=== PATIENT | male | born 1940 | race Caucasian/White ===

== ENCOUNTER → 2023-11-13 15:23 | Outpatient (REF) | payer MEDICARE, SELFPAY ==
[2023-11-13 16:14] LABS: % Basophils 0.2 % (0-2); % Immature Granulocytes 0.4 % (0-0.5); % Lymphocytes 17.1 % (20.5-51.1); % Monocytes 23.8 % (1.7-9.3); % Neutrophils 58.5 % (42.2-75.2); Absolute Lymphocytes 0.8 10^3/uL (1.2-3.4); Absolute Monocytes 1.1 10^3/uL (0.1-0.6); Absolute Neutrophils 2.7 10^3/uL (1.4-6.5); Hemoglobin 9.8 g/dL (13.0-18.0); Mean Corpuscular Hgb 35.5 pg (27.0-31.0); Mean Corpuscular Volume 101.4 fL (80.0-94.0); Mean Platelet Volume 9.8 fL (7.4-10.4); Nucleated Red Blood Cells % 0 % (-); Platelet Count 166 10^3/uL (130-400); Red Blood Cell Count 2.76 10^6/uL (4.70-6.10); White Blood Cell Count 4.6 10^3/uL (4.8-10.8)
[2023-11-13 17:38] LABS: ALT (SGPT) 13 U/L (0-50); AST (SGOT) 24 U/L (17-59); Albumin 4.3 g/dl (3.5-5.0); Alkaline Phosphatase 92 U/L (38-126); Blood Urea Nitrogen 24 mg/dl (9-20); Calcium 9.9 mg/dl (8.4-10.2); Carbon Dioxide 26 mmol/L (22-30); Chloride 101 mmol/L (98-107); Glucose 104 mg/dl (70-99); Potassium 4.2 mmol/L (3.5-5.1); Sodium 139 mmol/L (135-145); Total Bilirubin 0.6 mg/dl (0.2-1.3); Total Protein 6.9 g/dl (6.3-8.2); eGFR 54.17
== END ==
LOC: REG 15:23
PROVIDERS: ATTENDING PHYSICIAN Internal Medicine Hematology & Oncology; FAMILY PHYSICIAN Family Medicine
DX: C92.01 Acute myeloblastic leukemia, in remission (principal)
CPT/HCPCS: 36415; 80053; 85025

== ENCOUNTER → 2023-12-09 13:52 | Outpatient (REF) | payer MEDICARE, SELFPAY ==
[2023-12-09 14:16] LABS: % Basophils 1.7 % (0-2); % Eosinophils 0.6 % (0-6); % Immature Granulocytes 2.3 % (0-0.5); % Lymphocytes 34.5 % (20.5-51.1); % Monocytes 2.9 % (1.7-9.3); Absolute Lymphocytes 0.6 10^3/uL (1.2-3.4); Absolute Monocytes 0.1 10^3/uL (0.1-0.6); Hematocrit 24.6 % (39.0-52.0); Hemoglobin 8.4 g/dL (13.0-18.0); Mean Corp Hgb Conc. 34.1 g/dL (33.0-37.0); Mean Corpuscular Hgb 36.1 pg (27.0-31.0); Mean Corpuscular Volume 105.6 fL (80.0-94.0); Mean Platelet Volume 10.5 fL (7.4-10.4); Nucleated Red Blood Cells % 0 % (-); Platelet Count 86 10^3/uL (130-400); Red Blood Cell Count 2.33 10^6/uL (4.70-6.10); Red Cell Dist. Width 18.6 % (11.5-14.5); White Blood Cell Count 1.7 10^3/uL (4.8-10.8)
== END ==
LOC: REG 13:52
PROVIDERS: ATTENDING PHYSICIAN Registered Nurse; FAMILY PHYSICIAN Family Medicine
DX: C92.01 Acute myeloblastic leukemia, in remission (principal)
CPT/HCPCS: 36415; 85025

== ENCOUNTER → 2024-01-01 11:02 | Outpatient (REF) | payer MEDICARE, SELFPAY ==
[2024-01-01 10:27] LABS: % Basophils 0.4 % (0-2); % Immature Granulocytes 0.2 % (0-0.5); % Lymphocytes 9.3 % (20.5-51.1); % Monocytes 11.8 % (1.7-9.3); % Neutrophils 78.3 % (42.2-75.2); Absolute Lymphocytes 0.5 10^3/uL (1.2-3.4); Absolute Monocytes 0.7 10^3/uL (0.1-0.6); Absolute Neutrophils 4.4 10^3/uL (1.4-6.5); Hematocrit 31.2 % (39.0-52.0); Hemoglobin 10.4 g/dL (13.0-18.0); Mean Corp Hgb Conc. 33.3 g/dL (33.0-37.0); Mean Corpuscular Hgb 36.1 pg (27.0-31.0); Mean Corpuscular Volume 108.3 fL (80.0-94.0); Mean Platelet Volume 9.5 fL (7.4-10.4); Platelet Count 193 10^3/uL (130-400); Red Blood Cell Count 2.88 10^6/uL (4.70-6.10); Red Cell Dist. Width 15.5 % (11.5-14.5); White Blood Cell Count 5.6 10^3/uL (4.8-10.8)
== END ==
LOC: OIDL 11:02
PROVIDERS: ATTENDING PHYSICIAN Internal Medicine Hematology & Oncology
DX: C92.01 Acute myeloblastic leukemia, in remission (principal)
CPT/HCPCS: 85025

== ENCOUNTER → 2024-01-12 12:58 | Outpatient (REF) | payer MEDICARE, SELFPAY ==
[2024-01-12 13:56] LABS: % Eosinophils 0.5 % (0-6); % Monocytes 7.4 % (1.7-9.3); % Neutrophils 65.1 % (42.2-75.2); Absolute Lymphocytes 0.5 10^3/uL (1.2-3.4); Absolute Monocytes 0.2 10^3/uL (0.1-0.6); Absolute Neutrophils 1.3 10^3/uL (1.4-6.5); Hematocrit 24.8 % (39.0-52.0); Hemoglobin 8.5 g/dL (13.0-18.0); Mean Corp Hgb Conc. 34.3 g/dL (33.0-37.0); Mean Corpuscular Hgb 36.5 pg (27.0-31.0); Mean Corpuscular Volume 106.4 fL (80.0-94.0); Mean Platelet Volume 11.4 fL (7.4-10.4); Nucleated Red Blood Cells % 0 % (-); Platelet Count 55 10^3/uL (130-400); Red Blood Cell Count 2.33 10^6/uL (4.70-6.10); Red Cell Dist. Width 14.9 % (11.5-14.5)
== END ==
LOC: REG 12:58
PROVIDERS: ATTENDING PHYSICIAN Internal Medicine Hematology & Oncology; FAMILY PHYSICIAN Family Medicine
DX: C92.01 Acute myeloblastic leukemia, in remission (principal)
CPT/HCPCS: 36415; 85025

== ENCOUNTER → 2024-03-16 12:08 | Outpatient (REF) | payer MEDICARE, SELFPAY ==
[2024-03-16 13:58] LABS: % Basophils 0.2 % (0-2); % Immature Granulocytes 0.4 % (0-0.5); % Lymphocytes 19.8 % (20.5-51.1); % Monocytes 19.8 % (1.7-9.3); % Neutrophils 59.8 % (42.2-75.2); Hematocrit 28.9 % (39.0-52.0); Hemoglobin 9.9 g/dL (13.0-18.0); Mean Corp Hgb Conc. 34.3 g/dL (33.0-37.0); Mean Corpuscular Hgb 36.5 pg (27.0-31.0); Mean Corpuscular Volume 106.6 fL (80.0-94.0); Nucleated Red Blood Cells % 0 % (-); Platelet Count 217 10^3/uL (130-400); Red Blood Cell Count 2.71 10^6/uL (4.70-6.10); Red Cell Dist. Width 15.4 % (11.5-14.5)
[2024-03-16 14:45] LABS: ALT (SGPT) 18 U/L (0-50); AST (SGOT) 28 U/L (17-59); Albumin 4.7 g/dl (3.5-5.0); Alkaline Phosphatase 101 U/L (38-126); Blood Urea Nitrogen 23 mg/dl (9-20); Calcium 9.8 mg/dl (8.4-10.2); Carbon Dioxide 29 mmol/L (22-30); Chloride 104 mmol/L (98-107); Glucose 123 mg/dl (70-99); Potassium 4.4 mmol/L (3.5-5.1); Sodium 143 mmol/L (135-145); Total Bilirubin 0.7 mg/dl (0.2-1.3); Total Protein 7.3 g/dl (6.3-8.2); eGFR 59.26
== END ==
LOC: REG 12:08
PROVIDERS: ATTENDING PHYSICIAN Internal Medicine Hematology & Oncology; FAMILY PHYSICIAN Family Medicine
DX: C92.01 Acute myeloblastic leukemia, in remission (principal)
CPT/HCPCS: 36415; 80053; 85025

== ENCOUNTER → 2024-03-18 08:41 | Outpatient (REF) | payer MEDICARE, SELFPAY ==
[2024-03-18 08:55] VITALS: BP 156/65; BP_SYST 53
[2024-03-18] MEDS: ANCEF 10 IV (09:22)
[2024-03-18 10:30] VITALS: BP 147/52; BP_SYST 70
[2024-03-18 10:45] VITALS: BP 147/52
== END ==
LOC: RADI 08:41
PROVIDERS: ATTENDING PHYSICIAN Internal Medicine Hematology & Oncology; FAMILY PHYSICIAN Family Medicine
DX: C92.01 Acute myeloblastic leukemia, in remission (principal)
CPT/HCPCS: 36561; 76937; 77001; 99152; 99153; C1729; C1769

== ENCOUNTER → 2024-04-06 13:19 | Outpatient (REF) | payer MEDICARE, SELFPAY ==
[2024-04-06 14:37] LABS: % Basophils 0.6 % (0-2); % Eosinophils 0.6 % (0-6); % Immature Granulocytes 10.1 % (0-0.5); % Lymphocytes 28.3 % (20.5-51.1); % Monocytes 6.3 % (1.7-9.3); % Neutrophils 54.1 % (42.2-75.2); Absolute Immature Granulocytes 0.2 10^3/uL (0-0.05); Absolute Lymphocytes 0.5 10^3/uL (1.2-3.4); Absolute Monocytes 0.1 10^3/uL (0.1-0.6); Absolute Neutrophils 0.9 10^3/uL (1.4-6.5); Hematocrit 24.9 % (39.0-52.0); Hemoglobin 8.4 g/dL (13.0-18.0); Mean Corp Hgb Conc. 33.7 g/dL (33.0-37.0); Mean Corpuscular Hgb 35.6 pg (27.0-31.0); Mean Corpuscular Volume 105.5 fL (80.0-94.0); Mean Platelet Volume 12.7 fL (7.4-10.4); Nucleated Red Blood Cells % 0 % (-); Platelet Count 53 10^3/uL (130-400); Red Blood Cell Count 2.36 10^6/uL (4.70-6.10); Red Cell Dist. Width 14.7 % (11.5-14.5); White Blood Cell Count 1.6 10^3/uL (4.8-10.8)
[2024-04-06 15:49] LABS: ALT (SGPT) 14 U/L (0-50); AST (SGOT) 20 U/L (17-59); Albumin 4.3 g/dl (3.5-5.0); Alkaline Phosphatase 93 U/L (38-126); Blood Urea Nitrogen 25 mg/dl (9-20); Calcium 9.2 mg/dl (8.4-10.2); Carbon Dioxide 25 mmol/L (22-30); Chloride 105 mmol/L (98-107); Glucose 107 mg/dl (70-99); Sodium 138 mmol/L (135-145); Total Bilirubin 0.5 mg/dl (0.2-1.3); Total Protein 6.5 g/dl (6.3-8.2); eGFR 53.84
== END ==
LOC: REG 13:19
PROVIDERS: ATTENDING PHYSICIAN Internal Medicine Hematology & Oncology; FAMILY PHYSICIAN Family Medicine
DX: C92.01 Acute myeloblastic leukemia, in remission (principal)
CPT/HCPCS: 36415; 80053; 85025

== ENCOUNTER → 2024-04-20 14:06 | Outpatient (REF) | payer MEDICARE, SELFPAY ==
[2024-04-20 14:39] LABS: % Basophils 0.5 % (0-2); % Eosinophils 0.3 % (0-6); % Immature Granulocytes 0.5 % (0-0.5); % Lymphocytes 20.3 % (20.5-51.1); % Monocytes 8.9 % (1.7-9.3); % Neutrophils 69.5 % (42.2-75.2); Absolute Lymphocytes 0.8 10^3/uL (1.2-3.4); Absolute Monocytes 0.3 10^3/uL (0.1-0.6); Absolute Neutrophils 2.6 10^3/uL (1.4-6.5); Hematocrit 27.7 % (39.0-52.0); Hemoglobin 9.6 g/dL (13.0-18.0); Mean Corp Hgb Conc. 34.7 g/dL (33.0-37.0); Mean Corpuscular Hgb 36.5 pg (27.0-31.0); Mean Corpuscular Volume 105.3 fL (80.0-94.0); Mean Platelet Volume 9.7 fL (7.4-10.4); Nucleated Red Blood Cells % 0 % (-); Platelet Count 226 10^3/uL (130-400); Red Blood Cell Count 2.63 10^6/uL (4.70-6.10); Red Cell Dist. Width 14.6 % (11.5-14.5); White Blood Cell Count 3.8 10^3/uL (4.8-10.8)
== END ==
LOC: REG 14:06
PROVIDERS: ATTENDING PHYSICIAN Internal Medicine Hematology & Oncology; FAMILY PHYSICIAN Family Medicine
DX: C92.01 Acute myeloblastic leukemia, in remission (principal)
CPT/HCPCS: 36415; 85025

== ENCOUNTER → 2024-05-13 11:01 | Outpatient (REF) | payer MEDICARE, SELFPAY ==
[2024-05-13 13:26] LABS: Blood Urea Nitrogen 24 mg/dl (9-20); Calcium 9.7 mg/dl (8.4-10.2); Carbon Dioxide 24 mmol/L (22-30); Chloride 105 mmol/L (98-107); Glucose 109 mg/dl (70-99); Magnesium 1.9 mg/dl (1.6-2.3); Potassium 4.4 mmol/L (3.5-5.1); Sodium 139 mmol/L (135-145); eGFR 49.25
== END ==
LOC: REG 11:01
PROVIDERS: ATTENDING PHYSICIAN Internal Medicine Cardiovascular Disease; FAMILY PHYSICIAN Family Medicine
DX: I10 Essential (primary) hypertension (principal); I25.10 Atherosclerotic heart disease of native coronary artery without angina pectoris; E78.5 Hyperlipidemia, unspecified; I48.0 Paroxysmal atrial fibrillation
CPT/HCPCS: 36415; 80048; 83735

== ENCOUNTER → 2024-06-07 11:51 | Outpatient (REF) | payer MEDICARE, SELFPAY ==
[2024-06-07 13:21] LABS: Hematocrit 26.5 % (39.0-52.0); Hemoglobin 9.2 g/dL (13.0-18.0); Mean Corp Hgb Conc. 34.7 g/dL (33.0-37.0); Mean Corpuscular Hgb 34.5 pg (27.0-31.0); Mean Corpuscular Volume 99.3 fL (80.0-94.0); Mean Platelet Volume 10.2 fL (7.4-10.4); Platelet Count 221 10^3/uL (130-400); Red Blood Cell Count 2.67 10^6/uL (4.70-6.10); Red Cell Dist. Width 14.6 % (11.5-14.5); White Blood Cell Count 5.9 10^3/uL (4.8-10.8)
[2024-06-07 15:15] LABS: Segmented Neutrophils 66 % (42-75)
[2024-06-07 15:16] LABS: Lymphocytes 9 % (20-51); Monocytes 25 % (2-9); Normal RBC Morphology Yes; Platelets Checked Yes
[2024-06-07 15:17] LABS: Absolute Neutrophils -Man Diff 3.8 10^3/uL (1.4-6.5); Band Neutrophils 0 % (0-3); Total Cells Counted 100
== END ==
LOC: REG 11:51
PROVIDERS: ATTENDING PHYSICIAN Internal Medicine Hematology & Oncology; FAMILY PHYSICIAN Family Medicine
DX: C92.01 Acute myeloblastic leukemia, in remission (principal)
CPT/HCPCS: 36415; 85025

== ENCOUNTER → 2024-08-04 08:12 | Outpatient (REF) | payer MEDICARE, SELFPAY | LOC: RCS 08:12 | PROVIDERS: ATTENDING PHYSICIAN Internal Medicine Cardiovascular Disease; FAMILY PHYSICIAN Family Medicine | DX: R06.09 Other forms of dyspnea (principal); I25.10 Atherosclerotic heart disease of native coronary artery without angina pectoris | CPT/HCPCS: 93306; 93356 ==

== ENCOUNTER → 2024-09-02 15:59 | Outpatient (REF) | payer MEDICARE, SELFPAY ==
[2024-09-02 15:57] LABS: ALT (SGPT) 17 U/L (0-50); AST (SGOT) 24 U/L (17-59); Albumin 4.4 g/dl (3.5-5.0); Alkaline Phosphatase 126 U/L (38-126); Blood Urea Nitrogen 27 mg/dl (9-20); Calcium 9.1 mg/dl (8.4-10.2); Carbon Dioxide 26 mmol/L (22-30); Chloride 104 mmol/L (98-107); Glucose 123 mg/dl (70-99); Potassium 4.7 mmol/L (3.5-5.1); Sodium 142 mmol/L (135-145); Total Bilirubin 0.3 mg/dl (0.2-1.3); Total Protein 6.9 g/dl (6.3-8.2); eGFR 41.96
[2024-09-02 16:01] LABS: Hematocrit 26.4 % (39.0-52.0); Hemoglobin 8.7 g/dL (13.0-18.0); Mean Corpuscular Hgb 36.3 pg (27.0-31.0); Mean Platelet Volume 9.7 fL (7.4-10.4); Platelet Count 198 10^3/uL (130-400); White Blood Cell Count 6.1 10^3/uL (4.8-10.8)
[2024-09-02 16:34] LABS: Absolute Neutrophils -Man Diff 3.9 10^3/uL (1.4-6.5); Band Neutrophils 0 % (0-3); Lymphocytes 18 % (20-51); Monocytes 18 % (2-9); Normal RBC Morphology No; Segmented Neutrophils 64 % (42-75)
[2024-09-02 16:35] LABS: Anisocytosis 1+; Macrocytosis 1+; Platelets Checked Yes
[2024-09-02 16:36] LABS: Microcytosis Slight; Ovalocytes Slight
[2024-09-02 16:37] LABS: Total Cells Counted 100
== END ==
LOC: OIDL 15:59
PROVIDERS: ATTENDING PHYSICIAN Internal Medicine Hematology & Oncology
DX: C92.01 Acute myeloblastic leukemia, in remission (principal)
CPT/HCPCS: 80053; 85025

== ENCOUNTER → 2024-09-08 13:43 | Outpatient (REF) | payer MEDICARE, SELFPAY ==
[2024-09-08 15:14] LABS: Blood Urea Nitrogen 26 mg/dl (9-20); Calcium 8.7 mg/dl (8.4-10.2); Carbon Dioxide 19 mmol/L (22-30); Chloride 109 mmol/L (98-107); Glucose 87 mg/dl (70-99); Iron 92 ug/dl (49-181); Potassium 5.1 mmol/L (3.5-5.1); Sodium 140 mmol/L (135-145); eGFR 41.96
[2024-09-08 15:24] LABS: Percent Saturation 27 % (20-50); Total Iron Binding Capacity 334 ug/dl (261-462)
== END ==
LOC: OIDL 13:43
PROVIDERS: ATTENDING PHYSICIAN Nurse Practitioner Adult Health
DX: C92.01 Acute myeloblastic leukemia, in remission (principal)
CPT/HCPCS: 80048; 82728; 83540; 83550

== ENCOUNTER → 2024-09-09 14:10 | Outpatient (REF) | payer MEDICARE, SELFPAY ==
[2024-09-09 12:03] LABS: Blood Urea Nitrogen 26 mg/dl (9-20); Calcium 9.2 mg/dl (8.4-10.2); Carbon Dioxide 20 mmol/L (22-30); Chloride 108 mmol/L (98-107); Glucose 164 mg/dl (70-99); Potassium 5.1 mmol/L (3.5-5.1); Sodium 140 mmol/L (135-145); eGFR 39.02
== END ==
LOC: OIDL 14:10
PROVIDERS: ATTENDING PHYSICIAN Nurse Practitioner Adult Health
DX: C92.01 Acute myeloblastic leukemia, in remission (principal)
CPT/HCPCS: 80048

== ENCOUNTER → 2024-10-06 13:35 | Outpatient (REF) | payer MEDICARE, OTHER, SELFPAY ==
[2024-10-06 14:44] LABS: Hematocrit 25.5 % (39.0-52.0); Hemoglobin 8.8 g/dL (13.0-18.0); Mean Corp Hgb Conc. 34.5 g/dL (33.0-37.0); Mean Corpuscular Hgb 37.4 pg (27.0-31.0); Mean Corpuscular Volume 108.5 fL (80.0-94.0); Mean Platelet Volume 9.8 fL (7.4-10.4); Platelet Count 210 10^3/uL (130-400); Red Blood Cell Count 2.35 10^6/uL (4.70-6.10); Red Cell Dist. Width 15.3 % (11.5-14.5); White Blood Cell Count 5.1 10^3/uL (4.8-10.8)
[2024-10-06 15:32] LABS: % Basophils 0.2 % (0-2); % Lymphocytes 10.1 % (20.5-51.1); % Monocytes 6.3 % (1.7-9.3); % Neutrophils 82.4 % (42.2-75.2); Absolute Immature Granulocytes 0.1 10^3/uL (0-0.05); Absolute Lymphocytes 0.5 10^3/uL (1.2-3.4); Absolute Monocytes 0.3 10^3/uL (0.1-0.6); Absolute Neutrophils 4.2 10^3/uL (1.4-6.5); Nucleated Red Blood Cells % 0 % (-)
== END ==
LOC: REG 13:35
PROVIDERS: ATTENDING PHYSICIAN Internal Medicine Hematology & Oncology
DX: C92.01 Acute myeloblastic leukemia, in remission (principal)
CPT/HCPCS: 36415; 85025

== ENCOUNTER 2024-11-10 17:07 | Inpatient (IN) | payer MEDICARE, OTHER, SELFPAY ==
[2024-11-10 12:19] VITALS: BP 105/48
[2024-11-10 12:49] LABS: Hematocrit 25.7 % (39.0-52.0); Hemoglobin 8.7 g/dL (13.0-18.0); Mean Corp Hgb Conc. 33.9 g/dL (33.0-37.0); Mean Corpuscular Hgb 35.8 pg (27.0-31.0); Mean Corpuscular Volume 105.8 fL (80.0-94.0); Mean Platelet Volume 10.8 fL (7.4-10.4); Platelet Count 60 10^3/uL (130-400); Red Blood Cell Count 2.43 10^6/uL (4.70-6.10); Red Cell Dist. Width 14.6 % (11.5-14.5)
[2024-11-10 12:50] LABS: White Blood Cell Count 0.9 10^3/uL (4.8-10.8)
--- NOTE | 2024-11-10 13:06 | ED.GENMED ---
History of Present Illness
General
Chief Complaint: Cold/Flu/URI Symptoms
Source: patient and spouse
Exam Limitations: none
Time Seen by Provider: 11/10/24 12:56
History of Present Illness
History of Present Illness:
84yoM with a history of leukemia receiving chemotherapy, coronary artery disease s/p PCI, hypertension, and paroxysmal atrial fibrillation presenting with his for evaluation of a cough x 5 days. Patient reports a severe cough that is
productive of milky phlegm and he feels short of breath. He is also having fevers with a Tmax of 101 last night. Patient is having some chest discomfort primarily with coughing. Symptoms feel similar to when he has had pneumonia in the past. He
had some diarrhea last week which seem to have resolved. He denies any vomiting or urinary symptoms. Last chemotherapy treatment was about 2 weeks ago.
Past History
Past History
ED Past Medical History: CAD, HTN, Hypercholesterolemia and Other (History of pneumonia, frequent urination.)
ED Past Surgical History: Cardiac (Cardiac catheterization with stents) and Tonsilectomy
Social History
Tobacco: Former smoker
Alcohol: None
Personal:
Living: with family
Employment: Retired
Family History
Family History: Other (Grandmother with diabetes, father with pneumonia)
Phy Exam
Physical Exam
Physical Exam:
Appears fatigued, non-toxic
General Physical Exam
General Presentation: no apparent distress
General Skin: warm and dry
General Habitus: normal and elderly
ENT Exam
ENT Exam: normocephalic
Cardiovascular Exam
Cardiovascular Exam: regular rate/rhythm
Pulmonary Exam
Pulmonary Exam: no respiratory distress and other (Frequent dry cough. Rhonchi noted bilaterally. Speaking in full sentences. )
Gastrointestinal Exam
Gastrointestinal Exam: non tender, soft and non distended
Neurological Exam
Neurological Exam: alert
[place] Coma Scale
Eye Opening: Spontaneous
Verbal Response: Oriented
Motor Response: Obeys Commands
GCS Total Score: 15
Skin Exam
Skin Exam: normal color and warm/dry
Psychiatric Exam
Psychiatric Exam: normal mood/affect
Course
Orders/Labs/Results
Orders:
Orders
11/10/24 12:24
Electrocardiogram (*1) Urgent
Reason for Study: Shortness of Breath
EKG- Treatment ONCE
11/10/24 12:27
COVID-19 Antigen Urgent
Source: Nasal Swab
Complete Blood Count/With Diff Urgent
Comprehensive Metabolic Panel Urgent
Manual Differential Urgent
Influenza A+B Rapid Molecular Urgent
SANGITA Source: Nasal Swab
Specimen Description:
11/10/24 13:05
CR Chest - 2 Views Urgent
Comment:
Reason For Exam: cough, SOB
11/10/24 13:10
0.9% Sodium Chloride 500 ml [Nss] 500 ml IV BOLUS
11/10/24 13:40
Lactate Level [Lactic Acid] Urgent
Troponin I Urgent
Blood Culture Q30M
SANGITA Source: Blood/Venous
Specimen Description:
Blood Culture Q30M
SANGITA Source: Blood/Venous
Specimen Description:
11/10/24 15:09
Cefepime HCl [Maxipime] 2,000 mg IV NOW STA
11/10/24 15:40
Urinalysis Reflex To Culture Urgent
Date Specimen was Collected: 11/10/24
Time Specimen was Collected: 15:41
11/10/24 15:45
Sputum Culture [Respiratory Culture/Gram Stain] Routine
SANGITA Source: Sputum
Specimen Description:
Abnormal Lab Results
11/10/24
12:27
WBC 0.9 L* 10^3/uL
(4.8-10.8)
RBC 2.43 L 10^6/uL
(4.70-6.10)
Hgb 8.7 L g/dL
(13.0-18.0)
Hct 25.7 L %
(39.0-52.0)
MCV 105.8 H fL
(80.0-94.0)
MCH 35.8 H pg
(27.0-31.0)
RDW 14.6 H %
(11.5-14.5)
Plt Count 60 L 10^3/uL
(130-400)
MPV 10.8 H fL
(7.4-10.4)
Abs Neuts (Manual) 0.5 L* 10^3/uL
(1.4-6.5)
Sodium 134 L mmol/L
(135-145)
Creatinine 1.4 H mg/dL
(0.7-1.3)
Glucose 131 H mg/dl
(70-99)
Alkaline Phosphatase 128 H U/L
(38-126)
11/10/24 12:27
11/10/24 12:27
Vital Signs
Initial and Last Documented VS:
Initial Vital Signs
Temp Pulse Resp BP Pulse Ox
99.1 F 103 20 105/48 97
11/10/24 12:19 11/10/24 12:19 11/10/24 12:19 11/10/24 12:19 11/10/24 12:19
Last Documented Vital Signs
Temp Pulse Resp BP Pulse Ox
99.1 F 99 20 110/72 99
11/10/24 12:19 11/10/24 14:51 11/10/24 14:51 11/10/24 14:51 11/10/24 14:51
MDM/Problems Addressed
Differential Diagnosis Includes:
84yoM here with cough x 5 days. Also having fevers up to 101 at home. Feels short of breath and believes he has pneumonia. Temp 99.1 on arrival. HR 103, remainder of vitals normal. Rhonchi noted on lung exam with frequent cough. Differential
diagnosis includes but is not limited to: bronchitis, viral illness, pneumonia
Initial ED plan: Check septic workup including blood cultures, lactate, COVID/flu swab, troponin/EKG, and CXR. IV fluid bolus.
*EKG
Interpreted by ED Provider?: Yes
EKG Intrepretation Date: 11/10/24
Heart Rate: 93
Rate: normal
Rhythm: sinus
[place]: normal axis
Interval: normal interval
QRS Pattern: normal QRS
Ischemia: no ischemia
*Critical Care Note
Total Time (30-74mins, 75-104mins- exclusive of procedures): Not Applicable
Update Note
Update Note:
WBC 0.9 and absolute neutrophils 0.5. Platelets 60. Hemoglobin 8.7 which is near baseline. COVID/flu swab negative. Possible L sided infiltrate seen on CXR per my interpretation. Radiology read is pending. IV cefepime ordered and patient admitted
for further management.
ED Attending Note
-
Portions of this chart may have been created with voice recognition software.� Occasional wrong word or��sound alike� substitutions may have occurred due to the inherent limitations of voice recognition software.
Discharge Plan
Departure
Patient Disposition: Admit
Date of Disposition: 11/10/24
Time of Disposition: 15:13
Presentation/result/management discussed w/ accepting MD/DO: Hospitalist
Discharge Problem:
Neutropenic fever, Pneumonia
Prescriptions:
No Action
rosuvastatin 10 MG tablet
10 mg PO QPM
acyclovir 800 MG tablet
800 mg PO BID
voriconazole 200 MG tablet
200 mg PO BID
aspirin 81 MG tablet,delayed release (DR/EC)
81 mg PO DAILY
Venclexta 100 MG tablet
100 mg PO DAILY Qty: 0 0RF
Rx Instructions:
when recomended by oncology
amlodipine 5 mg Tablet
5 mg PO DAILY
amiodarone 100 mg tablet
100 mg PO DAILY
metoprolol tartrate 25 MG tablet
25 mg PO BID
Rx Instructions:
Take 50mg qam, 25mg qpm
Referrals:
Tien Blake MD [Family Provider] -
Interventions
Interventions:
*Risk Screen - Suicide Last Done: 11/10/24 12:19
*General Assessment Last Done: 11/10/24 12:19
*Neglect/Abuse Screening Last Done: 11/10/24 12:19
ED- Fall Risk Assessment Last Done: 11/10/24 12:55
*ED COVID-19 Vaccine History Last Done: 11/10/24 12:19
ED- Pulmonary Assessment Last Done: 11/10/24 12:55
Discharge Date and Time
Print Language: SCOTTISH
[2024-11-10 13:11] LABS: ALT (SGPT) 14 U/L (0-50); AST (SGOT) 21 U/L (17-59); Albumin 4.4 g/dl (3.5-5.0); Alkaline Phosphatase 128 U/L (38-126); Blood Urea Nitrogen 20 mg/dl (9-20); Calcium 9.2 mg/dl (8.4-10.2); Carbon Dioxide 24 mmol/L (22-30); Chloride 99 mmol/L (98-107); Glucose 131 mg/dl (70-99); Potassium 3.9 mmol/L (3.5-5.1); Sodium 134 mmol/L (135-145); Total Bilirubin 0.9 mg/dl (0.2-1.3); Total Protein 6.9 g/dl (6.3-8.2); eGFR 49.25
[2024-11-10 13:16] LABS: COVID-19 Antigen Negative (Negative)
[2024-11-10 13:24] LABS: Atypical Lymphocytes 1 %; Band Neutrophils 0 % (0-3); Lymphocytes 33 % (20-51); Monocytes 7 % (2-9); Segmented Neutrophils 59 % (42-75)
[2024-11-10 13:25] LABS: Anisocytosis 1+; Hypochromasia 1+; Normal RBC Morphology No; Platelets Checked Yes
[2024-11-10 13:26] LABS: Absolute Neutrophils -Man Diff 0.5 10^3/uL (1.4-6.5); Total Cells Counted 100
[2024-11-10] MEDS: NSS 500 IV (13:40)
[2024-11-10 14:20] LABS: Lactic Acid 0.8 mmol/L (0.7-2.0)
[2024-11-10 14:27] LABS: Troponin I < 0.012 ng/ml
[2024-11-10 14:51] VITALS: BP 110/72
[2024-11-10] MEDS: MAXIPIME 2000 MG IV (15:19)
--- NOTE | 2024-11-10 16:00 | HPS.HSE ---
Family Physician
-
Family Physician: Tien Blake
Chief Complaint
-
Cough
History of Present Illness
Patient is an 84 y/o male past medical history of AML, A-Fib, CAD, HTN and BPH who presents with cough. Patient reports cough started about 1 week ago. He reports cough is productive of milky/white thick mucus. He reports associated shortness of
breath, and chest soreness due to frequent cough. He reports fevers at home as high as 101 �F last night.
Medical History
Past Medical History
Past Medical History: Reports Other
Additional Past Medical History:
Acute Myeloid Leukemia
Coronary Artery Disease s/p Stents
Paroxysmal Atrial Fibrillation
Essential Hypertension
Hyperlipidemia
CKD Stage IIIA
Psoriasis
BPH
Past Surgical History: Reports Other
Additional Past Surgical History:
Right Femur Fracture Repair
Social History
Tobacco: Former Smoker (Quit over 40 years ago)
Family History
Family History: Not pertinent
Allergies / Home Medications
Allergies reflects when Allergies were last updated in [employer].
Home Medications with original date entered in [employer] [facility]
Allergy/Medication List:
Allergies
Allergy/AdvReac Type Severity Reaction Status Date / Time
abciximab [From Reopro] Allergy THROMBOCYTO Verified 11/10/24 12:23
PENIA
Home Medications
rosuvastatin 10 mg tablet 10 mg PO QPM High cholesterol 11/22/20
acyclovir 800 mg tablet 800 mg PO BID Infection 02/08/22
aspirin 81 mg tablet,delayed release 81 mg PO DAILY Blood clot prevention/tx 02/08/22
voriconazole 200 mg tablet 200 mg PO BID Infection 02/08/22
venetoclax 100 mg tablet (Venclexta) 100 mg PO DAILY Cancer ##0 02/15/22
amlodipine 5 mg tablet 5 mg PO DAILY 03/18/24
amiodarone 100 mg tablet 100 mg PO DAILY 11/10/24
metoprolol tartrate 25 mg tablet 25 mg PO BID 11/10/24
Review of Systems
-
A 12 point ROS was completed and negative except as noted: Yes
Constitutional: Reports Fever
Respiratory: Reports Cough and Trouble Breathing
Cardiac: Denies Chest Pain or Palpitations
Abdomen/GI: Reports Diarrhea (Notes several episodes last week, but resolved at present time); Denies Abdominal Pain, Nausea or Vomiting
Physical Exam
Vital Signs
Vital Signs
Temp Pulse Resp BP Pulse Ox
99.1 F 99 20 110/72 99
11/10/24 12:19 11/10/24 14:51 11/10/24 14:51 11/10/24 14:51 11/10/24 14:51
Physical Exam
General: Comfortable and Conversant
HEENT: Anicteric and Moist mucous membranes
Respiratory: Rhonchi, Non Labored Respirations and Other (Frequent Cough)
GI: Soft, Non Tender and Distended
Rectal: Deferred by Provider
Musculoskeletal: No Clubbing, No Cyanosis and No Edema
Skin: Warm and Dry
Neuro: Awake, Alert, Oriented and Nonfocal/grossly intact
Psych: Calm
Laboratory Results
-
11/10/24 12:27
11/10/24 12:27
Laboratory Results
Lactic Acid 0.8 mmol/L (0.7-2.0) 11/10/24 13:40
Total Bilirubin 0.9 mg/dl (0.2-1.3) 11/10/24 12:27
AST 21 U/L (17-59) 11/10/24 12:27
ALT 14 U/L (0-50) 11/10/24 12:27
Alkaline Phosphatase 128 U/L (38-126) H 11/10/24 12:27
Troponin I < 0.012 ng/ml 11/10/24 13:40
Data Reviewed
-
Diagnostic Radiology: Report Reviewed by me
Lab Data: Labs Reviewed by me
Impression/Plan
-
SIRS, secondary to Neutropenic Fever vs Pneumonia with negative CXR
-Continue empiric cefepime
Acute Bronchitis, with possible Pneumonia
-Check Sputum Culture
-Continue DuoNeb QID and PRN
-Continue Mucinex
-Continue Tessalon Perles PRN
Acute Myeloid Leukemia
-Last chemotherapy ~ 2 weeks ago
-Continue acyclovir and voriconazole for prophylaxis
-Hold Venclexta
Coronary Artery Disease s/p Stents
-Continue aspirin
Paroxysmal Atrial Fibrillation
-Continue amiodarone and metoprolol
-Patient is not on anticoagulation as outpatient likely due to thrombocytopenia
Essential Hypertension
-Continue amlodipine and metoprolol
Hyperlipidemia
-Continue rosuvastatin
CKD Stage IIIA
-Creatinine at baseline
DVT proph: SCDs
Code Status: Full Code
--- NOTE | 2024-11-10 16:51 | W.PN.UPDATE ---
Update Note
Progress Note Update
This is an addendum to the H&P written by Nicole Martinez in 11/10/2024.� Patient seen and examined independently with PA.
84-year-old male past medical history of AML Venclexta and chemotherapy most recently 2 weeks ago, CAD, paroxysmal atrial fibrillation, CKD, hypertension, BPH, presenting with productive cough for a week shortness of breath and fever last night.
Labs show neutropenia with ANC of 0.5.� Platelets of 60, hemoglobin of 8.7.�
Labs show creatinine stable 1.4.
COVID and influenza negative.
Rhonchorous on examination.
Patient clinically with SIRS/neutropenic sepsis likely secondary to pneumonia versus acute bronchitis although chest x-ray negative.
Check blood cultures.� Check sputum culture.� IV fluids.� Check urinalysis.� Cefepime.� Hold Venclexta.� Oncology consulted.
[2024-11-10 18:01] VITALS: BP 106/70
[2024-11-10 19:26] LABS: Urine Albumin 2+ (Neg - Trace); Urine Bilirubin Negative (Negative); Urine Character Clear (Clear); Urine Color Yellow; Urine Glucose 2+ (Negative); Urine Ketone Negative (Negative); Urine Leukocyte Negative (Negative); Urine Nitrite Negative (Negative); Urine Occult Blood 1+ (Negative); Urine Urobilinogen Negative (Neg - 1+)
[2024-11-10 19:32] LABS: Urine Mucus Few; Urine Squamous Cell 0-2 /LPF (Few)
[2024-11-10 19:35] LABS: Urine Bacteria Moderate (Negative); Urine Red Blood Cell 0-2 /HPF (0-2); Urine White Cell 0-2 /HPF (0-5)
[2024-11-10 20:58] VITALS: BMI 21.2
[2024-11-10 21:09] VITALS: BP 138/55
[2024-11-10] MEDS: DUONEB 3 ML INH (21:34)
[2024-11-10] MEDS: CRESTOR 10 MG PO (21:52)
[2024-11-10] MEDS: LOPRESSOR 25 MG PO (21:52)
[2024-11-10] MEDS: MUCINEX 600 MG PO (21:52)
[2024-11-10] MEDS: VFEND 200 MG PO (21:53)
[2024-11-10] MEDS: ZOVIRAX 800 MG PO (21:53)
[2024-11-10 23:30] VITALS: BP 103/53
[2024-11-10] MEDS: TYLENOL 650 MG PO (23:51)
[2024-11-11] MEDS: MAXIPIME 2000 MG IV ×2 (03:00→15:16)
[2024-11-11] MEDS: STERILE WATER FOR INJECTION 10 ML IV ×2 (03:01→15:15)
[2024-11-11 06:00] VITALS: BMI 20.7
[2024-11-11] MEDS: DUONEB 3 ML INH ×4 (07:24→19:50)
[2024-11-11] MEDS: ZOVIRAX 800 MG PO ×2 (08:28→20:00)
[2024-11-11] MEDS: NORVASC 5 MG PO (08:28)
[2024-11-11] MEDS: VFEND 200 MG PO ×2 (08:29→20:00)
[2024-11-11] MEDS: MUCINEX 600 MG PO ×2 (08:29→20:00)
[2024-11-11] MEDS: PACERONE 100 MG PO (08:29)
[2024-11-11] MEDS: LOPRESSOR 25 MG PO (08:29)
[2024-11-11] MEDS: ASPIR LOW (ENTERIC COATED) 81 MG PO (08:29)
[2024-11-11 08:35] LABS: Blood Urea Nitrogen 23 mg/dl (9-20); Calcium 8.8 mg/dl (8.4-10.2); Carbon Dioxide 22 mmol/L (22-30); Chloride 100 mmol/L (98-107); Estimated Creatinine Clearance 36 ml/min; Glucose 125 mg/dl (70-99); Potassium 3.6 mmol/L (3.5-5.1); Sodium 134 mmol/L (135-145); eGFR 53.84
[2024-11-11 08:53] LABS: Hematocrit 20.6 % (39.0-52.0); Hemoglobin 7.2 g/dL (13.0-18.0); Mean Corpuscular Hgb 36.4 pg (27.0-31.0); Mean Platelet Volume 10.1 fL (7.4-10.4); Platelet Count 50 10^3/uL (130-400); Red Blood Cell Count 1.98 10^6/uL (4.70-6.10); Red Cell Dist. Width 14.8 % (11.5-14.5); White Blood Cell Count 0.6 10^3/uL (4.8-10.8)
[2024-11-11 08:54] VITALS: BP 101/47
[2024-11-11 10:43] LABS: % Lymphocytes 45.5 % (20.5-51.1); % Monocytes 7.3 % (1.7-9.3); % Neutrophils 47.2 % (42.2-75.2); Absolute Lymphocytes 0.3 10^3/uL (1.2-3.4); Absolute Neutrophils 0.3 10^3/uL (1.4-6.5); Nucleated Red Blood Cells % 0 % (-)
[2024-11-11 10:58] VITALS: BP 98/45; PULSE 82; O2SAT 97
[2024-11-11 10:59] VITALS: BP 98/45; O2SAT 94
--- NOTE | 2024-11-11 11:06 | PTOTSP ---
pt currently demonstrates ability to complete simple ADLs, functional transfers, ambulation with supervision to no assistance. pt demonstrates no acute OT needs at this time, will sign off.
--- NOTE | 2024-11-11 14:15 | CM ---
Patient seen at bedside. Patient stated that he lives with his in a 2 story home. Patient has no DME at home. Patient has had VN in the distant past with [facility]. patient is not driving at this time. Patient PCP is Dr. Johnson and he uses the
[facility] [place]. Patient plan is for discharge home with no needs. CM will continue to follow for discharge planning needs.
Plan; home with no needs anticipated
--- NOTE | 2024-11-11 14:22 | CON.ONC ---
Documented by User: KEVIN Landeros 11/11/24 14:49
Impression
Impression
AML, last cycle hypomethylating agent completed October 29 and he received pegfilgrastim on November 02
Neutropenic fever
Suspected acute bronchitis
CAD with stents, PAF
Plan
Plan
Consider infectious disease consult for management of neutropenic fevers, follow cultures
Neutropenic precautions, last pegfilgrastim 11/02/2024 no role for additional GCSF at this time
Transfuse hemoglobin less than 7 or as needed for symptomatic anemia
Transfuse platelet count less than 20, less than 50 if bleeding
Continue viral and fungal prophylaxis
Check DIC panel
Hold Venclexta
Outpatient follow-up with Dr. Linder will be up arranged upon hospital recovery
Goals remain restorative, optimize performance status and nutrition while helped hospitalized
Patient History
History of Present Illness
79-year-old male known to Dr. Linder for management of AML, currently on decitabine and venetoclax every 6 weeks who presented with cough and fever. He reports that the onset of his cough was approximately 1 week ago and associated with thick milky
white phlegm and shortness of breath. He had a temperature of 101 Fahrenheit at home last night which prompted him to seek further evaluation in [place] emergency room. Admission labs notable for WBC 900, hemoglobin 8.7, hematocrit 25.7,
platelet count 60,000, BUN 20, creatinine 1.4, normal LFTs. COVID and flu are negative. Urinalysis notes pyuria, urine culture is negative. Chest x-ray showed no active cardiopulmonary disease. Blood cultures are pending. He has been admitted
and started on broad-spectrum antibiotics.
Clinically, he denies chest pain, palpitations, shortness of breath at rest, nausea, vomiting, diarrhea, constipation, abdominal pain. Denies overt bleeding.
Temperature 100.5 �F, no hypotension or hypoxia
Past-Medical/Surgical History
Past medical history
acute Myeloid Leukemia
Coronary Artery Disease s/p Stents
Paroxysmal Atrial Fibrillation
Essential Hypertension
Hyperlipidemia
CKD Stage IIIA
Psoriasis
BPH
Past Surgical History:
Right Femur Fracture Repair
coronary stents
skin cancer excisions
Social History
Tobacco: Former Smoker (Quit over 40 years ago), social ETOH. Retired. .
Patient Medication
�Medication �Instructions �Recorded �Confirmed �Last Taken �Type
rosuvastatin 10 mg tablet 10 mg PO QPM High cholesterol 11/22/20 11/10/24 11/08/24 History
acyclovir 800 mg tablet 800 mg PO BID Infection 02/08/22 11/10/24 11/08/24 History
aspirin 81 mg tablet,delayed 81 mg PO DAILY Blood clot 02/08/22 11/10/24 11/08/24 History
release prevention/tx
voriconazole 200 mg tablet 200 mg PO BID Infection 02/08/22 11/10/24 11/08/24 History
venetoclax 100 mg tablet 100 mg PO DAILY Cancer ##0 02/15/22 11/10/24 11/08/24 Rx
(Venclexta)
amlodipine 5 mg tablet 5 mg PO DAILY Blood Pressure 03/18/24 11/10/24 11/08/24 History
amiodarone 100 mg tablet 100 mg PO DAILY Arrhythmia 11/10/24 11/10/24 11/08/24 History
metoprolol tartrate 25 mg tablet 25 mg PO BID Blood Pressure 11/10/24 11/10/24 11/08/24 History
Active Medications
Generic Name Dose Route Start Last Admin
Trade Name Freq PRN Reason Stop Dose Admin
Acetaminophen 650 mg 11/10/24 20:54 11/10/24 23:51
Acetaminophen 325 Mg Tablet PO 12/08/24 20:53 650 mg
Q4HPRN PRN Administration
mild pain/ fever>100.5F
Acyclovir Sodium 800 mg 11/10/24 20:54 11/11/24 08:28
Acyclovir Sodium 800 Mg Tablet PO 11/20/24 20:53 800 mg
BID JULIO Administration
Albuterol/Ipratropium 3 ml 11/10/24 20:54
Ipratropium 0.5/Albuterol 3 Mg (3 Ml Ampul) INH
R Q4HPRN PRN
shortness of breath/wheeze
Protocol
Albuterol/Ipratropium 3 ml 11/10/24 20:54 11/11/24 11:08
Ipratropium 0.5/Albuterol 3 Mg (3 Ml Ampul) INH 3 ml
R QID JULIO Administration
Protocol
Amiodarone HCl 100 mg 11/11/24 08:00 11/11/24 08:29
Amiodarone 100 Mg Tablet PO 12/09/24 07:59 100 mg
DAILY JULOI Administration
Amlodipine Besylate 5 mg 11/11/24 08:00 11/11/24 08:28
Amlodipine 5 Mg Tablet PO 12/09/24 07:59 5 mg
DAILY JULIO Administration
Aspirin 81 mg 11/11/24 08:00 11/11/24 08:29
Aspirin 81 Mg (Enteric Coated) Tablet PO 12/09/24 07:59 81 mg
DAILY JULIO Administration
Benzonatate 200 mg 11/10/24 20:54
Benzonatate 100 Mg Capsule PO 12/08/24 20:53
TIDPRN PRN
cough
Cefepime HCl 2,000 mg 11/11/24 04:00 11/11/24 03:00
Cefepime Hcl 2,000 Mg/12.5 Ml Vial IV 2,000 mg
Q12H JULIO Administration
Guaifenesin 600 mg 11/10/24 20:54 11/11/24 08:29
Guaifenesin 600 Mg Extended Release Tablet PO 12/08/24 20:53 600 mg
Q12 JULIO Administration
Metoprolol Tartrate 25 mg 11/10/24 20:54 11/11/24 08:29
Metoprolol 25 Mg Regular Release Tablet PO 12/08/24 20:53 25 mg
BID JULIO Administration
Rosuvastatin Calcium 10 mg 11/10/24 20:54 11/10/24 21:52
Rosuvastatin (Crestor) 10 Mg Tablet PO 12/08/24 20:53 10 mg
QPM JULIO Administration
Sodium Chloride 0 flush 11/10/24 22:00
Sodium Chloride 0.9% (Flush) Syringe IV 12/08/24 21:59
PER PROTOCOL JULIO
Sterile Water 10 ml 11/11/24 04:00 11/11/24 03:01
Sterile Water For Injection 10 Ml Vial IV 12/09/24 03:59 10 ml
Q12H JULIO Administration
Voriconazole 200 mg 11/10/24 20:54 11/11/24 08:29
Voriconazole 200 Mg Tablet PO 11/20/24 20:53 200 mg
BID JULIO Administration
Review of Systems
-
Review of systems notable for HPI, otherwise negative
Physical Exam
-
HEENT: Moist Mucous Membranes; Negative Jaundice
Cardiology: Normal Sinus Rhythm
Pulmonary: Clear
GI: Soft
Extremities: Pulses Present
Neurology: Non Focal
Psych: Calm
Labs
Lab Results
WBC 0.6 10^3/uL (4.8-10.8) L* 11/11/24 07:29
RBC 1.98 10^6/uL (4.70-6.10) L 11/11/24 07:29
Hgb 7.2 g/dL (13.0-18.0) L 11/11/24 07:29
Hct 20.6 % (39.0-52.0) L* 11/11/24 07:29
MCV 104.0 fL (80.0-94.0) H 11/11/24 07:29
MCH 36.4 pg (27.0-31.0) H 11/11/24 07:29
MCHC 35.0 g/dL (33.0-37.0) 11/11/24:
RDW 14.8 % (11.5-14.5) H 11/11/24:
Plt Count 50 10^3/uL (130-400) L 11/11/24:
MPV 10.1 fL (7.4-10.4) 11/11/24:
Abs Immat Gran (auto) 0.0 10^3/uL (0-0.05) 11/11/24
Absolute Neuts (auto) 0.3 10^3/uL (1.4-6.5) L* 11/11/24
Absolute Lymphs (auto) 0.3 10^3/uL (1.2-3.4) L 11/11/24
Absolute Monos (auto) 0.0 10^3/uL (0.1-0.6) L 11/11/24
Absolute Eos (auto) 0.0 10^3/uL (0-0.7) 11/11/24:
Absolute Basos (auto) 0.0 10^3/uL (0-0.2) 11/11/24:
Immature Gran % 0.0 % (0-0.5) 11/11/24:
Neutrophils % 47.2 % (42.2-75.2) 11/11/24
Lymphocytes % 45.5 % (20.5-51.1) 11/11/24
Monocytes % 7.3 % (1.7-9.3) 11/11/24
Eosinophils % 0.0 % (0-6) 11/11/24
Basophils % 0.0 % (0-2) 11/11/24
Creatinine 1.3 mg/dL (0.7-1.3) 11/11/24
Vital Signs
Vital Signs
Temp Pulse Resp BP Pulse Ox
99.2 F 86 16 101/47 95
11/11/24 08:54 11/11/24 11:12 11/11/24 11:12 11/11/24 08:54 11/11/24 11:12

Documented by User: Maxwell Clark MD 11/11/24 14:54
Plan
Plan
Consider infectious disease consult for management of neutropenic fevers, follow cultures
Neutropenic precautions, last pegfilgrastim 11/02/2024 no role for additional GCSF at this time
Transfuse hemoglobin less than 7 or as needed for symptomatic anemia
Transfuse platelet count less than 20, less than 50 if bleeding
Continue viral and fungal prophylaxis
Check DIC panel
Hold Venclexta
Outpatient follow-up with Dr. Linder will be up arranged upon hospital recovery
Goals remain restorative, optimize performance status and nutrition while helped hospitalized
Hematology Addendum:
Patient seen and evaluated and agree w/ [employer] note and plan as outlined
-AML - tx w/ Dr. Linder - received GCSF 11/02/24
-pancytopenia - neutropenic fever
-antibiotics as per ID
-follow CBC and transfuse prn
Will continue to follow with you.
[2024-11-11 14:50] VITALS: BP 115/53
--- NOTE | 2024-11-11 14:59 | W.PN.HOSP.TC ---
Addendum entered and electronically signed by Eveline Núñez MD 11/11/24 16:59:
I saw and evaluated the patient independently. I reviewed the resident�s note and agree with findings and plan as documented by Dr. Velarde.
GENERAL: chronically ill appearing male, feels warm to touch in no apparent distress
HEENT: NC/AT--no O2 requirements
HEART: regular rate and rhythm, +S1, +S2
LUNGS : ronchi bilateral lung hahn
ABDOM: soft, nontender, nondistended, + bowel sounds
EXT: no cyanosis, clubbing, or edema
NEUROLOGIC: grossly intact
sepsis with Neutropenic fever--due to pneumonia--apprec heme--cont cefepime--would add vanco--consult ID--mo culture--Transfuse hemoglobin less than 7 or as needed for symptomatic anemia. Transfuse platelet count less than 20, less than 50 if
bleeding--Continue home acyclovir and voriconazole--Venclexta held
AML with Pancytopenia--(Anemia hemoglobin 7.2 today, platelets 50, ANC 0.5-->0.3)--apprec heme--s/p chemo 2 weeks ago--apprec heme/onc
Hyponatremia--134, stable
CAD--Hold aspirin with low platelets--Continue rosuvastatin
Paroxysmal [id number]--Continue metoprolol and amiodarone
Essential Hypertension--Continue amlodipine
CKD 3a--Creatinine at baseline, avoid nephrotoxic agents, monitor BMP
BPH--Bladder scan protocol if retention
DVT proph--SCDs
CODE STATUS--Full code
Original Note:
Today's Communication/Plan
-
Continue IV antibiotics, infectious disease consult, neutropenic precautions
Follow CBC
Assessment / Plan
Assessment / Plan
84-year-old male with history of AML on chemo, CAD status post PCI, hypertension, paroxysmal A-fib, CKD 3a, BPH who presents with neutropenic sepsis and pancytopenia
Neutropenic fever:
Sepsis
Secondary to pneumonia/acute bronchitis versus other source
-Leukocytosis 0.9 on arrival, ANC 0.5,
-Appreciate hem/oncology consult --> Transfuse hemoglobin less than 7 or as needed for symptomatic anemia. Transfuse platelet count less than 20, less than 50 if bleeding
-Continue home acyclovir and voriconazole
-Infectious disease consult
-Venclexta held
-Continue cefepime, will add vancomycin
Pancytopenia:
Anemia hemoglobin 8.7 on arrival, 7.2 today, platelets 60 --> 50, ANC 0.5-->0.3
-Appreciate heme-onc input
-Transfuse hemoglobin less than 7 or as needed for symptomatic anemia. Transfuse platelet count less than 20, less than 50 if bleeding
-To follow-up with Dr. Linder outpatient when stable
Hyponatremia:
134, stable
-monitor BMP
CAD:
-Hold aspirin with low platelets
-Continue rosuvastatin
Paroxysmal A-fib:
-Stable
-Continue metoprolol and amiodarone
Hypertension:
Continue amlodipine
CKD 3a:
-Creatinine at baseline, avoid nephrotoxic agents, monitor BMP
BPH:
-Bladder scan protocol if retention
DVT prophylaxis: SCDs
CODE STATUS: Full code
Anticipated Discharge: > 48 hours
Subjective/Interval History
-
Date of Service: November 11, 2024
Objective Data
-
Labs:
Laboratory Results
11/11/24
07:29
WBC 0.6 L*
Hgb 7.2 L
Hct 20.6 L*
Plt Count 50 L
Sodium 134 L
Potassium 3.6
Chloride 100
Carbon Dioxide 22
BUN 23 H
Creatinine 1.3
Glucose 125 H
Calcium 8.8
Vital Signs:
Vital Signs
Temp Pulse Resp BP Pulse Ox
99.2 F 86 16 101/47 95
11/11/24 08:54 11/11/24 11:12 11/11/24 11:12 11/11/24 08:54 11/11/24 11:12
I&O
11/10/24 11/11/24 11/12/24
06:59 06:59 06:59
Intake Total 240 / 240
Output Total 700 / 700
Balance -460 / -460
Review of Systems
-
History Source: Patient
Constitutional: Reports Fever
Respiratory: Reports Cough
Cardiac: Reports Chest Pain (right lower anterior chest)
Abdomen/GI: Reports Constipated; Denies Abdominal Pain, Nausea or Diarrhea
Physical Exam
-
General: No Apparent Distress
HEENT: Normocephalic, Atraumatic and Moist Mucous Membranes; Negative Pharyngeal Erythema (no exudates)
Respiratory: Rhonchi (scattered), Non Labored Respirations and Other (Cough)
Cardiac: Regular Rhythm and S1/S2; Negative Murmur, Rub or Calf Tenderness
GI: Soft, Nontender, Nondistended and Normal Bowel Sounds
Genito-urinary: No Costovertebral Tender
Musculoskeletal: No Clubbing, No Cyanosis and No Edema
Skin: Warm and Dry
Neuro: Awake and Alert
Psych: Calm
[2024-11-11] MEDS: TYLENOL 650 MG PO (15:16)
[2024-11-11 15:24] VITALS: BMI 20.7
--- NOTE | 2024-11-11 17:10 | CON.ID ---
Consultation
-
Date/Time Consultation Requested: November 11, 2024 1449
Date/Time Consultation Performed: November 11, 2024 1710
Requesting Provider: KEVIN Babb
Performing Provider: Dr. Nadia Becerra
Reason for Consultation: Neutropenic fever
Chief Complaint / Past History
Chief Complaint
Fever
History of Present Illness
84-year-old male with history of CAD, atrial fibrillation, CKD3, AML, on decitabine, venotoclax every 6 weeks last received October 29, pegfilgrastim on November 02, who presented to the hospital November 10 due to fever. His is at bedside who
helps with some of the history. Patient started coughing on Friday, November 06. Cough productive of phlegm. Denies rhinorrhea or sinus congestion. He then developed fever up to 101 on November 09. He therefore came to the ER. Temperature was
100.5. Absolute neutrophil count was 500. He was started on cefepime. Chest x-ray negative. Urine culture negative. Blood cultures negative to date. COVID-negative. Influenza negative. Per on Friday at [facility] he did drink the wine from
a cup shared by [facility] members. However the cough started the day before. He has sore throat today from all the coughing. Positive shortness of breath. no headaches. No nausea vomiting abdominal pain or diarrhea. No urinary symptoms. No rash.
Today he reports feeling little bit better. There is less phlegm production. He is up-to-date with his influenza and COVID-vaccine.
Past History
Additional Past Medical History:
AML, on decitabine, venotoclax every 6 weeks
Coronary Artery Disease s/p Stents
Paroxysmal Atrial Fibrillation
Essential Hypertension
Hyperlipidemia
CKD Stage IIIA
Psoriasis
BPH
Skin melanoma excision
Right Femur Fracture Repair
Allergy History:
abciximab [From Reopro] Allergy (Verified 11/10/24 12:23)
THROMBOCYTOPENIA
Medications Reviewed: Yes
Current Antibiotics:
Cefepime 2 g IV every 12 hours
Prophylactic voriconazole 200 mg twice daily
Prophylactic acyclovir 800 mg twice daily
Social History
Tobacco: Former Smoker
Alcohol: Occasional
Drug: None
Personal:
Review of Systems
Review of Systems
General: Fever and Chills; Negative Change in Appetite
HEENT: Negative Stiff Neck or Sinus Problems
Cardiovascular: Negative Chest Pain
Respiratory: Dyspnea and Cough
Gasteroenterology: Negative Nausea, Vomiting or Diarrhea
Genital / Urological: Negative Dysuria, Hematuria or Flank Pain
Endocrine: Weakness
Skin / Hair / Nails: Negative Rash
Neurological: Negative Dizziness
All systems: All other systems were reviewed and were negative
Vital Signs
Temp Pulse Resp BP Pulse Ox
100.3 F 84 18 115/53 95
11/11/24 14:50 11/11/24 15:31 11/11/24 15:31 11/11/24 14:50 11/11/24 15:31
Selected Entries
11/10/24
23:30
Temp 100.5 F H
Physical Exam
Physical Exam
Constitutional: No Acute Distress and Comfortable
Eyes: No Conjunctival Hemorrhage and Sclera Anicteric
Pharynx: Benign
Oral: No Thrush and No Ulcers
Cardiovascular: Regular Rate and S1/S2
Pulmonary: Clear
Gastrointestinal: Soft, Non Tender, Non Distended and Normal Bowel Sounds
Genito-Urinary: Negative CVA Tenderness
Extremities: Negative Edema
Musculoskeletal: Negative Joint Swelling, Joint Effusion or Spinal Tenderness
Neurological: AO x 3
Lines: Port (RCW, not accessed, no induration/erythema)
Lab / Diagnostic Study Results
11/11/24 07:29
11/11/24 07:29
Abs Immat Gran (auto) 0.0 10^3/uL (0-0.05) 11/11/24 07:29
Absolute Neuts (auto) 0.3 10^3/uL (1.4-6.5) L* 11/11/24 07:29
Absolute Lymphs (auto) 0.3 10^3/uL (1.2-3.4) L 11/11/24 07:29
Absolute Monos (auto) 0.0 10^3/uL (0.1-0.6) L 11/11/24 07:29
Absolute Basos (auto) 0.0 10^3/uL (0-0.2) 11/11/24 07:29
Total Counted 100 11/10/24 12:27
Immature Gran % 0.0 % (0-0.5) 11/11/24 07:29
Neutrophils % 47.2 % (42.2-75.2) 11/11/24 07:
Lymphocytes % 45.5 % (20.5-51.1) 11/11/24 07:
Monocytes % 7.3 % (1.7-9.3) 11/11/24 07:29
Eosinophils % 0.0 % (0-6) 11/11/24 07:
Basophils % 0.0 % (0-2) 11/11/24 07:29
Abs Neuts (Manual) 0.5 10^3/uL (1.4-6.5) L* 11/10/24 12:27
Segmented Neutrophils 59 % (42-75) 11/10/24 12:27
Band Neutrophils 0 % (0-3) 11/10/24 12:27
Lymphocytes (Manual) 33 % (20-51) 11/10/24 12:27
Lactic Acid 0.8 mmol/L (0.7-2.0) 11/10/24 13:40
Ur Squamous Epith Cells 0-2 /LPF (Few) 11/10/24 19:15
Microbiology Results
Micro:
11/10/24 13:40 Blood Culture - Preliminary
Blood/Venous No Growth in 24 hours- Final report to follow
11/10/24 13:40 Blood Culture - Preliminary
Blood/Venous No Growth in 24 hours- Final report to follow
11/10/24 19:15 Urine Culture - Final
Urine NO GROWTH
11/10/24 12:27 Influenza Types A & B (BRANDON) - Final
Nasal Swab Negative for Influenza A & B, NAAT
Negative results must be combined with clinical observations
and patient history.
Nucleic Acid Amplification test (NAAT)performed on the
[employer] platform.
No evidence of active cardiopulmonary disease.
Assessment / Plan
#AML, on decitabine, venotoclax every 6 weeks last received October 29, pegfilgrastim on November 02
# Neutropenic fever
# Cough productive of phlegm
- COVID/Flu neg
- CXR neg
-Ucx neg
-Bcx's x 2 neg to date
-Continue with cefepime (d2)
- Continue prophylactic acyclovir and voriconazole.
- Follow temps.
- Await for bone marrow recovery.
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
AML, on decitabine, venotoclax every 6 weeks
Coronary Artery Disease s/p Stents
Paroxysmal Atrial Fibrillation
Essential Hypertension
Hyperlipidemia
CKD Stage IIIA
Psoriasis
BPH
Skin melanoma excision
Right Femur Fracture Repair
[2024-11-11] MEDS: CRESTOR 10 MG PO (17:35)
[2024-11-11] MEDS: LOPRESSOR PO (20:04)
[2024-11-11 20:09] VITALS: BP 105/47
[2024-11-11 23:00] VITALS: BP 98/49
[2024-11-12] VITALS (8 sets, daily range): BP systolic 98–143; BP diastolic 48–68; BMI 20.8
[2024-11-12] MEDS: MAXIPIME IV (03:53)
[2024-11-12] MEDS: STERILE WATER FOR INJECTION IV (03:53)
[2024-11-12] MEDS: STERILE WATER FOR INJECTION 10 ML IV ×2 (05:19→15:46)
[2024-11-12] MEDS: MAXIPIME 2000 MG IV ×2 (05:19→15:45)
[2024-11-12] MEDS: DUONEB 3 ML INH ×4 (07:34→19:21)
[2024-11-12] MEDS: LOPRESSOR 25 MG PO (08:09)
[2024-11-12] MEDS: NORVASC 5 MG PO (08:09)
[2024-11-12] MEDS: MUCINEX 600 MG PO ×2 (08:09→20:22)
[2024-11-12] MEDS: ASPIR LOW (ENTERIC COATED) 81 MG PO (08:09)
[2024-11-12] MEDS: PACERONE 100 MG PO (08:10)
[2024-11-12] MEDS: VFEND 200 MG PO ×2 (08:10→20:22)
[2024-11-12] MEDS: ZOVIRAX 800 MG PO ×2 (08:10→20:22)
[2024-11-12] MEDS: ANESTHETIC LOZENGE 1 LOZENGE PO ×2 (08:18→20:21)
[2024-11-12] MEDS: TESSALON PERLES 200 MG PO ×3 (08:18→20:21)
[2024-11-12 08:36] LABS: Hematocrit 20.3 % (39.0-52.0); Hemoglobin 6.9 g/dL (13.0-18.0); Mean Corpuscular Hgb 35.4 pg (27.0-31.0); Mean Corpuscular Volume 104.1 fL (80.0-94.0); Mean Platelet Volume 11.3 fL (7.4-10.4); Platelet Count 47 10^3/uL (130-400); Red Blood Cell Count 1.95 10^6/uL (4.70-6.10); Red Cell Dist. Width 14.6 % (11.5-14.5); White Blood Cell Count 0.6 10^3/uL (4.8-10.8)
--- NOTE | 2024-11-12 08:46 | PN.CDI ---
CDI
- -
CDI:
Physician Documentation Request
Admit Date: 11/10/24 17:07
Dear Doctor Niya/ Resident,
Please review the following and provide your response in the progress notes.
Clinical Indicators:
Pt admitted with Sepsis 2/2 Pneumonia /AML on chemo last chemo Oct 29
Documented per H&P, ' Acute Myeloid Leukemia Last chemotherapy ~ 2 weeks ago Continue acyclovir and voriconazole for prophylaxis-Hold Venclexta...'
Progress note 11/11, ' AML with Pancytopenia--(Anemia hemoglobin 7.2 today, platelets 50, ANC 0.5-->0.3)--apprec heme--s/p chemo 2 weeks ago.'
Please provide the suspected etiology of the documented Pancytopenia :
Pancytopenia due to AML/Chemotherapy
Pancytopenia due to AML/ Drug induced pancytopenia due to Venclexta
Other ( please specify)
Use of terms such as suspected, likely, concern for, or probable (associated with a specific diagnosis that is being evaluated, monitored, or treated as if it exists) are acceptable and can be coded in the inpatient setting, when documented at the
time of discharge.
Thank you,
Germaine Gilmore RN
CDI Specialist
[facility]
Please use your independent medical judgment in providing your response.
--- NOTE | 2024-11-12 08:54 | PN.CDI ---
CDI
- -
CDI:
Physician Documentation Request
Admit Date: 11/10/24 17:07
Dear Doctor Niya /Resident,
Please review the following and provide your response in the progress notes.
Clinical Indicators:
Pt admitted with Sepsis 2/2 Pneumonia /AML on chemo last chemo Oct 29
Documented per Nutrition consult 11/11, ' CBW 136 lbs 4 oz BMI 20.7 normal (11/11). As per nutrition screening at admission pt reported wt loss but unsure of how much and decreased intakes due to poor appetite. External medical summary lists wt as
147 lbs on 07/26/24-7.5% wt loss within 4 months is not significant.As per ASPEN/AND pt meets criteria for mild protein calorie malnutrition in the context of acute illness (PNA) with <50% of estimated energy requirements for >or= 5 days and NFPE
findings of mild temporal and thigh muscle wasting.RD to monitor intakes and wt during hospitalization. Follow up planned per level of care.'
Based on the above information and your assessment, which of the following most accurately represents the patient's nutritional status?
Mild protein calorie malnutrition
Other (please specify)
[place] Criteria ([employer] Hospitalist 2017)
2 or more criteria must be present for either
non severe or severe malnutrition
Note that the criteria differs related to the
presence of an acute or chronic illness
Acute Illness Chronic Illness
Energy Intake Non Severe: <75% for >7 days Non Severe: <75% for >1 month
Severe: <50% for >5 days Severe: <75% for >1 month
Weight Loss Non Severe: 1-2% over 1 week Non Severe: 5% over 1 month
5% over 1 month 7.5% over 3 months
7.5% over 3 months 10% over 6 months
1 year N/A 20% over 1 year
Severe: >2% over 1 week Severe: >5% over 1 month
>5% over 1 month >7.5% over 3 months
>7.5% over 3 months >10% over 6 months
1 year N/A >20% over 1 year
Body Fat Non Severe: Mild Decrease Non Severe: Mild Loss
Severe: Moderate Decrease Severe: Severe Loss
Muscle Mass Non Severe: Mild Decrease Non Severe: Mild Loss
Severe: Moderate Decrease Severe: Severe Loss
Fluid Accumulation Non Severe: Mild Accumulation Non Severe: Mild Accumulation
Severe: Moderate to severe Severe: Moderate to severe
accumulation accumulation
Reduced Roll Bucker Strength Non Severe: N/A Non Severe: N/A
Severe: Measurably reduced Severe: Measurably reduced
Use of terms such as suspected, likely, concern for, or probable (associated with a specific diagnosis that is being evaluated, monitored, or treated as if it exists) are acceptable and can be coded in the inpatient setting, when documented at the
time of discharge.
Thank you,
Germaine Gilmore RN
CDI Specialist
[facility]
Please use your independent medical judgment in providing your response.
[2024-11-12 08:58] LABS: Blood Urea Nitrogen 20 mg/dl (9-20); Calcium 8.9 mg/dl (8.4-10.2); Carbon Dioxide 21 mmol/L (22-30); Chloride 100 mmol/L (98-107); Estimated Creatinine Clearance 40 ml/min; Glucose 134 mg/dl (70-99); Potassium 3.7 mmol/L (3.5-5.1); Sodium 134 mmol/L (135-145); eGFR 59.26
[2024-11-12 10:33] LABS: % Immature Granulocytes 7.8 % (0-0.5); % Lymphocytes 67.2 % (20.5-51.1); % Monocytes 6.3 % (1.7-9.3); % Neutrophils 18.7 % (42.2-75.2); Absolute Immature Granulocytes 0.1 10^3/uL (0-0.05); Absolute Lymphocytes 0.4 10^3/uL (1.2-3.4); Absolute Neutrophils 0.1 10^3/uL (1.4-6.5); Nucleated Red Blood Cells % 0 % (-)
--- NOTE | 2024-11-12 11:39 | W.PN.ID1 ---
Date of Service
Date of Service: November 12, 2024
Today's Communication
-Continue with cefepime (d3)
- Continue prophylactic acyclovir and voriconazole.
- Follow temps.
- Await for bone marrow recovery.
Assessment / Plan
#AML, on decitabine, venotoclax every 6 weeks last received October 29, pegfilgrastim on November 02
# Neutropenic fever
# Cough productive of phlegm
- COVID/Flu neg
- CXR neg
-Ucx neg
-Bcx's x 2 neg to date
-Continue with cefepime (d3)
- Continue prophylactic acyclovir and voriconazole.
- Follow temps.
- Await for bone marrow recovery.
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
AML, on decitabine, venotoclax every 6 weeks
Coronary Artery Disease s/p Stents
Paroxysmal Atrial Fibrillation
Essential Hypertension
Hyperlipidemia
CKD Stage IIIA
Psoriasis
BPH
Skin melanoma excision
Right Femur Fracture Repair
Chief Complaint
-: Other (neutropenic fever)
Subjective / Review of Systems
afebrile
bp stable
Vital Signs / Physical Exam
Vital Signs
Vital Signs
Temp Pulse Resp BP Pulse Ox
98.3 F 80 16 123/52 97
11/12/24 07:30 11/12/24 11:23 11/12/24 11:23 11/12/24 07:30 11/12/24 08:10
Physical Exam
Constitutional: No Acute Distress and Chronically Ill
Cardiovascular: Regular Rate
Pulmonary: Symmetric and Non Labored
Gastrointestinal: Non Distended
Skin: Dry; Negative Rash or Jaundice
Neurological: Awake
Psychological: Calm
Objective Data
Lab Data
Lab Results
11/12/24 08:10
11/12/24 08:10
Estimated Creat Clear 40 ml/min 11/12/24 08:10
Lactic Acid 0.8 mmol/L (0.7-2.0) 11/10/24 13:40
Total Bilirubin 0.9 mg/dl (0.2-1.3) 11/10/24 12:27
AST 21 U/L (17-59) 11/10/24 12:27
ALT 14 U/L (0-50) 11/10/24 12:27
Alkaline Phosphatase 128 U/L (38-126) H 11/10/24 12:27
Most recent labs reviewed.
Micro Results:
11/10/24 13:40 Blood Culture - Preliminary
Blood/Venous No Growth in 24 hours- Final report to follow
11/10/24 13:40 Blood Culture - Preliminary
Blood/Venous No Growth in 24 hours- Final report to follow
11/10/24 19:15 Urine Culture - Final
Urine NO GROWTH
11/10/24 12:27 Influenza Types A & B (BRANDON) - Final
Nasal Swab Negative for Influenza A & B, NAAT
Negative results must be combined with clinical observations
and patient history.
Nucleic Acid Amplification test (NAAT)performed on the
[employer] platform.
No evidence of active cardiopulmonary disease.
--- NOTE | 2024-11-12 12:08 | W.PN.ONC2 ---
Today's Communication / Plan
-
.
Impression
Impression
AML, last cycle hypomethylating agent completed October 29 and he received pegfilgrastim on November 02
acute thrombocytopenia and acute on chronic anemia
Neutropenic fever
Suspected acute bronchitis
CAD with stents, PAF
Plan
Plan
appreciate infectious disease management of neutropenic fevers, follow cultures
Neutropenic precautions, last pegfilgrastim 11/02/2024. ANC 100 so Will start GCSF 480mcg daily until ANC >1500
Transfuse hemoglobin less than 7 or as needed for symptomatic anemia. 1U prbc today, no specialty products needed
Transfuse platelet count less than 20, less than 50 if bleeding
Continue viral and fungal prophylaxis
Check DIC panel, check LDH, uric acid, retic, B12, folate, copper
check heme stool, monitor for bleeding
Hold Venclexta
Outpatient follow-up with Dr. Linder will be up arranged upon hospital discharge. We discussed consideration for OP bone marrow biopsy with worsening cytopenias upon discharge, he is reluctant
Goals remain restorative, optimize performance status and nutrition while hospitalized
Will continue to follow with you.
Subjective/Objective
Subjective
cough, SOB, weakness. No conversational dyspnea in chair
denies overt bleeding
afebrile, no hypotension, no hypoxia
Vital Signs:
Vital Signs
Temp Pulse Resp BP Pulse Ox
98.3 F 80 16 123/52 97
11/12/24 07:30 11/12/24 11:23 11/12/24 11:23 11/12/24 07:30 11/12/24 08:10
Lab Results:
Laboratory Data
WBC 0.6 10^3/uL (4.8-10.8) L* 11/12/24 08:10
Hgb 6.9 g/dL (13.0-18.0) L* 11/12/24 08:10
Plt Count 47 10^3/uL (130-400) L 11/12/24 08:10
eGFR 59.26 11/12/24 08:10
Physical Exam
HEENT: Moist Mucous Membranes and Other (chronic skin lesion right cheek by ear); No Jaundice
Cardiology: Normal Sinus Rhythm
Pulmonary: Clear
GI: Soft
Extremities: Pulses Present; No Edema
Neuro: Non Focal
Orders
Orders
Orders From Last 24 Hours
11/11/24 14:49
Consult Infectious Disease [INFECTIOUS DISEASE CONSULT] Routine
11/12/24 09:38
Blood Bank Products [* Blood Bank Products] Routine
11/12/24 22:00
Tbo-Filgrastim [Granix] 480 mcg SC HS
[2024-11-12 12:45] LABS: INR 1.06; PT 14.2 Sec (11.4-14.6)
[2024-11-12 12:46] LABS: APTT 45.4 Sec (23.4-35.0); Fibrinogen 640 MG/DL (199-459)
[2024-11-12 12:48] LABS: D-Dimer 1.31 ug/mlFEU (0.00-0.50)
[2024-11-12 13:53] LABS: LDH 161 U/L (120-246); Uric Acid 2.4 mg/dl (3.5-8.5)
[2024-11-12 14:00] LABS: Iron 29 ug/dl (49-181)
[2024-11-12 14:09] LABS: Percent Saturation 11 % (20-50); Total Iron Binding Capacity 248 ug/dl (261-462)
--- NOTE | 2024-11-12 14:24 | W.PN.HOSP.TC ---
Addendum entered and electronically signed by Rosie Velarde MD, Resident 11/12/24 17:56:
Mild protein calorie malnutrition:
-appreciate dietitian recs/input
Addendum entered and electronically signed by Eveline Núñez MD 11/12/24 17:45:
I saw and evaluated the patient independently. I reviewed the resident�s note and agree with findings and plan as documented by Dr. Velarde.
GENERAL: chronically ill appearing male, feels warm to touch in no apparent distress
HEENT: NC/AT--no O2 requirements
HEART: regular rate and rhythm, +S1, +S2
LUNGS : ronchi bilateral lung hahn
ABDOM: soft, nontender, nondistended, + bowel sounds
EXT: no cyanosis, clubbing, or edema
NEUROLOGIC: grossly intact
sepsis with Neutropenic fever--due to pneumonia--apprec heme--cont cefepime---apprec ID--mo culture--Transfuse hemoglobin less than 7 or as needed for symptomatic anemia. Transfuse platelet count less than 20, less than 50 if bleeding--Continue
home acyclovir and voriconazole--Venclexta held
AML with Pancytopenia from AML/chemo, cannot rule out effect from Venclexta--(Anemia hemoglobin 7.2 today, platelets 50, ANC 0.5-->0.3)--apprec heme--s/p chemo 2 weeks ago--apprec heme/onc--Start GCSF 480mcg daily until ANC>1500--transfuse 1 unit
pRBC
Hyponatremia--134, stable
CAD--Hold aspirin with low platelets--Continue rosuvastatin
Paroxysmal A-wpt-Sywapp--Continue metoprolol and amiodarone
Essential Hypertension--Continue amlodipine
CKD 3a--Creatinine at baseline, avoid nephrotoxic agents, monitor BMP
BPH--Bladder scan protocol if retention
DVT proph--SCDs
CODE STATUS--Full code
Original Note:
Today's Communication/Plan
-
GCSF, I unit PRBC, continue abx, follow CBC
Assessment / Plan
Assessment / Plan
84-year-old male with history of AML on chemo, CAD status post PCI, hypertension, paroxysmal A-fib, CKD 3a, BPH who presents with neutropenic sepsis and pancytopenia
Neutropenic fever:
Sepsis
Secondary to pneumonia/acute bronchitis versus other source
-Leukocytosis 0.9, ANC 500 on arrival. ANC 100
-Appreciate hem/oncology recs: Start GCSF 480mcg daily until ANC>1500
-Continue ppx acyclovir and voriconazole
-Appreciate Infectious disease recs
-Blood and urine cultures negative
-Venclexta held
-LDH normal, unlikely hemolytic process. Retic count pending. Check DIC labs
-Continue cefepime (day3)
-Antitussives, incentive akila
Pancytopenia:
Anemia hemoglobin 8.7 on arrival, 7.2 today, platelets 60 --> 47, ANC 0.5-->0.1
-Appreciate heme-onc input
-Hgb 6.9, will transfuse I unit PRBC, follow H and H
-To follow-up with Dr. Linder outpatient when stable
Hyponatremia:
134, stable
-monitor BMP
CAD:
-Hold aspirin with low platelets
-Continue rosuvastatin
Paroxysmal A-fib:
-Stable
-Continue metoprolol and amiodarone
Hypertension:
Continue amlodipine
CKD 3a:
-Creatinine at baseline, avoid nephrotoxic agents, monitor BMP
BPH:
-Bladder scan protocol if retention
DVT prophylaxis: SCDs
CODE STATUS: Full code
Anticipated Discharge: > 48 hours
Subjective/Interval History
-
Date of Service: November 12, 2024
Pt states his cough is better
Objective Data
-
Labs:
Laboratory Results
11/12/24 11/12/24
08:10 12:18
WBC 0.6 L*
Hgb 6.9 L*
Hct 20.3 L*
Plt Count 47 L
PT 14.2
INR 1.06
APTT 45.4 H
Sodium 134 L
Potassium 3.7
Chloride 100
Carbon Dioxide 21 L
BUN 20
Creatinine 1.2
Glucose 134 H
Calcium 8.9
Vital Signs:
Vital Signs
Temp Pulse Resp BP Pulse Ox
97.8 F 93 14 120/65 97
11/12/24 13:29 11/12/24 13:29 11/12/24 13:29 11/12/24 13:29 11/12/24 13:29
I&O
11/11/24 11/12/24 11/13/24
06:59 06:59 06:59
Intake Total 240 / 240 960 / 960 0 / 0
Output Total 700 / 700 410 / 410
Balance -460 / -460 550 / 550 0 / 0
Review of Systems
-
History Source: Patient
Constitutional: Denies Fever
Respiratory: Reports Cough; Denies Trouble Breathing
Cardiac: Denies Chest Pain
Abdomen/GI: Denies Abdominal Pain, Nausea, Vomiting or Bloody Stools
Genitourinary: Denies Dysuria or Bleeding
Hematologic / Lymphatic: Denies Bleeding
Physical Exam
-
General: No Apparent Distress
HEENT: Normocephalic
Respiratory: Decreased Breath Sounds (Right lower lobe) and Other (cough. ); Negative Wheezes, Rales, Rhonchi, Crackles or Non Labored Respirations
Cardiac: Regular Rhythm and S1/S2; Negative Murmur, Rub or Calf Tenderness
GI: Soft, Nontender, Nondistended and Normal Bowel Sounds
Genito-urinary: No Costovertebral Tender
Musculoskeletal: No Clubbing, No Cyanosis and No Edema
Skin: Warm and Dry
Neuro: Awake, Alert and Oriented
Psych: Calm
[2024-11-12 15:37] LABS: Reticulocyte Count 1.2 % (0.4-2.8)
[2024-11-12] MEDS: CRESTOR 10 MG PO (15:46)
[2024-11-12] MEDS: LOPRESSOR PO (20:21)
[2024-11-12] MEDS: GRANIX 480 MCG SC (22:53)
[2024-11-13] MEDS: STERILE WATER FOR INJECTION 10 ML IV ×2 (04:29→15:49)
[2024-11-13] MEDS: MAXIPIME 2000 MG IV ×2 (04:29→15:48)
[2024-11-13] MEDS: TESSALON PERLES 200 MG PO (04:29)
[2024-11-13 06:00] VITALS: BMI 20.7
--- NOTE | 2024-11-13 07:03 | W.PN.ONC2 ---
Today's Communication / Plan
-
No agrees to outpt bone marrow.
Impression
Impression
AML, last cycle hypomethylating agent completed October 29 and he received pegfilgrastim on November 02
acute thrombocytopenia and acute on chronic anemia
Neutropenic fever
Suspected acute bronchitis
CAD with stents, PAF
Plan
Plan
appreciate infectious disease management of neutropenic fevers, follow cultures
Neutropenic precautions, last pegfilgrastim 11/02/2024. ANC 100 so started GCSF 480mcg 11/12 daily until ANC >1500
Transfuse hemoglobin less than 7 or as needed for symptomatic anemia. 1U prbc 11/12, no specialty products needed
Transfuse platelet count less than 20, less than 50 if bleeding
Continue viral and fungal prophylaxis
Hold Venclexta
Agrees to outpt marrow.
Subjective/Objective
Chief Complaint
ACS Heme Onc
Subjective
No c/o. Feels better s/p PRBC transfusion
Vital Signs:
Vital Signs
Temp Pulse Resp BP Pulse Ox
98.2 F 98 16 143/68 97
11/12/24 23:15 11/12/24 23:15 11/12/24 23:15 11/12/24 23:15 11/12/24 23:15
Lab Results:
Laboratory Data
WBC 0.6 10^3/uL (4.8-10.8) L* 11/12/24 08:10
Hgb 6.9 g/dL (13.0-18.0) L* 11/12/24 08:10
Plt Count 47 10^3/uL (130-400) L 11/12/24 08:10
PT 14.2 Sec (11.4-14.6) 11/12/24 12:18
INR 1.06 11/12/24 12:18
APTT 45.4 Sec (23.4-35.0) H 11/12/24 12:18
eGFR 59.26 11/12/24 08:10
Physical Exam
Cardiology: S1 and S2
Pulmonary: Clear
GI: Soft
[2024-11-13] MEDS: DUONEB 3 ML INH ×4 (07:25→19:53)
[2024-11-13 07:30] VITALS: BP 131/61
[2024-11-13] MEDS: ASPIR LOW (ENTERIC COATED) PO (08:24)
[2024-11-13] MEDS: NORVASC 5 MG PO (08:25)
[2024-11-13] MEDS: MUCINEX 600 MG PO ×2 (08:26→20:49)
[2024-11-13] MEDS: ZOVIRAX 800 MG PO ×2 (08:26→20:49)
[2024-11-13] MEDS: PACERONE 100 MG PO (08:26)
[2024-11-13] MEDS: VFEND 200 MG PO ×2 (08:26→20:49)
[2024-11-13] MEDS: LOPRESSOR 25 MG PO ×2 (08:26→20:49)
[2024-11-13 08:36] LABS: Hematocrit 23.7 % (39.0-52.0); Hemoglobin 8.2 g/dL (13.0-18.0); Mean Corp Hgb Conc. 34.6 g/dL (33.0-37.0); Mean Corpuscular Volume 98.3 fL (80.0-94.0); Mean Platelet Volume 10.4 fL (7.4-10.4); Platelet Count 58 10^3/uL (130-400); Red Blood Cell Count 2.41 10^6/uL (4.70-6.10); Red Cell Dist. Width 17.4 % (11.5-14.5); White Blood Cell Count 0.6 10^3/uL (4.8-10.8)
[2024-11-13 09:22] LABS: Blood Urea Nitrogen 22 mg/dl (9-20); Calcium 9.1 mg/dl (8.4-10.2); Carbon Dioxide 21 mmol/L (22-30); Chloride 102 mmol/L (98-107); Estimated Creatinine Clearance 43 ml/min; Glucose 137 mg/dl (70-99); Potassium 3.8 mmol/L (3.5-5.1); Sodium 135 mmol/L (135-145); eGFR > 60.00
[2024-11-13 10:08] LABS: % Eosinophils 1.6 % (0-6); % Immature Granulocytes 1.6 % (0-0.5); % Lymphocytes 54.7 % (20.5-51.1); % Monocytes 4.7 % (1.7-9.3); % Neutrophils 37.4 % (42.2-75.2); Absolute Lymphocytes 0.4 10^3/uL (1.2-3.4); Absolute Neutrophils 0.2 10^3/uL (1.4-6.5); Nucleated Red Blood Cells % 0 % (-)
[2024-11-13 10:12] LABS: Vitamin B12 921 pg/ml (239-931)
--- NOTE | 2024-11-13 13:59 | W.PN.HOSP.TC ---
Today's Communication/Plan
-
cont GCSF
follow counts
cont ABX for now
apprec all consultants
Assessment / Plan
Assessment / Plan
pt is an 84 year old male
sepsis with Neutropenic fever--due to pneumonia--apprec heme--cont cefepime, consider transition to oral but pt neutropenic---apprec ID--cultures negative--Transfuse hemoglobin less than 7 or as needed for symptomatic anemia. Transfuse platelet
count less than 20, less than 50 if bleeding--Continue home acyclovir and voriconazole--Venclexta held
AML with Pancytopenia from AML/chemo, cannot rule out effect from Venclexta--(Anemia hemoglobin 7.2 today, platelets 50, ANC 0.5-->0.3)--apprec heme--s/p chemo 2 weeks ago--apprec heme/onc--GCSF 480mcg daily until ANC>1500--s/p 1 unit pRBC
Hyponatremia--134, stable
CAD--Hold aspirin with low platelets--Continue rosuvastatin
Paroxysmal H-[id number]--Continue metoprolol and amiodarone
Essential Hypertension--Continue amlodipine
CKD 3a--Creatinine at baseline, avoid nephrotoxic agents, monitor BMP
BPH--Bladder scan protocol if retention
mild protein calorie malnutrition--apprec dietary input
DVT proph--SCDs
CODE STATUS--Full code
Anticipated Discharge: > 48 hours
Subjective/Interval History
-
Date of Service: November 13, 2024
pt without c/o
Objective Data
-
Labs:
Laboratory Results
11/13/24
08:06
WBC 0.6 L*
Hgb 8.2 L
Hct 23.7 L
Plt Count 58 L D
Sodium 135
Potassium 3.8
Chloride 102
Carbon Dioxide 21 L
BUN 22 H
Creatinine 1.1
Glucose 137 H
Calcium 9.1
Vital Signs:
max temp for 24 hours
11/12/24
15:51
Temp 99.0 F
Vital Signs
Temp Pulse Resp BP Pulse Ox
97.9 F 80 16 131/61 98
11/13/24 07:30 11/13/24 11:26 11/13/24 11:26 11/13/24 08:25 11/13/24 07:30
I&O
11/12/24 11/13/24 11/14/24
06:59 06:59 06:59
Intake Total 960 / 960 2049
Output Total 410 / 410
Balance 550 / 550 2049
Review of Systems
-
All other systems: Reviewed and negative
Physical Exam
-
General: Appears Chronically Ill
HEENT: Normocephalic and Atraumatic
Respiratory: Negative Rhonchi (raspy breath sounds throughout)
Cardiac: Regular Rhythm and S1/S2
GI: Soft, Nontender, Nondistended and Normal Bowel Sounds
Musculoskeletal: No Clubbing, No Cyanosis and No Edema
Neuro: Awake and Alert
--- NOTE | 2024-11-13 14:41 | W.PN.ID1 ---
Date of Service
Date of Service: November 13, 2024
Today's Communication
Continue cefepime.
Assessment / Plan
#AML, on decitabine, venotoclax every 6 weeks last received October 29, pegfilgrastim on November 02
# Neutropenic fever
# Cough; productive of phlegm
- COVID/Flu neg
- CXR neg
- Ucx neg
- Bcx's x 2 neg to date
- ANC ~200
--> Continue with cefepime (d#4)
- Continue prophylactic acyclovir and voriconazole.
- Follow temps.
- Await for bone marrow recovery.
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
AML, on decitabine, venotoclax every 6 weeks
Coronary Artery Disease s/p Stents
Paroxysmal Atrial Fibrillation
Essential Hypertension
Hyperlipidemia
CKD Stage IIIA
Psoriasis
BPH
Skin melanoma excision
Right Femur Fracture Repair
Chief Complaint
-: Other (neutropenic fever)
Subjective / Review of Systems
Review of Systems: No Fever, No Chills, Cough and Sputum Production (Scant)
Vital Signs / Physical Exam
Vital Signs
Vital Signs
Temp Pulse Resp BP Pulse Ox
97.9 F 80 16 131/61 98
11/13/24 07:30 11/13/24 11:26 11/13/24 11:26 11/13/24 08:25 11/13/24 07:30
Physical Exam
Constitutional: No Acute Distress, Comfortable, Chronically Ill and Non-toxic
Eyes: Sclera Anicteric
Cardiovascular: Regular Rate and S1/S2; Negative S3/S4
Pulmonary: Symmetric and Non Labored; Negative Wheezes or Rales
Gastrointestinal: Soft, Non Tender and Non Distended
Skin: Dry; Negative Rash or Jaundice
Neurological: Awake
Psychological: Calm
Objective Data
Lab Data
Lab Results
11/13/24 08:06
11/13/24 08:06
PT 14.2 Sec (11.4-14.6) 11/12/24 12:18
INR 1.06 11/12/24 12:18
APTT 45.4 Sec (23.4-35.0) H 11/12/24 12:18
Estimated Creat Clear 43 ml/min 11/13/24 08:06
Lactic Acid 0.8 mmol/L (0.7-2.0) 11/10/24 13:40
Total Bilirubin 0.9 mg/dl (0.2-1.3) 11/10/24 12:27
AST 21 U/L (17-59) 11/10/24 12:27
ALT 14 U/L (0-50) 11/10/24 12:27
Alkaline Phosphatase 128 U/L (38-126) H 11/10/24 12:27
Most recent labs reviewed.
Micro Results:
11/10/24 13:40 Blood Culture - Preliminary
Blood/Venous No Growth in 72 hours- Final report to follow
11/10/24 13:40 Blood Culture - Preliminary
Blood/Venous No Growth in 72 hours- Final report to follow
11/13/24 06:20 Respiratory Culture - Final
Sputum Gram Stain - Final
11/10/24 19:15 Urine Culture - Final
Urine NO GROWTH
11/10/24 12:27 Influenza Types A & B (BRANDON) - Final
Nasal Swab Negative for Influenza A & B, NAAT
Negative results must be combined with clinical observations
and patient history.
Nucleic Acid Amplification test (NAAT)performed on the
[employer] platform.
No evidence of active cardiopulmonary disease.
[2024-11-13 15:33] VITALS: BP 109/50
[2024-11-13] MEDS: MIRALAX 17 GRAMS PO (15:48)
[2024-11-13] MEDS: CRESTOR 10 MG PO (17:56)
[2024-11-13 20:48] VITALS: BP 131/51
[2024-11-13] MEDS: GRANIX 480 MCG SC (21:45)
[2024-11-13 23:00] VITALS: BP 109/53
[2024-11-14] MEDS: MAXIPIME 2000 MG IV ×2 (03:35→15:18)
[2024-11-14] MEDS: STERILE WATER FOR INJECTION 10 ML IV ×2 (03:35→15:15)
[2024-11-14 06:00] VITALS: BMI 20.9
--- NOTE | 2024-11-14 06:35 | W.PN.ONC2 ---
Today's Communication / Plan
-
Consider transition to oral antibiotic as I do not anticipate significant marrow recovery despite G-CSF although today's WBC count is pending after G-CSF started on 11/12.
Impression
Impression
AML, last cycle hypomethylating agent completed October 29 and he received pegfilgrastim on November 02
acute thrombocytopenia and acute on chronic anemia
Neutropenic fever
Suspected acute bronchitis
CAD with stents, PAF
Plan
Plan
Cultures remain negative. Patient remains on IV antibiotics.
ANC remains critically low between 100�300 (today's is pending). This is despite initiation of GCSF 480mcg started 11/12.
I do not believe patient's ANC will actually rise significantly so we probably need to transition to a empiric course of oral antibiotics.
Will discuss with infectious disease.
Continue viral and fungal prophylaxis
Hold Venclexta
Agrees to outpt marrow.
Subjective/Objective
Chief Complaint
ACS hematology oncology progress follow-up
Subjective
No new complaints. Patient remains on IV antibiotics and remains afebrile.
Vital Signs:
Vital Signs
Temp Pulse Resp BP Pulse Ox
98.2 F 78 18 109/53 95
11/13/24 23:00 11/13/24 23:00 11/13/24 23:00 11/13/24 23:00 11/13/24 23:00
Lab Results:
Laboratory Data
WBC 0.6 10^3/uL (4.8-10.8) L* 11/13/24 08:06
Hgb 8.2 g/dL (13.0-18.0) L 11/13/24 08:06
Plt Count 58 10^3/uL (130-400) L D 11/13/24 08:06
PT 14.2 Sec (11.4-14.6) 11/12/24 12:18
INR 1.06 11/12/24 12:18
APTT 45.4 Sec (23.4-35.0) H 11/12/24 12:18
eGFR > 60.00 11/13/24 08:06
Physical Exam
Nontoxic, AAOx3
HEENT: No Jaundice
Cardiology: S1 and S2
Pulmonary: Clear
Neuro: Non Focal
[2024-11-14] MEDS: DUONEB 3 ML INH ×4 (07:28→19:44)
[2024-11-14 07:44] VITALS: BP 108/50
[2024-11-14] MEDS: ZOVIRAX 800 MG PO ×2 (08:04→20:29)
[2024-11-14] MEDS: VFEND 200 MG PO ×2 (08:04→20:29)
[2024-11-14] MEDS: MUCINEX 600 MG PO ×2 (08:04→20:29)
[2024-11-14] MEDS: MIRALAX 17 GRAMS PO (08:04)
[2024-11-14] MEDS: PACERONE 100 MG PO (08:05)
[2024-11-14] MEDS: LOPRESSOR PO ×2 (08:05→20:29)
[2024-11-14] MEDS: NORVASC PO (08:05)
--- NOTE | 2024-11-14 08:20 | W.PN.HOSP.TC ---
Today's Communication/Plan
-
see bold
Assessment / Plan
Assessment / Plan
Gen: NAD, AAOx3, appears chronically ill malnourished
Eyes: EOMI, PERRLA, no scleral icterus.
Neck: supple.
CV: RRR, +S1/S2, no m/r/g.
Resp: CTAB, no rales, wheezes, or rhonchi.
Abd: +BS, soft, NT, ND
Skin: No rashes.
Neuro: CN 2-12 intact, non-focal.
Psych: Normal mood and affect.
11/10/24 13:40 Blood/Venous Blood Culture - Preliminary
No Growth in 72 hours- Final report to follow
11/10/24 13:40 Blood/Venous Blood Culture - Preliminary
No Growth in 72 hours- Final report to follow
11/13/24 06:20 Sputum Respiratory Culture - Final
11/13/24 06:20 Sputum Gram Stain - Final
11/10/24 19:15 Urine Urine Culture - Final
NO GROWTH
11/10/24 12:27 Nasal Swab Influenza Types A & B (BRANDON) - Final
Negative for Influenza A & B, NAAT
Negative results must be combined with clinical observations
and patient history.
Nucleic Acid Amplification test (NAAT)performed on the
[employer] platform.
CXR 11/10/24: Stable radiographic appearance. No evidence of active cardiopulmonary disease.
Sepsis with Neutropenic fever:
-no evidence of PNA at this time, CXR clear (PNA has been ruled out)
-ID/ONC following
-cont Cefepime
-BCxs/UCx/resp Cx NG
-cont home Acyclovir/Voriconazole
AML:
-with pancytopenia due to AML itself and chemo (also could be AE from Venclexta)
-s/p 1U pRBCs
-currently on Granix but as per discussion with oncology this likely will not have any significant effect on the patient's leukopenia
Other problems:
Hyponatremia, mild
CAD: ASA on hold with Continue rosuvastatin
PAF: cont Amio/BB
Essential HTN: cont BB/Norvasc
CKD3a
BPH
Mild protein calorie malnutrition
FULL/SCDs + encourage ambulation
Anticipated Discharge: Within 24 hours
Subjective/Interval History
-
Date of Service: November 14, 2024
No new complaints. Denies chest pain, shortness breath, abdominal pain.
Objective Data
-
Labs:
Laboratory Results
11/14/24
07:46
WBC Pending
Hgb Pending
Hct Pending
Plt Count Pending
Sodium Pending
Potassium Pending
Chloride Pending
Carbon Dioxide Pending
BUN Pending
Creatinine Pending
Glucose Pending
Calcium Pending
Vital Signs:
Vital Signs
Temp Pulse Resp BP Pulse Ox
98.2 F 69 16 108/50 96
11/13/24 23:00 11/14/24 08:05 11/14/24 07:29 11/14/24 08:05 11/14/24 07:29
I&O
11/13/24 11/14/24 11/15/24
06:59 06:59 06:59
Intake Total 2049 960 / 960
Balance 2049 960 / 960
[2024-11-14 08:38] LABS: Hematocrit 22.6 % (39.0-52.0); Hemoglobin 7.8 g/dL (13.0-18.0); Mean Corp Hgb Conc. 34.5 g/dL (33.0-37.0); Mean Corpuscular Hgb 34.5 pg (27.0-31.0); Mean Platelet Volume 11.2 fL (7.4-10.4); Platelet Count 67 10^3/uL (130-400); Red Blood Cell Count 2.26 10^6/uL (4.70-6.10); Red Cell Dist. Width 17.2 % (11.5-14.5); White Blood Cell Count 0.7 10^3/uL (4.8-10.8)
[2024-11-14 08:51] LABS: Blood Urea Nitrogen 28 mg/dl (9-20); Calcium 8.8 mg/dl (8.4-10.2); Carbon Dioxide 22 mmol/L (22-30); Chloride 104 mmol/L (98-107); Estimated Creatinine Clearance 43 ml/min; Glucose 118 mg/dl (70-99); Magnesium 2.2 mg/dl (1.6-2.3); Sodium 134 mmol/L (135-145); eGFR > 60.00
[2024-11-14 10:28] LABS: % Basophils 1.5 % (0-2); % Eosinophils 1.5 % (0-6); % Immature Granulocytes 1.5 % (0-0.5); % Lymphocytes 34.8 % (20.5-51.1); % Neutrophils 57.7 % (42.2-75.2); Absolute Lymphocytes 0.2 10^3/uL (1.2-3.4); Absolute Neutrophils 0.4 10^3/uL (1.4-6.5); Nucleated Red Blood Cells % 0 % (-)
--- NOTE | 2024-11-14 11:56 | CM ---
CM reviewed chart, patient seen in chair, discussed PT recommendation of outpatient PT. Patient declining at this time, reports no needs from CM upon discharge. Patient likely for discharge tomorrow, patient confirms he has transportation home. CM
will continue to follow for all discharge planning needs.
Plan; home no needs, likely tomorrow, declining outpatient PT
--- NOTE | 2024-11-14 14:33 | W.PN.ID1 ---
Date of Service
Date of Service: November 14, 2024
Today's Communication
Continue cefepime for today.
Assessment / Plan
#AML, on decitabine, venotoclax every 6 weeks last received October 29, pegfilgrastim on November 02
# Neutropenic fever
# Cough; productive of phlegm
- COVID/Flu neg
- CXR neg
- Ucx neg
- Bcx's x 2 neg to date
- ANC ~200
--> Continue with cefepime (d#5)
- possible transition to oral abx (or abx stoppage) next 24 hours.
- Continue prophylactic acyclovir and voriconazole.
- Follow temps.
- Await for bone marrow recovery.
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
AML, on decitabine, venotoclax every 6 weeks
Coronary Artery Disease s/p Stents
Paroxysmal Atrial Fibrillation
Essential Hypertension
Hyperlipidemia
CKD Stage IIIA
Psoriasis
BPH
Skin melanoma excision
Right Femur Fracture Repair
Chief Complaint
-: Other (neutropenic fever)
Subjective / Review of Systems
Review of Systems: No Fever, No Chills, Cough and No Sputum Production
Vital Signs / Physical Exam
Vital Signs
Vital Signs
Temp Pulse Resp BP Pulse Ox
98 F 80 16 108/50 98
11/14/24 07:44 11/14/24 11:04 11/14/24 11:04 11/14/24 08:05 11/14/24 07:44
Physical Exam
Constitutional: No Acute Distress, Comfortable, Chronically Ill and Non-toxic
Eyes: Sclera Anicteric
Cardiovascular: Regular Rate and S1/S2; Negative S3/S4
Pulmonary: Symmetric and Non Labored; Negative Wheezes or Rales
Gastrointestinal: Soft, Non Tender and Non Distended
Extremities: Negative Edema or Clubbing
Skin: Dry; Negative Rash or Jaundice
Neurological: Awake
Psychological: Calm
Objective Data
Lab Data
Lab Results
11/14/24 07:46
11/14/24 07:46
PT 14.2 Sec (11.4-14.6) 11/12/24 12:18
INR 1.06 11/12/24 12:18
APTT 45.4 Sec (23.4-35.0) H 11/12/24 12:18
Estimated Creat Clear 43 ml/min 11/14/24 07:46
Lactic Acid 0.8 mmol/L (0.7-2.0) 11/10/24 13:40
Total Bilirubin 0.9 mg/dl (0.2-1.3) 11/10/24 12:27
AST 21 U/L (17-59) 11/10/24 12:27
ALT 14 U/L (0-50) 11/10/24 12:27
Alkaline Phosphatase 128 U/L (38-126) H 11/10/24 12:27
Most recent labs reviewed.
Micro Results:
11/10/24 13:40 Blood Culture - Preliminary
Blood/Venous No Growth in 4 days- Final report to follow
11/10/24 13:40 Blood Culture - Preliminary
Blood/Venous No Growth in 4 days- Final report to follow
11/13/24 06:20 Respiratory Culture - Final
Sputum Gram Stain - Final
11/10/24 19:15 Urine Culture - Final
Urine NO GROWTH
11/10/24 12:27 Influenza Types A & B (BRANDON) - Final
Nasal Swab Negative for Influenza A & B, NAAT
Negative results must be combined with clinical observations
and patient history.
Nucleic Acid Amplification test (NAAT)performed on the
[employer] platform.
No evidence of active cardiopulmonary disease.
[2024-11-14 15:19] VITALS: BP 122/55
[2024-11-14] MEDS: CRESTOR 10 MG PO (17:02)
[2024-11-14 17:37] VITALS: BP 98/45; O2SAT 94
[2024-11-14 19:57] VITALS: BP 93/59
[2024-11-14] MEDS: GRANIX 480 MCG SC (21:23)
[2024-11-14 23:17] VITALS: BP 121/57
[2024-11-15] MEDS: STERILE WATER FOR INJECTION 10 ML IV (03:05)
[2024-11-15] MEDS: MAXIPIME 2000 MG IV (03:05)
[2024-11-15 05:19] LABS: Hematocrit 21.9 % (39.0-52.0); Hemoglobin 7.6 g/dL (13.0-18.0); Mean Corp Hgb Conc. 34.7 g/dL (33.0-37.0); Mean Corpuscular Hgb 34.9 pg (27.0-31.0); Mean Corpuscular Volume 100.5 fL (80.0-94.0); Mean Platelet Volume 10.6 fL (7.4-10.4); Platelet Count 69 10^3/uL (130-400); Red Blood Cell Count 2.18 10^6/uL (4.70-6.10); Red Cell Dist. Width 16.5 % (11.5-14.5); White Blood Cell Count 0.8 10^3/uL (4.8-10.8)
[2024-11-15 06:00] VITALS: BMI 20.9
[2024-11-15 07:20] VITALS: BP 107/56
[2024-11-15] MEDS: DUONEB 3 ML INH (07:47)
[2024-11-15 08:04] LABS: % Basophils 1.2 % (0-2); % Eosinophils 2.5 % (0-6); % Immature Granulocytes 4.9 % (0-0.5); % Lymphocytes 25.9 % (20.5-51.1); % Monocytes 2.5 % (1.7-9.3); Absolute Lymphocytes 0.2 10^3/uL (1.2-3.4); Absolute Neutrophils 0.5 10^3/uL (1.4-6.5); Nucleated Red Blood Cells % 0 % (-)
[2024-11-15] MEDS: MUCINEX 600 MG PO (08:08)
[2024-11-15] MEDS: PACERONE 100 MG PO (08:08)
[2024-11-15] MEDS: VFEND 200 MG PO (08:08)
[2024-11-15] MEDS: MIRALAX 17 GRAMS PO (08:08)
[2024-11-15] MEDS: LOPRESSOR PO (08:09)
[2024-11-15] MEDS: NORVASC PO (08:09)
[2024-11-15] MEDS: ZOVIRAX 800 MG PO (08:09)
[2024-11-15] MEDS: SENOKOT-S 1 TABLET PO (10:29)
--- NOTE | 2024-11-15 10:58 | W.PN.UPDATE ---
Addendum entered and electronically signed by Chalo Hawkins MD 11/15/24 14:27:
Total time spent on d/c = 31 min. This included today's physical exam, progress note, review of laboratory and diagnostic data, preparation of discharge documents and prescriptions, and discussions about the pt's hospital course and discharge plan
with the patient and other district medical examiner involved in the patient's care.
Original Note:
Update Note
Progress Note Update
I saw and evaluated the patient. I reviewed the resident�s note and agree with findings and plan as documented in the resident�s note.
No new complaints. Denies chest pain or shortness of breath.
Gen: NAD, AAOx3, appears chronically ill malnourished
Eyes: EOMI, PERRLA, no scleral icterus.
Neck: supple.
CV: RRR, +S1/S2, no m/r/g.
Resp: CTAB, no rales, wheezes, or rhonchi.
Abd: +BS, soft, NT, ND
Skin: No rashes.
Neuro: CN 2-12 intact, non-focal.
Psych: Normal mood and affect.
11/10/24 13:40 Blood/Venous Blood Culture - Preliminary
No Growth in 4 days- Final report to follow
11/10/24 13:40 Blood/Venous Blood Culture - Preliminary
No Growth in 4 days- Final report to follow
11/13/24 06:20 Sputum Respiratory Culture - Final
11/13/24 06:20 Sputum Gram Stain - Final
11/10/24 19:15 Urine Urine Culture - Final
NO GROWTH
11/10/24 12:27 Nasal Swab Influenza Types A & B (BRANDON) - Final
Negative for Influenza A & B, NAAT
Negative results must be combined with clinical observations
and patient history.
Nucleic Acid Amplification test (NAAT)performed on the
[employer] platform.
CXR 11/10/24: Stable radiographic appearance. No evidence of active cardiopulmonary disease.
Sepsis with Neutropenic fever:
-no evidence of PNA at this time, CXR clear (PNA has been ruled out)
-ID/ONC following
-BCxs/UCx/resp Cx NG
-cont home Acyclovir/Voriconazole
-ANC 500
-has been on Cefepime, transition to Augmentin 875mg PO BID through 11/20/24 as per ID.
AML:
-with pancytopenia due to AML itself and chemo (also could be AE from Venclexta)
-s/p 1U pRBCs
-currently on Granix but as per discussion with oncology this likely will not have any significant effect on the patient's leukopenia
Other problems:
Hyponatremia, mild
CAD: ASA on hold with Continue rosuvastatin
PAF: cont Amio/BB
Essential HTN: cont BB/Norvasc
CKD3a
BPH
Mild protein calorie malnutrition
FULL/SCDs + encourage ambulation
Medically cleared for discharge. Case management aware.
[2024-11-15] MEDS: DUONEB INH ×2 (11:19→15:08)
[2024-11-15 11:27] LABS: Copper, Serum 189.1 ug/dL (70.0-140.0)
--- NOTE | 2024-11-15 11:33 | W.PN.ID1 ---
Date of Service
Date of Service: November 15, 2024
Today's Communication
Transition to Augmentin 875mg po bid through 11/20/24.
Assessment / Plan
#AML, on decitabine, venotoclax every 6 weeks last received October 29, pegfilgrastim on November 02
# Neutropenic fever; fever resolved
# Cough; productive of phlegm
- COVID/Flu neg
- CXR neg
- Ucx neg
- Bcx's x 2 neg to date
- ANC ~500
- Discontinue with cefepime (d#6)
- Transition to Augmentin 875mg po bid through 11/20/24.
- Continue prophylactic acyclovir and voriconazole.
- Await for bone marrow recovery.
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
AML, on decitabine, venotoclax every 6 weeks
Coronary Artery Disease s/p Stents
Paroxysmal Atrial Fibrillation
Essential Hypertension
Hyperlipidemia
CKD Stage IIIA
Psoriasis
BPH
Skin melanoma excision
Right Femur Fracture Repair
Chief Complaint
-: Other (neutropenic fever)
Subjective / Review of Systems
Feels well. Cough resolving.
Vital Signs / Physical Exam
Vital Signs
Vital Signs
Temp Pulse Resp BP Pulse Ox
98.1 F 77 14 107/56 97
11/15/24 07:20 11/15/24 08:08 11/15/24 07:49 11/15/24 08:09 11/15/24 07:49
Physical Exam
Constitutional: No Acute Distress and Comfortable
Pulmonary: Clear
Gastrointestinal: Soft, Non Tender and Non Distended
Genito-Urinary: Negative CVA Tenderness
Extremities: Negative Edema
Neurological: AO x 3
Objective Data
Lab Data
Lab Results
11/15/24 04:38
11/14/24 07:46
PT 14.2 Sec (11.4-14.6) 11/12/24 12:18
INR 1.06 11/12/24 12:18
APTT 45.4 Sec (23.4-35.0) H 11/12/24 12:18
Estimated Creat Clear 43 ml/min 11/14/24 07:46
Lactic Acid 0.8 mmol/L (0.7-2.0) 11/10/24 13:40
Total Bilirubin 0.9 mg/dl (0.2-1.3) 11/10/24 12:27
AST 21 U/L (17-59) 11/10/24 12:27
ALT 14 U/L (0-50) 11/10/24 12:27
Alkaline Phosphatase 128 U/L (38-126) H 11/10/24 12:27
Most recent labs reviewed.
Micro Results:
11/10/24 13:40 Blood Culture - Preliminary
Blood/Venous No Growth in 4 days- Final report to follow
11/10/24 13:40 Blood Culture - Preliminary
Blood/Venous No Growth in 4 days- Final report to follow
11/13/24 06:20 Respiratory Culture - Final
Sputum Gram Stain - Final
11/10/24 19:15 Urine Culture - Final
Urine NO GROWTH
11/10/24 12:27 Influenza Types A & B (BRANDON) - Final
Nasal Swab Negative for Influenza A & B, NAAT
Negative results must be combined with clinical observations
and patient history.
Nucleic Acid Amplification test (NAAT)performed on the
[employer] platform.
No evidence of active cardiopulmonary disease.
--- NOTE | 2024-11-15 11:54 | W.PN.HOSP.TC ---
Today's Communication/Plan
-
Convert to PO Abx, Discharge planning
Assessment / Plan
Assessment / Plan
84-year-old male with history of AML on chemo, CAD status post PCI, hypertension, paroxysmal A-fib, CKD 3a, BPH who presents with neutropenic sepsis and pancytopenia
Neutropenic fever:
Sepsis
No evidence of PNA
-Continue ppx acyclovir and voriconazole
-Appreciate Infectious disease recs: Transition from cefepime to Augmentin 875mg po bid through 11/20/24.
-Blood and urine cultures negative
-Antitussives, incentive akila
Pancytopenia:
Secondary to AML/chemo and possibly Venclexta contributory
Anemia hemoglobin 8.7 --> 6.9, s/p 1u PRBC given. Hgb stable at 7.6 today. platelets stable in 60s 47, ANC 500
-Venclexta held
-Appreciate hem/oncology recs: Unlikely significant marrow recovery anticipated at this time, s/p GCSF
-To follow-up with Dr. Linder outpatient when stable
Hyponatremia:
134, stable
-monitor BMP
CAD:
-Hold aspirin with low platelets
-Continue rosuvastatin
Paroxysmal A-fib:
-Stable
-Continue metoprolol and amiodarone
Hypertension:
Continue amlodipine, BB
CKD 3a:
-Creatinine at baseline, avoid nephrotoxic agents, monitor BMP
BPH:
-Bladder scan protocol if retention
DVT prophylaxis: SCDs, encourage ambulation
CODE STATUS: Full code
Anticipated Discharge: Today
Subjective/Interval History
-
Date of Service: November 15, 2024
No acute changes overnight
Objective Data
-
Labs:
Laboratory Results
11/15/24
04:38
WBC 0.8 L*
Hgb 7.6 L
Hct 21.9 L
Plt Count 69 L
Vital Signs:
Vital Signs
Temp Pulse Resp BP Pulse Ox
98.1 F 77 14 107/56 97
11/15/24 07:20 11/15/24 08:08 11/15/24 07:49 11/15/24 08:09 11/15/24 07:49
I&O
11/14/24 11/15/24 11/16/24
06:59 06:59 06:59
Intake Total 960 / 960 1200 / 1200
Balance 960 / 960 1200 / 1200
Review of Systems
-
History Source: Patient
Constitutional: Denies Fever
Respiratory: Reports Cough; Denies Trouble Breathing
Cardiac: Denies Chest Pain
Abdomen/GI: Reports Constipated; Denies Abdominal Pain, Nausea, Vomiting or Diarrhea
Genitourinary: Denies Difficulty Voiding
Physical Exam
-
General: No Apparent Distress, Comfortable and Appears Chronically Ill
HEENT: Normocephalic, Atraumatic and Moist Mucous Membranes
Respiratory: Clear to Auscultation and Non Labored Respirations; Negative Wheezes, Rales, Rhonchi or Crackles
Cardiac: Regular Rhythm and S1/S2; Negative Murmur, Rub or Calf Tenderness
GI: Soft, Nontender and Nondistended
Genito-urinary: No Costovertebral Tender
Skin: Warm and Dry
Neuro: Awake and Alert
Psych: Calm
--- NOTE | 2024-11-15 12:31 | W.PN.ONC2 ---
Today's Communication / Plan
-
Ok for discharge from hematology standpoint.
CBC weekly will be arranged through our office.
hold Venetoclax on discharge and will assess when to resume with his oncologist.
Impression
Impression
AML, last cycle hypomethylating agent completed October 29 and he received pegfilgrastim on November 02
acute thrombocytopenia and acute on chronic anemia
Neutropenic fever
Suspected acute bronchitis
CAD with stents, PAF
Plan
Plan
Cultures remain negative. Patient remains on IV antibiotics with plan to transition to PO today.
ANC remains critically low despite initiation of GCSF 480mcg started 11/12 however modest improvement up to 500. Hgb with mild downtrend since last transfusion, 7.6 g/dl today. plts stable.
will arrange for weekly CBCs from office.
Continue viral and fungal prophylaxis
Hold Venclexta
Agrees to outpt marrow.
Subjective/Objective
Chief Complaint
PNA, pancytopenia with hx of AML
Subjective
pt has no new complaints today, cough improving. remains afebrile. Denies CP, KLEIN, chills.
Vital Signs:
Vital Signs
Temp Pulse Resp BP Pulse Ox
98.1 F 77 14 107/56 97
11/15/24 07:20 11/15/24 08:08 11/15/24 07:49 11/15/24 08:09 11/15/24 07:49
Lab Results:
Laboratory Data
WBC 0.8 10^3/uL (4.8-10.8) L* 11/15/24 04:38
Hgb 7.6 g/dL (13.0-18.0) L 11/15/24 04:38
Plt Count 69 10^3/uL (130-400) L 11/15/24 04:38
PT 14.2 Sec (11.4-14.6) 11/12/24 12:18
INR 1.06 11/12/24 12:18
APTT 45.4 Sec (23.4-35.0) H 11/12/24 12:18
eGFR > 60.00 11/14/24 07:46
Physical Exam
HEENT: No Jaundice
Cardiology: Normal Sinus Rhythm
Pulmonary: No Wheezes, Rales or Rhonchi
Extremities: No Edema
Neuro: Non Focal
Review of Systems
Review of Systems
Constitutional: Reports Fatigue; Denies Fever
Respiratory: Reports Cough; Denies Dyspnea
Cardiovascular: Denies Chest Pain
Neurological: Denies Headache
Hem/Lymphatic: Denies Easy Bruising
--- NOTE | 2024-11-15 13:54 | CM ---
CM reviewed chart, patient seen bedside with , discussed plan for discharge today. Patients will provide transportation home. IMM verbally reviewed, agreeable to discharge, provided with copy, placed in chart. CM will continue to follow for
all discharge planning needs.
Plan; home with , no needs.
[2024-11-15 14:54] VITALS: BP 142/73
--- NOTE | 2024-11-15 15:06 | PTCARENOTE ---
Patient working with PT on RA, O2 desat to 85% patient placed on 2L NC while sitting up in chair, O2 sat increased to 90% will continue to monitor.
--- NOTE | 2024-11-15 18:54 | W.DCSUMMARY ---
Discharge Summary
Discharge Data
Date of Admission: 11/10/24
Date of Discharge: 11/15/24
-
Pending Results: No
Hospital Course
Discharging Physician : Rosie Velarde MD; Chalo Hawkins MD.
Disposition : Home
Primary care physician : Tien Blake MD.
Principal Discharge diagnosis : Sepsis secondary to acute bronchitis, Neutropenic fever, pancytopenia (acute thrombocytopenia, neutropenia, acute on chronic anemia), acute bronchitis, mild protein calorie malnutrition, hyponatremia
Chronic Discharge diagnosis : AML (on chemo), coronary artery disease, hypertension, A-fib, chronic kidney disease 3 A,
Hospital Course :
HPI:
84 y/o male past medical history of AML, A-Fib, CAD, HTN and BPH who presents with cough. Patient reports cough started about 1 week ago. He reports cough is productive of milky/white thick mucus. He reports associated shortness of breath, and
chest soreness due to frequent cough. He reports fevers at home as high as 101 �F last night. Last cycle hypomethylating agent completed October 29 and he received pegfilgrastim on November 02
Upon arrival to the ED, vitals were stable, chemistry significant for sodium of 134, creatinine 1.4, CBC with WBC 0.9, ANC 0.5. Cough and rhonchi was noted on lung exam. Heme-onc and infectious disease specialists were consulted. He was started on
cefepime. He was noted to be febrile to 100.5 once on the day of admission, with no recurrence throughout stay. He was influenza and covid negative. CXR showed no evidence of PNA. Blood, urine and sputum cultures were all negative. Upper respiratory
infection/bronchitis steadily improved with antitussives, and incentive spirometry as appropriate.
Pt was started on GCSF 480mcg daily with plan to discontinue when ANC>1500. Unfortunately, ANC remained critically low despite initiation of GCSF, and it was deemed unlikely to achieve significant marrow recovery in the acute setting and he is to
follow up with heme-onc, and with weekly CBCs.
Patient received 1 unit of PRBCs for anemia with hgb downtrend to 6.9. This improved to 8.2 with slow downtrend to 7.6 by discharge.
Patient was then transitioned from IV cefepime to p.o. Augmentin. He is to continue Augmentin 875mg to complete 10 day course through 11/20.
Home chronic medications were continued as appropriate.
He can continue ijwj-[id number] Mirilax daily to help with constipation.
Venetoclax is held on discharge resumption of this medication will be decided by his oncologist.
Strong recommendation to follow up with Dr. Linder (hematology/oncology) shortly.
Follow up shortly with PCP.
Important imaging findings :
Chest x-ray 11/10:
Stable radiographic appearance. No evidence of active cardiopulmonary disease.
Discharge Plan
-
Patient Disposition: Home (Routine Discharge)
Discharge Diagnosis/Procedures: Neutropenic fever, Pancytopenia
Condition: Fair
Diet: Low Sodium
Activity: No restrictions
Driving Restrictions: As prior to admission
Bathing Restrictions: None
Referrals:
Tien Blake MD [Family Provider] - in less than 1 week
Jaiden Linder MD [Active] - in less than 1 week
Additional Discharge Medication Instructions: Continue taking Augmentin 875mg po bid through 11/20/24
You can take [id number] Mirilax daily to help you have regular bowel movements
Prescriptions:
New
amoxicillin-pot clavulanate 875-125 mg Tablet
1 tab PO Q12 Qty: 11 0RF
Continued
rosuvastatin 10 MG tablet
10 mg PO QPM
acyclovir 800 MG tablet
800 mg PO BID
voriconazole 200 MG tablet
200 mg PO BID
Venclexta 100 MG tablet
100 mg PO DAILY Qty: 0 0RF
Rx Instructions:
when recomended by oncology
amlodipine 5 mg Tablet
5 mg PO DAILY
amiodarone 100 mg tablet
100 mg PO DAILY
metoprolol tartrate 25 MG tablet
25 mg PO BID
Rx Instructions:
Take 50mg qam, 25mg qpm
Held
aspirin 81 MG tablet,delayed release (DR/EC)
81 mg PO DAILY
Hold Instructions: Please discuss with laboratory immunologist/oncologist before continuing this medication
Discharge Orders:
Discharge Patient (As Directed); Ordered 11/15/24
Ordered By: Rosie Velarde
Discharge Date and Time
Discharge Date/Time: 11/15/24 15:13
Print Language: IRISH
== END 2024-11-15 15:13 | disposition home or self-care (01) | DRG 871 ==
LOC: 4 WEST ACU 17:07
PROVIDERS: Internal Medicine; Nurse Practitioner Acute Care; Physician Assistant; Physician Assistant Medical; Student in an Organized Health Care Education/Training Program; ADMITTING PHYSICIAN Hospitalist; ATTENDING PHYSICIAN Internal Medicine; CONSULT PHYSICIAN Internal Medicine Hematology & Oncology; EMERGENCY PHYSICIAN Student in an Organized Health Care Education/Training Program; FAMILY PHYSICIAN Family Medicine; OTHER PHYSICIAN Internal Medicine Infectious Disease
PROC: 30243N1 Transfusion of Nonautologous Red Blood Cells into Central Vein, Percutaneous Approach (ICD-10-PCS; 2024-11-12)
DX: A41.9 Sepsis, unspecified organism (principal); D61.810 Antineoplastic chemotherapy induced pancytopenia; E44.1 Mild protein-calorie malnutrition; E87.1 Hypo-osmolality and hyponatremia; C92.00 Acute myeloblastic leukemia, not having achieved remission; J20.9 Acute bronchitis, unspecified; R50.81 Fever presenting with conditions classified elsewhere; Z68.20 Body mass index [BMI] 20.0-20.9, adult; I25.10 Atherosclerotic heart disease of native coronary artery without angina pectoris; Z95.5 Presence of coronary angioplasty implant and graft; N18.31 Chronic kidney disease, stage 3a; I12.9 Hypertensive chronic kidney disease with stage 1 through stage 4 chronic kidney disease, or unspecified chronic kidney disease; I48.0 Paroxysmal atrial fibrillation; N40.0 Benign prostatic hyperplasia without lower urinary tract symptoms; K59.00 Constipation, unspecified; Z87.01 Personal history of pneumonia (recurrent); L40.9 Psoriasis, unspecified; Z87.891 Personal history of nicotine dependence; Z79.82 Long term (current) use of aspirin; Z92.21 Personal history of antineoplastic chemotherapy; Z11.52 Encounter for screening for COVID-19; E78.00 Pure hypercholesterolemia, unspecified; Z79.899 Other long term (current) drug therapy; Z85.820 Personal history of malignant melanoma of skin; Z83.3 Family history of diabetes mellitus
CPT/HCPCS: 71046; 80048; 80053; 81003; 81015; 82525; 82607; 82728; 82746; 83540; 83550; 83605; 83615; 83735; 84484; 84550; 85025; 85045; 85379; 85384; 85610; 85730; 86850; 86900; 86901; 86920; 87040; 87086; 87205; 87502; 87811; 93005; 94640; 96361; 96374; 97116; 97161; 97166; 99285; J1447; P9016

== ENCOUNTER → 2024-11-26 08:56 | Outpatient (REF) | payer MEDICARE, OTHER, SELFPAY ==
[2024-11-26 09:29] LABS: % Basophils 0.4 % (0-2); % Immature Granulocytes 1.4 % (0-0.5); % Lymphocytes 10.4 % (20.5-51.1); % Monocytes 18.4 % (1.7-9.3); % Neutrophils 69.4 % (42.2-75.2); Absolute Immature Granulocytes 0.1 10^3/uL (0-0.05); Absolute Lymphocytes 0.6 10^3/uL (1.2-3.4); Absolute Neutrophils 3.9 10^3/uL (1.4-6.5); Hematocrit 28.5 % (39.0-52.0); Hemoglobin 9.1 g/dL (13.0-18.0); Mean Corp Hgb Conc. 31.9 g/dL (33.0-37.0); Mean Corpuscular Hgb 34.1 pg (27.0-31.0); Mean Corpuscular Volume 106.7 fL (80.0-94.0); Mean Platelet Volume 9.6 fL (7.4-10.4); Nucleated Red Blood Cells % 0 % (-); Platelet Count 180 10^3/uL (130-400); Red Blood Cell Count 2.67 10^6/uL (4.70-6.10); Red Cell Dist. Width 17.2 % (11.5-14.5); White Blood Cell Count 5.6 10^3/uL (4.8-10.8)
[2024-11-26 09:31] VITALS: BP 128/61; BP_SYST 53
--- NOTE | 2024-11-26 10:21 | PTCARENOTE ---
IR- patient here for bone marrow biopsy. patient reports gave him one of her pills to take to calm him down. patient unsure of name of pill. left message for . Mag Hawley PA-C made aware.
[2024-11-26] MEDS: NSS (PRESERVATIVE FREE) 0.25 ML IV (10:23)
[2024-11-26] MEDS: ATIVAN 0.5 MG IV (10:23)
[2024-11-26 11:17] VITALS: BP 123/49
[2024-11-26 11:20] VITALS: BP 111/47
[2024-11-26 11:25] VITALS: BP 121/48
[2024-11-26 11:31] VITALS: BP 108/55
[2024-11-26 11:35] VITALS: BP 117/48
== END ==
LOC: RADI 08:56
PROVIDERS: ATTENDING PHYSICIAN Internal Medicine Hematology & Oncology; FAMILY PHYSICIAN Family Medicine; OTHER PHYSICIAN Physician Assistant
DX: C92.01 Acute myeloblastic leukemia, in remission (principal)
CPT/HCPCS: 88305; 88311; 88312; 36415; 38222; 77012; 85025; 88313

== ENCOUNTER → 2024-12-16 10:05 | Outpatient (REF) | payer MEDICARE, OTHER, SELFPAY ==
[2024-12-16 11:01] LABS: % Basophils 0.3 % (0-2); % Eosinophils 0.2 % (0-6); % Immature Granulocytes 0.6 % (0-0.5); % Lymphocytes 5.8 % (20.5-51.1); % Neutrophils 81.1 % (42.2-75.2); Absolute Immature Granulocytes 0.1 10^3/uL (0-0.05); Absolute Lymphocytes 0.5 10^3/uL (1.2-3.4); Absolute Monocytes 1.1 10^3/uL (0.1-0.6); Absolute Neutrophils 7.1 10^3/uL (1.4-6.5); Hematocrit 29.5 % (39.0-52.0); Hemoglobin 9.7 g/dL (13.0-18.0); Mean Corp Hgb Conc. 32.9 g/dL (33.0-37.0); Mean Corpuscular Hgb 34.5 pg (27.0-31.0); Mean Platelet Volume 9.7 fL (7.4-10.4); Nucleated Red Blood Cells % 0 % (-); Platelet Count 208 10^3/uL (130-400); Red Blood Cell Count 2.81 10^6/uL (4.70-6.10); White Blood Cell Count 8.8 10^3/uL (4.8-10.8)
[2024-12-19 01:02] LABS: Albumin 3.95 g/dL (3.75-5.01); Alpha 1 Globulin 0.33 g/dL (0.19-0.46); Alpha 2 Globulin 1.01 g/dL (0.48-1.05); Free Kappa Light Chains,Quant 32.99 mg/L (3.30-19.40); Free Lambda Light Chains,Quant 16.12 mg/L (5.71-26.30); IgA 281 mg/dL (68-408); IgG 635 mg/dL (768-1632); IgM 14 mg/dL (35-263); Immunofixation Electrophoresis IFE Done; Kappa/Lambda Fr Light Ratio 2.05 (0.26-1.65); Total Protein-Electrophoresis 6.8 g/dL (6.3-8.2)
== END ==
LOC: REG 10:05
PROVIDERS: ATTENDING PHYSICIAN Internal Medicine Hematology & Oncology; FAMILY PHYSICIAN Family Medicine
DX: C92.01 Acute myeloblastic leukemia, in remission (principal)
CPT/HCPCS: 36415; 82784; 83521; 84155; 84165; 85025; 86334

== ENCOUNTER → 2025-01-03 09:00 | Outpatient (REF) | payer MEDICARE, OTHER, SELFPAY ==
[2025-01-03 14:01] LABS: % Basophils 0.2 % (0-2); % Eosinophils 0.5 % (0-6); % Immature Granulocytes 0.3 % (0-0.5); % Lymphocytes 7.5 % (20.5-51.1); % Monocytes 7.2 % (1.7-9.3); % Neutrophils 84.3 % (42.2-75.2); Absolute Eosinophils 0.1 10^3/uL (0-0.7); Absolute Lymphocytes 0.8 10^3/uL (1.2-3.4); Absolute Monocytes 0.8 10^3/uL (0.1-0.6); Absolute Neutrophils 8.8 10^3/uL (1.4-6.5); Hematocrit 29.7 % (39.0-52.0); Mean Corp Hgb Conc. 33.7 g/dL (33.0-37.0); Mean Corpuscular Hgb 34.2 pg (27.0-31.0); Mean Corpuscular Volume 101.7 fL (80.0-94.0); Mean Platelet Volume 9.2 fL (7.4-10.4); Platelet Count 205 10^3/uL (130-400); Red Blood Cell Count 2.92 10^6/uL (4.70-6.10); Red Cell Dist. Width 15.5 % (11.5-14.5); White Blood Cell Count 10.4 10^3/uL (4.8-10.8)
[2025-01-03 15:53] LABS: ALT (SGPT) 16 U/L (0-50); AST (SGOT) 20 U/L (17-59); Albumin 4.7 g/dl (3.5-5.0); Alkaline Phosphatase 111 U/L (38-126); Blood Urea Nitrogen 24 mg/dl (9-20); Calcium 10.1 mg/dl (8.4-10.2); Carbon Dioxide 26 mmol/L (22-30); Chloride 105 mmol/L (98-107); Glucose 167 mg/dl (70-99); Potassium 4.4 mmol/L (3.5-5.1); Sodium 141 mmol/L (135-145); Total Bilirubin 0.5 mg/dl (0.2-1.3); Total Protein 6.9 g/dl (6.3-8.2); eGFR 49.25
== END ==
LOC: OIDL 09:00
PROVIDERS: ATTENDING PHYSICIAN Internal Medicine Hematology & Oncology
DX: C92.01 Acute myeloblastic leukemia, in remission (principal)
CPT/HCPCS: 80053; 85025

== ENCOUNTER → 2025-02-28 13:28 | Outpatient (REF) | payer MEDICARE, OTHER, SELFPAY ==
[2025-02-28 14:21] LABS: % Basophils 0.3 % (0-2); % Eosinophils 0.5 % (0-6); % Immature Granulocytes 0.3 % (0-0.5); % Lymphocytes 8.5 % (20.5-51.1); % Monocytes 12.2 % (1.7-9.3); % Neutrophils 78.2 % (42.2-75.2); Absolute Lymphocytes 0.7 10^3/uL (1.2-3.4); Absolute Neutrophils 6.2 10^3/uL (1.4-6.5); Hematocrit 33.1 % (39.0-52.0); Hemoglobin 11.1 g/dL (13.0-18.0); Mean Corp Hgb Conc. 33.5 g/dL (33.0-37.0); Mean Corpuscular Hgb 33.6 pg (27.0-31.0); Mean Corpuscular Volume 100.3 fL (80.0-94.0); Nucleated Red Blood Cells % 0 % (-); Platelet Count 216 10^3/uL (130-400); Red Cell Dist. Width 12.9 % (11.5-14.5); White Blood Cell Count 7.9 10^3/uL (4.8-10.8)
== END ==
LOC: REG 13:28
PROVIDERS: ATTENDING PHYSICIAN Internal Medicine Hematology & Oncology; FAMILY PHYSICIAN Family Medicine
DX: C92.01 Acute myeloblastic leukemia, in remission (principal)
CPT/HCPCS: 36415; 85025

== ENCOUNTER 2025-05-09 18:18 | Inpatient (IN) | payer MEDICARE, OTHER, SELFPAY ==
[2025-05-09] VITALS (8 sets, daily range): BP systolic 92–150; BP diastolic 49–74; BMI 16.1; BMI 22.1
[2025-05-09 11:59] LABS: Hematocrit 30.3 % (39.0-52.0); Hemoglobin 10.0 g/dL (13.0-18.0); Mean Corp Hgb Conc. 33.0 g/dL (33.0-37.0); Mean Corpuscular Volume 94.1 fL (80.0-94.0); Platelet Count 95 10^3/uL (130-400); Red Cell Dist. Width 14.2 % (11.5-14.5)
[2025-05-09 12:17] LABS: ALT (SGPT) 40 U/L (0-50); AST (SGOT) 43 U/L (17-59); Albumin 3.7 g/dl (3.5-5.0); Alkaline Phosphatase 133 U/L (38-126); Blood Urea Nitrogen 25 mg/dl (9-20); Calcium 8.9 mg/dl (8.4-10.2); Carbon Dioxide 26 mmol/L (22-30); Chloride 99 mmol/L (98-107); Glucose 160 mg/dl (70-99); Potassium 4.3 mmol/L (3.5-5.1); Sodium 133 mmol/L (135-145); Total Protein 6.3 g/dl (6.3-8.2); eGFR 48.95
[2025-05-09 13:54] LABS: Absolute Neutrophils -Man Diff 7.9 10^3/uL (1.4-6.5)
[2025-05-09 13:55] LABS: Normal RBC Morphology Yes; Platelets Checked Yes; Total Cells Counted 100
--- NOTE | 2025-05-09 15:16 | ED.GENMED ---
History of Present Illness
<Luz Marina Dooley DO, Resident - Last Filed: 05/10/25 06:08>
General
Chief Complaint: Cold/Flu/URI Symptoms
Time Seen by Provider: 05/09/25 14:42
History of Present Illness
History of Present Illness:
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 Patient has been feeling unwell for about a week, with increasing lethargy nausea
vomiting, diarrhea, shortness of breath and cough. Patient also has decreased appetite. Patient is also concerned about his facial lesions, for which are followed by dermatology. Patient has had many Mohs surgeries on his face, most recently 1
month ago. Patient and patient's are concerned about the lack of healing of the lesions, and concern for possible infection of the excisions. Patient is also concerned that he may be in A-fib as he has been told he is in A-fib before when he
is sick. Patient does not currently take any medication for A-fib. Patient has not taken any of his medications over the last few days because he has been feeling so poor and has had poor p.o. intake.
Past History
<Luz Marina Dooley DO, Resident - Last Filed: 05/10/25 06:08>
Past History
ED Past Medical History: CAD, HTN, Hypercholesterolemia and Other (History of pneumonia, frequent urination.)
ED Past Surgical History: Cardiac (Cardiac catheterization with stents) and Tonsilectomy
Social History
Tobacco: Former smoker
Alcohol: None
Personal:
Living: with family
Employment: Retired
Family History
Family History: Other (Grandmother with diabetes, father with pneumonia)
Review of Systems
<Luz Marina Dooley DO, Resident - Last Filed: 05/10/25 06:08>
Review of Systems
Allergies reviewed?: Yes
Other source history: family
All Other Systems: ROS reviewed and negative except as documented in HPI and ROS
Constitutional: Reports fatigue and chills
EENT: Reports sore throat
Respiratory: Reports cough and trouble breathing
Cardiac: Reports palpitations
ABD/GI: Reports nausea, vomiting and diarrhea
: Reports no symptoms
Skin: Reports other (Numerous squamous cell lesions and excisional wounds over face and scalp)
Neurological: Reports headache
Endocrine: Reports no symptoms
Hematologic/Lymphatic: Reports no symptoms
Psychiatric: Reports no symptoms
Phy Exam
<Luz Marina Dooley DO, Resident - Last Filed: 05/10/25 06:08>
General Physical Exam
General Presentation: well appearing and no apparent distress
General age: appears stated age
General Skin: warm
General Habitus: cachetic
General Mental: alert
Cardiovascular Exam
Cardiovascular Exam: regular rate/rhythm
Heart Sounds: normal
Pulmonary Exam
Pulmonary Exam: no respiratory distress
Gastrointestinal Exam
Gastrointestinal Exam: normal bowel sounds, non tender, soft and non distended
Skin Exam
Skin Exam: other (Numerous squamous cell lesions and excisional wounds over face and scalp)
Course
<Luz Marina Dooley DO, Resident - Last Filed: 05/10/25 06:08>
Orders/Labs/Results
Orders:
Orders
05/09/25 Lunch
IDDSI 5 - Minced & Moist
At Your Request: Full Participation
05/09/25 11:39
Complete Blood Count/With Diff Urgent
Comprehensive Metabolic Panel Urgent
Manual Differential Urgent
05/09/25 15:13
Electrocardiogram (*1) Urgent
Reason for Study: Shortness of Breath
EKG- Treatment ONCE
0.9% Sodium Chloride 500 ml [Nss] 500 ml IV BOLUS
CR Chest - 2 Views Urgent
Comment:
Reason For Exam: SOB, cough
05/09/25 17:04
Vancomycin [Vancocin] 1,500 mg 0.9% Sodium Chloride 500 ml [Nss] 500 ml IV NOW
05/09/25 17:09
ONCOLOGY CONSULT Routine
Consulting Provider: Jaiden Linder
Was physician already notified: Yes
Reason for consult: Hx of AML now 31% blasts with leukocytosis and thrombocytopenia
05/09/25 17:30
INFECTIOUS DISEASE CONSULT Routine
Consulting Provider: Matt Joseph
Was physician already notified: Yes
Reason for consult: concern for bacterial infection
05/09/25 17:32
CT Neck With Iv Contrast Urgent
Reason For Exam: R sided neck lump with sore throat
Rapid Strep Group A Urgent
SANGITA Source: Throat/Pharynx
Specimen Description:
Date Specimen was Collected: 05/10/25
Time Specimen was Collected: 12:34
0.9% Sodium Chloride 1000 ml [Nss] 1,000 ml IV BOLUS
05/09/25 17:48
CARDIOLOGY CONSULT Routine
Consulting Provider: Ray Nam
Was physician already notified: Yes
Reason for consult: recurrent Afib
COVID-19 Antigen Urgent
Source: Nasal Swab
UA Reflex to Culture [Urinalysis Reflex To Culture] Urgent
Date Specimen was Collected: 05/09/25
Time Specimen was Collected: 17:41
Urine Microscopic Reflex Cult Urgent
Blood Culture Q30M
SANGITA Source: Blood/Venous
Specimen Description:
Blood Culture Q30M
SANGITA Source: Blood/Venous
Specimen Description:
Influenza A+B Rapid Molecular Urgent
SANGITA Source: Nasal Swab
Specimen Description:
Urine Culture Urgent
SANGITA Source: U
Specimen Description:
Date Specimen was Collected: 05/09/25
Time Specimen was Collected: 17:41
05/09/25 17:49
Legionella Urinary Antigen Urgent
SANGITA Source: Urine
Specimen Description:
Strep pneumoniae Antigen Urgent
SANGITA Source: Urine
Specimen Description:
05/09/25 17:54
Admit/Transfer Patient As Directed
Co-Sign Provider:
Level of Care: Inpatient admission
Assign to:: Telemetry
Physician / Group: Cristi
Diagnosis: A/P: #Covid-19 no hypoxa and no signs of pneumonia on XR with 7 days into d
Reason for Telemetry: Arrhythmia
Date to Stop Telemetry: 05/12/25
Time to Stop Telemetry: 11:00
Reason for Hospitalization: Malaise, concern for infection
Expected length of stay greater than two midnights?: Yes
ELOS- Estimated Length of Stay in days: 4
I certify the patient meets the requirements for IP care: Yes
PRN Pain Medication Management As Directed
May give lesser potent ordered pain med per pt: Yes
preference::
Protocol:: Medication orders for pain may be administered in a
manner that supports deferring to patient preference
when the pt is:
- Requesting an ordered lesser potent pain medication.
Least to most potent pain medications are defined
as: acetaminophen < NSAID < tramadol < opioids
(morphine, oxycodone, hydromorphone).
- Requesting a lesser dose of the same medication IF
ORDERED.
- Requesting a less intrusive route of administration
if both routes are prescribed by the provider (PO <
IV).
05/09/25 17:55
Code Status As Directed
Resuscitation Status: Full Code
05/09/25 18:00
Heparin 07975 Units/250 ml 25,000 units in 250 ml IV PER PROTOCOL
Weight to be used for heparin protocol in kilograms (kg):: 61.608
Protocol:: Cardiac Tx/Acute Coronary
PTT Goal Range to be used:: PTT 73 to 111 seconds
Order type:: Initial
INITIAL Infusion Dose (UNITS/KG/hr) & then follow protocol:: 12 units/kg/hr
Infusion Dose in UNITS/hr & then follow protocol (UNITS/hr):: 750
INFUSION RATE in mL/hr & then follow protocol (mL/hr):: 7.5
PTT less than or equal to 64 seconds:: Increase rate by 200 units/hr (+ 2 mL/hr)
PTT 64.1 to 72.9 seconds:: Increase rate by 100 units/hr (+ 1 mL/hr)
PTT 73 to 111 seconds:: Target Range. No change in rate.
PTT 111.1 to 130.9 seconds:: Decrease rate by 100 units/hr (- 1 mL/hr)
PTT 131 to 199.9 seconds:: HOLD for 1 hr. Then decrease rate by 200 units/hr (- 2 mL/hr)
PTT greater than or equal to 200 seconds:: HOLD for 2 hrs & Notify Provider. Then decrease by 200 units/hr (-
2 mL/hr)
Lab follow-up:: Each change, PTT q6h until 2 consecutive are therapeutic. Then PTT
daily.
05/09/25 19:57
PTT Urgent
Comment: Obtain baseline before beginning heparin infusion if not already collected
05/09/25 20:10
Acetaminophen [Tylenol] 650 mg PO Q4HPRN PRN
05/09/25 21:37
Bisacodyl [Dulcolax] 10 mg RECTAL [id number] PRN
Docusate W/Senna [Senokot-S] 1 tablet PO BIDPRN PRN
Polyethylene Glycol Powder [Miralax] 17 grams PO DAILYPRN PRN
VANCOMYCIN Pharmacy to Dose [VANCOCIN Pharmacy to Dose] 1 each Pharmacy To Prepare [Call Pharmacy To Prepare] 0 ml IV PER PROTOCOL
05/09/25 21:37
Activity As Directed
Activity Level: Out of Bed-Early Mobility
Vital Signs As Directed
Frequency: Per unit guidelines
Ot Eval And Treat Routine
Pt Eval And Treat Routine
Activity Level: Out of Bed-Early Mobility
Speech Therapy Eval & Treat Routine
05/09/25 22:00
Cefepime HCl [Maxipime] 2,000 mg IV Q8H
Famotidine [Pepcid] 20 mg PO BID
Rosuvastatin Calcium [Crestor] 10 mg PO QPM
05/10/25 05:19
Complete Blood Count/With Diff IN AM
Comprehensive Metabolic Panel IN AM
Magnesium IN AM
TSH IN AM
05/10/25 08:00
Amiodarone [Pacerone] 100 mg PO DAILY
Amlodipine [Norvasc] 5 mg PO DAILY
05/12/25 11:00
DC Protocol for Telemetry ONCE
Abnormal Lab Results
05/09/25 05/09/25
11:39 17:48
WBC 24.7 H 10^3/uL
(4.8-10.8)
RBC 3.22 L 10^6/uL
(4.70-6.10)
Hgb 10.0 L g/dL
(13.0-18.0)
Hct 30.3 L %
(39.0-52.0)
MCV 94.1 H fL
(80.0-94.0)
MCH 31.1 H pg
(27.0-31.0)
Plt Count 95 L 10^3/uL
(130-400)
Abs Neuts (Manual) 7.9 H 10^3/uL
(1.4-6.5)
Segmented Neutrophils 30 L %
(42-75)
Monocytes (Manual) 12 H %
(2-9)
Blast Cells 31 H* %
(-)
Sodium 133 L mmol/L
(135-145)
BUN 25 H mg/dl
(9-20)
Creatinine 1.4 H mg/dL
(0.7-1.3)
Glucose 160 H mg/dl
(70-99)
Alkaline Phosphatase 133 H U/L
(38-126)
Ur Occult Blood Reflex 1+ A
(Negative)
Leukocyte Esterase Rfl 1+ A
(Negative)
Urine RBC 3-6 A /HPF
(0-2)
Urine WBC (Reflex) 11-15 A /HPF
(0-5)
Urine Bacteria (Reflex) Moderate A
(Negative)
Urine Glucose 1+ A
(Negative)
Urine Albumin (Reflex) 2+ A
(Neg - Trace)
05/09/25 11:39
05/09/25 11:39
Vital Signs
Initial and Last Documented VS:
Initial Vital Signs
Temp Pulse Resp BP Pulse Ox
98.3 F 100 18 92/52 95
05/09/25 11:29 05/09/25 11:29 05/09/25 11:29 05/09/25 11:29 05/09/25 11:29
Last Documented Vital Signs
Temp Pulse Resp BP Pulse Ox
98.9 F 88 16 130/54 96
05/10/25 11:30 05/10/25 11:30 05/10/25 11:30 05/10/25 11:30 05/10/25 11:30
<Jose Eduardo Segovia MD - Last Filed: 05/10/25 12:40>
Orders/Labs/Results
Orders:
Orders
05/09/25 Lunch
IDDSI 5 - Minced & Moist
At Your Request: Full Participation
05/09/25 11:39
Complete Blood Count/With Diff Urgent
Comprehensive Metabolic Panel Urgent
Manual Differential Urgent
05/09/25 15:13
Electrocardiogram (*1) Urgent
Reason for Study: Shortness of Breath
EKG- Treatment ONCE
0.9% Sodium Chloride 500 ml [Nss] 500 ml IV BOLUS
CR Chest - 2 Views Urgent
Comment:
Reason For Exam: SOB, cough
05/09/25 17:04
Vancomycin [Vancocin] 1,500 mg 0.9% Sodium Chloride 500 ml [Nss] 500 ml IV NOW
05/09/25 17:09
ONCOLOGY CONSULT Routine
Consulting Provider: Jaiden Linder
Was physician already notified: Yes
Reason for consult: Hx of AML now 31% blasts with leukocytosis and thrombocytopenia
05/09/25 17:30
INFECTIOUS DISEASE CONSULT Routine
Consulting Provider: Matt Joseph
Was physician already notified: Yes
Reason for consult: concern for bacterial infection
05/09/25 17:32
CT Neck With Iv Contrast Urgent
Reason For Exam: R sided neck lump with sore throat
Rapid Strep Group A Urgent
SANGITA Source: Throat/Pharynx
Specimen Description:
Date Specimen was Collected: 05/10/25
Time Specimen was Collected: 12:34
0.9% Sodium Chloride 1000 ml [Nss] 1,000 ml IV BOLUS
05/09/25 17:48
CARDIOLOGY CONSULT Routine
Consulting Provider: Ray Nam
Was physician already notified: Yes
Reason for consult: recurrent Afib
COVID-19 Antigen Urgent
Source: Nasal Swab
UA Reflex to Culture [Urinalysis Reflex To Culture] Urgent
Date Specimen was Collected: 05/09/25
Time Specimen was Collected: 17:41
Urine Microscopic Reflex Cult Urgent
Blood Culture Q30M
SANGITA Source: Blood/Venous
Specimen Description:
Blood Culture Q30M
SANGITA Source: Blood/Venous
Specimen Description:
Influenza A+B Rapid Molecular Urgent
SANGITA Source: Nasal Swab
Specimen Description:
Urine Culture Urgent
SANGITA Source: U
Specimen Description:
Date Specimen was Collected: 05/09/25
Time Specimen was Collected: 17:41
05/09/25 17:49
Legionella Urinary Antigen Urgent
SANGITA Source: Urine
Specimen Description:
Strep pneumoniae Antigen Urgent
SANGITA Source: Urine
Specimen Description:
05/09/25 17:54
Admit/Transfer Patient As Directed
Co-Sign Provider:
Level of Care: Inpatient admission
Assign to:: Telemetry
Physician / Group: Cristi
Diagnosis: A/P: #Covid-19 no hypoxa and no signs of pneumonia on XR with 7 days into d
Reason for Telemetry: Arrhythmia
Date to Stop Telemetry: 05/12/25
Time to Stop Telemetry: 11:00
Reason for Hospitalization: Malaise, concern for infection
Expected length of stay greater than two midnights?: Yes
ELOS- Estimated Length of Stay in days: 4
I certify the patient meets the requirements for IP care: Yes
PRN Pain Medication Management As Directed
May give lesser potent ordered pain med per pt: Yes
preference::
Protocol:: Medication orders for pain may be administered in a
manner that supports deferring to patient preference
when the pt is:
- Requesting an ordered lesser potent pain medication.
Least to most potent pain medications are defined
as: acetaminophen < NSAID < tramadol < opioids
(morphine, oxycodone, hydromorphone).
- Requesting a lesser dose of the same medication IF
ORDERED.
- Requesting a less intrusive route of administration
if both routes are prescribed by the provider (PO <
IV).
05/09/25 17:55
Code Status As Directed
Resuscitation Status: Full Code
05/09/25 18:00
Heparin 30624 Units/250 ml 25,000 units in 250 ml IV PER PROTOCOL
Weight to be used for heparin protocol in kilograms (kg):: 61.608
Protocol:: Cardiac Tx/Acute Coronary
PTT Goal Range to be used:: PTT 73 to 111 seconds
Order type:: Initial
INITIAL Infusion Dose (UNITS/KG/hr) & then follow protocol:: 12 units/kg/hr
Infusion Dose in UNITS/hr & then follow protocol (UNITS/hr):: 750
INFUSION RATE in mL/hr & then follow protocol (mL/hr):: 7.5
PTT less than or equal to 64 seconds:: Increase rate by 200 units/hr (+ 2 mL/hr)
PTT 64.1 to 72.9 seconds:: Increase rate by 100 units/hr (+ 1 mL/hr)
PTT 73 to 111 seconds:: Target Range. No change in rate.
PTT 111.1 to 130.9 seconds:: Decrease rate by 100 units/hr (- 1 mL/hr)
PTT 131 to 199.9 seconds:: HOLD for 1 hr. Then decrease rate by 200 units/hr (- 2 mL/hr)
PTT greater than or equal to 200 seconds:: HOLD for 2 hrs & Notify Provider. Then decrease by 200 units/hr (-
2 mL/hr)
Lab follow-up:: Each change, PTT q6h until 2 consecutive are therapeutic. Then PTT
daily.
05/09/25 19:57
PTT Urgent
Comment: Obtain baseline before beginning heparin infusion if not already collected
05/09/25 20:10
Acetaminophen [Tylenol] 650 mg PO Q4HPRN PRN
05/09/25 21:37
Bisacodyl [Dulcolax] 10 mg RECTAL [id number] PRN
Docusate W/Senna [Senokot-S] 1 tablet PO BIDPRN PRN
Polyethylene Glycol Powder [Miralax] 17 grams PO DAILYPRN PRN
VANCOMYCIN Pharmacy to Dose [VANCOCIN Pharmacy to Dose] 1 each Pharmacy To Prepare [Call Pharmacy To Prepare] 0 ml IV PER PROTOCOL
05/09/25 21:37
Activity As Directed
Activity Level: Out of Bed-Early Mobility
Vital Signs As Directed
Frequency: Per unit guidelines
Ot Eval And Treat Routine
Pt Eval And Treat Routine
Activity Level: Out of Bed-Early Mobility
Speech Therapy Eval & Treat Routine
05/09/25 22:00
Cefepime HCl [Maxipime] 2,000 mg IV Q8H
Famotidine [Pepcid] 20 mg PO BID
Rosuvastatin Calcium [Crestor] 10 mg PO QPM
05/10/25 05:19
Complete Blood Count/With Diff IN AM
Comprehensive Metabolic Panel IN AM
Magnesium IN AM
TSH IN AM
05/10/25 08:00
Amiodarone [Pacerone] 100 mg PO DAILY
Amlodipine [Norvasc] 5 mg PO DAILY
05/12/25 11:00
DC Protocol for Telemetry ONCE
Abnormal Lab Results
05/09/25 05/09/25
11:39 17:48
WBC 24.7 H 10^3/uL
(4.8-10.8)
RBC 3.22 L 10^6/uL
(4.70-6.10)
Hgb 10.0 L g/dL
(13.0-18.0)
Hct 30.3 L %
(39.0-52.0)
MCV 94.1 H fL
(80.0-94.0)
MCH 31.1 H pg
(27.0-31.0)
Plt Count 95 L 10^3/uL
(130-400)
Abs Neuts (Manual) 7.9 H 10^3/uL
(1.4-6.5)
Segmented Neutrophils 30 L %
(42-75)
Monocytes (Manual) 12 H %
(2-9)
Blast Cells 31 H* %
(-)
Sodium 133 L mmol/L
(135-145)
BUN 25 H mg/dl
(9-20)
Creatinine 1.4 H mg/dL
(0.7-1.3)
Glucose 160 H mg/dl
(70-99)
Alkaline Phosphatase 133 H U/L
(38-126)
Ur Occult Blood Reflex 1+ A
(Negative)
Leukocyte Esterase Rfl 1+ A
(Negative)
Urine RBC 3-6 A /HPF
(0-2)
Urine WBC (Reflex) 11-15 A /HPF
(0-5)
Urine Bacteria (Reflex) Moderate A
(Negative)
Urine Glucose 1+ A
(Negative)
Urine Albumin (Reflex) 2+ A
(Neg - Trace)
05/09/25 11:39
05/09/25 11:39
Vital Signs
Initial and Last Documented VS:
Initial Vital Signs
Temp Pulse Resp BP Pulse Ox
98.3 F 100 18 92/52 95
05/09/25 11:29 05/09/25 11:29 05/09/25 11:29 05/09/25 11:29 05/09/25 11:29
Last Documented Vital Signs
Temp Pulse Resp BP Pulse Ox
98.9 F 88 16 130/54 96
05/10/25 11:30 05/10/25 11:30 05/10/25 11:30 05/10/25 11:30 05/10/25 11:30
<Luz Marina Dooley DO, Resident - Last Filed: 05/10/25 06:08>
MDM/Problems Addressed
Differential Diagnosis Includes:
sepsis secondary to covid infection
MDM/Problems Addressed:
Will order chest x-ray, EKG, and 50 cc normal saline IV fluids. Will give vancomycin weight-based loading dose for skin lesions.
EKG shows atrial fibrillation. Chest x-ray shows no acute cardiopulmonary process.
<Luz Marina Dooley DO, Resident - Last Filed: 05/10/25 06:08>
*Pulse Oximetry
SaO2: 95
Oxygen Mode of Delivery: Room air
Patient hypoxic: no
*Critical Care Note
Total Time (30-74mins, 75-104mins- exclusive of procedures): Not Applicable
ED Attending Note
<Luz Marina Dooley DO, Resident - Last Filed: 05/10/25 06:08>
-
Portions of this chart may have been created with voice recognition software.� Occasional wrong word or��sound alike� substitutions may have occurred due to the inherent limitations of voice recognition software.
<Jose Eduardo Segovia MD - Last Filed: 05/10/25 12:40>
ED Attending Note
Patient seen and examined by attending physician: Yes
ED Attending Note:
Patient diagnosed with COVID-19 via home test 4 days ago, presents to ED secondary to worsening generalized weakness along with decreased appetite. Denies chest pain. Denies shortness of breath. Denies back pain. Denies vomiting or diarrhea. In
addition, patient reports ongoing skin lesions on his face, which is being evaluated by Dr. Templeton, that appears to be worse despite finishing antibiotics. Patient's medical history is significant for AML, currently not being treated secondary to
previous side effects from chemotherapy.
Physical Exam
General: mild distress, acutely ill. afebrile
Head: nc/at. eomi
Neck: supple. normal range of motion. tender right anterior lymph node with swelling
Heart: s1/s2 regular rate and rhythm, no murmur. equal radial pulses.
Lungs: no acute respiratory distress. clear bilaterally
Abdomen: normal bowel sounds. not tender.
Neuro: alert and oriented x 3. no focal neurological deficits
Skin: multiple lesions noted over face, with packing in one of the lesions on upper part of right cheek
Psychiatric: well kept. interactive and cooperative
Extremities: no edema. no calf tenderness.
History and exam concerning for sepsis, likely secondary to COVID-19 with evidence of dehydration. Patient will be admitted for further evaluation and treatment, with concern for potentially worsening symptoms, i.e. bacteremia, as patient is in
immunocompromised state
Discharge Plan
Departure
Patient Disposition: Admit
Date of Disposition: 05/09/25
Time of Disposition: 16:07
Presentation/result/management discussed w/ accepting MD/DO: Hospitalist
Covid-19: Confirmed COVID-19
Discharge Problem:
Acute dehydration, Sepsis, COVID-19
Interventions
Interventions:
*Risk Screen - Suicide Last Done: 05/09/25 11:29
*General Assessment Last Done: 05/09/25 11:29
*Neglect/Abuse Screening Last Done: 05/09/25 11:29
*ED- Fall Risk Assessment Last Done: 05/09/25 21:29
*ED COVID-19 Vaccine History Last Done: 05/09/25 22:02
*Nursing Disposition Last Done: 05/09/25 21:29
ED- Pulmonary Assessment Last Done: 05/09/25 19:30
Discharge Date and Time
Discharge Date/Time: 05/09/25 21:31
--- NOTE | 2025-05-09 17:51 | HPS.HSE ---
Family Physician
-
Family Physician: Tien Blake
Chief Complaint
-
malaise
History of Present Illness
85yo M with PMHx of squamous cell CA of the skin, followed by s/p multiple MOHS, Hx of Afib, HTN, AML, R sided chemo port, HLD came with 1 week of progressive throat pain and weakness. He was tested positive for COVID-19 5 days ago.
Weakness progressed to the point that he cannot eat, had episode of emesis when tried to swallow pills and barely can move. In ED seen not hypoxic but with cough, found painful lump on the R of his neck.
Medical History
Past Medical History
Past Medical History: Reports Other
Additional Past Medical History:
see above
Past Surgical History: Reports Other
Additional Past Surgical History:
see above
Social History
Tobacco: Former Smoker
Alcohol: Occasional
Drug: None
Family History
Family History: Not pertinent
Allergies / Home Medications
Allergies reflects when Allergies were last updated in [facility].
Home Medications with original date entered in [facility]
Allergy/Medication List:
Allergies
Allergy/AdvReac Type Severity Reaction Status Date / Time
abciximab (From Reopro) Allergy THROMBOCYTO Verified 05/09/25 11:29
PENIA
Home Medications
rosuvastatin 10 mg tablet 10 mg PO QPM High cholesterol 11/22/20
amlodipine 5 mg tablet 5 mg PO DAILY Blood Pressure 03/18/24
amiodarone 100 mg tablet 100 mg PO DAILY Arrhythmia 11/10/24
metoprolol tartrate 25 mg tablet 25 mg PO BID Blood Pressure 11/10/24
acetaminophen 325 mg tablet (Tylenol) 650 mg PO Q6HPRN PRN mild pain 05/09/25
doxycycline hyclate 100 mg capsule 100 mg PO BID long term acute care registered nurse 05/09/25
Review of Systems
-
History Source: Patient
A 12 point ROS was completed and negative except as noted: Yes
Constitutional: Reports Fatigue
EENT: Reports See HPI
Respiratory: Reports See HPI
Physical Exam
Vital Signs
Vital Signs
Temp Pulse Resp BP Pulse Ox
98.3 F 95 15 150/74 96
05/09/25 11:29 05/09/25 15:46 05/09/25 15:46 05/09/25 15:44 05/09/25 15:58
Physical Exam
General: No Apparent Distress, Comfortable and Conversant
HEENT: Anicteric, Moist mucous membranes and Nodules (R neck)
Respiratory: Clear; No Wheezes or Crackles
Cardiac: Regular Rhythm; No Tachycardia or Murmur
GI: Soft, Non Tender and Non Distended
Genito-urinary: No costovertebral tender
Musculoskeletal: No Clubbing, No Cyanosis and No Edema
Skin: Warm and Lesions (on face)
Neuro: Awake, Alert, Oriented and AO x 3
Psych: Calm
Laboratory Results
-
05/09/25 11:39
05/09/25 11:39
Laboratory Results
Total Bilirubin 0.5 mg/dl (0.2-1.3) 05/09/25 11:39
AST 43 U/L (17-59) 05/09/25 11:39
ALT 40 U/L (0-50) 05/09/25 11:39
Alkaline Phosphatase 133 U/L (38-126) H 05/09/25 11:39
Data Reviewed
-
Diagnostic Radiology: Report Reviewed by me
Lab Data: Labs Reviewed by me
Impression/Plan
-
A/P:
#Covid-19
no hypoxia and no signs of pneumonia on XR
with 7 days into disease - unclear benefit from Remdesivir
Not a candidate for Decadron with no hypoxia
Symptomatic mgmt
Check COVID-19 and Influenza PCR
#Sore throat with R neck lump
#cough
R chemo port without surrounding redness or pain
CT neck w/wo contrast with hydration with concern for throat infection vs neck abscess in this immunocompromised person
check for strep throat
Bcx
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
SPONSORSHIP COORDINATOR
Check legionella and Strep pneumonia urinary Ag
#AML
#Thrombocytopenia
#Leukocytosis
#Anemia
Infectious w/u - add UA
with 31% blasts
Oncology consult
follow CBC
#CKD stage 3a
Hydrate and watch Cr
#recurrent alk.phos elevation
without RUQ pain
follow LFT
#Recurrent paroxysmal Afib
Cont suppression with Amio
previously not on AC 2/2 thrombocytopenia
With plt 95K - reasonable to start heparin and get Cardio consult
Cotn rate and rhythm control
check TSH
#Malaise with ambulatory dysfunction
2/2 acute disease
PT/OT
#Squamous cell CA of the skin
with large lump on R face
no significant signs of infection
Cont to follow with Derm upon D/C
#HLD
#Essential HTN
cont home meds
DVT ppx heparin drip
Full code as discussed in details with patient
I have spent at least 76min reviewing chart, test results, communication with consultants and providing direct patient care
[2025-05-09] MEDS: NSS 500 IV (17:58)
[2025-05-09] MEDS: VANCOCIN 530 MG IV (17:58)
[2025-05-09 18:04] LABS: Urine Character Clear (Clear)
[2025-05-09 18:20] LABS: COVID-19 Antigen Negative (Negative)
[2025-05-09 18:21] LABS: Urine Squamous Cell 0-2 /LPF (Few)
[2025-05-09] MEDS: TYLENOL 650 MG PO (20:23)
[2025-05-09 20:24] LABS: APTT 42.8 Sec (23.4-35.0)
[2025-05-09] MEDS: HEPARIN 25000 UNITS/250 ML IV (23:08)
[2025-05-09] MEDS: NSS 1000 IV (23:14)
[2025-05-09] MEDS: MAXIPIME 2000 MG IV (23:23)
[2025-05-09] MEDS: STERILE WATER FOR INJECTION 10 ML IV (23:24)
[2025-05-09] MEDS: CHLORASEPTIC/SORE THROAT SPRAY 1 SPRAY PO (23:25)
[2025-05-09] MEDS: PEPCID 20 MG PO (23:25)
[2025-05-09] MEDS: CRESTOR 10 MG PO (23:25)
[2025-05-10] VITALS (10 sets, daily range): BP systolic 111–154; BP diastolic 54–66; PULSE 107; O2SAT 94; BMI 22.1
[2025-05-10 06:06] LABS: Hematocrit 23.8 % (39.0-52.0); Hemoglobin 8.0 g/dL (13.0-18.0); Mean Corp Hgb Conc. 33.6 g/dL (33.0-37.0); Mean Corpuscular Volume 93.3 fL (80.0-94.0); Platelet Count 71 10^3/uL (130-400); Red Cell Dist. Width 14.2 % (11.5-14.5)
[2025-05-10 06:20] LABS: ALT (SGPT) 38 U/L (0-50); AST (SGOT) 42 U/L (17-59); Albumin 3.1 g/dl (3.5-5.0); Alkaline Phosphatase 119 U/L (38-126); Blood Urea Nitrogen 21 mg/dl (9-20); Calcium 7.9 mg/dl (8.4-10.2); Carbon Dioxide 24 mmol/L (22-30); Chloride 103 mmol/L (98-107); Estimated Creatinine Clearance 45 ml/min; Glucose 159 mg/dl (70-99); Magnesium 1.8 mg/dl (1.6-2.3); Potassium 3.6 mmol/L (3.5-5.1); Sodium 134 mmol/L (135-145); Total Protein 5.3 g/dl (6.3-8.2); eGFR > 60.00
[2025-05-10 06:24] LABS: APTT 89.5 Sec (23.4-35.0)
[2025-05-10 06:40] LABS: Absolute Neutrophils -Man Diff 7.4 10^3/uL (1.4-6.5); Anisocytosis Slight; Hypochromasia Slight; Normal RBC Morphology No; Platelets Checked Yes; Total Cells Counted 100
[2025-05-10 06:48] LABS: TSH 1.13 uIU/ml (0.47-4.68)
[2025-05-10] MEDS: MAXIPIME 2000 MG IV ×3 (06:48→21:33)
[2025-05-10] MEDS: STERILE WATER FOR INJECTION 10 ML IV ×3 (06:48→21:33)
[2025-05-10 06:58] LABS: Fibrinogen 623 MG/DL (199-459)
[2025-05-10 07:01] LABS: Reticulocyte Count 0.7 % (0.4-2.8)
[2025-05-10 07:17] LABS: Iron 72 ug/dl (49-181); LDH 454 U/L (120-246)
[2025-05-10 07:26] LABS: Total Iron Binding Capacity 212 ug/dl (261-462)
[2025-05-10 07:32] LABS: Ferritin 816.0 ng/ml (17.9-464.0)
--- NOTE | 2025-05-10 07:56 | W.PN.HOSP.TC ---
Today's Communication/Plan
-
See PN
Assessment / Plan
Assessment / Plan
85yo M with PMHx of squamous cell CA of the skin, followed by s/p multiple MOHS, Hx of Afib, HTN, AML, R sided chemo port, HLD came with 1 week of progressive throat pain and weakness. He was tested positive for COVID-19 5 days ago.
Admitted for viral pneumonia with possible superimposed bacterial pneumonia. Also Afib reoccurence and blast cells. Anticoagulation stopped with worsening thrombocytopenia and anemia. started on Decadron and Remdesivir 2/2 findings of pneumonia on
CT and hypoxia on the second day of admission
A/P:
#Acute hypoxic insufficency 2/2 Covid-19
developed hypoxia on the second day and signs of viral pneumonia on CT
remdesivir to be started as BLAKE resolved and new findings
Decadron with hypoxia
Symptomatic mgmt
COVID-19 neg in hospital, however reported pos at home. Cont enhancd isolation
Influenza PCR NEG
#Sore throat with R neck lump
#cough
#Viral COVID-19 pneumonia vs superimposed bacterial CAP with unspecified organism
R chemo port without surrounding redness or pain
CT neck w/wo contrast showed b/l ground glass opacitied on lung apex and An enlarged right level IIa cervical lymph node measures 1.4 x 1.2 cm
check for strep throat
Bcx NTD
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
legionella and Strep pneumonia urinary Ag neg
Sputum Cx
antitussives
#Most likely asymptomatic bacteriuria
no urinary symptoms
Ucx pending
#AML
#Thrombocytopenia
#Leukocytosis
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
#An enlarged right level IIa cervical lymph node measures 1.4 x 1.2 cm
with 31% blasts
Oncology consult
follow CBC
Anemia w/u, check LDH, haptoglobin. WIth normal retics - concern for bone marrow dysfunction to play significant role
Check FOBT
#BLAKE on admission with CKD stage 3a
cr baseline 1.0
Hydrate and watch Cr
#recurrent alk.phos elevation
without RUQ pain
follow LFT
#Recurrent paroxysmal Afib
Cont suppression with Amio
previously not on AC 2/2 thrombocytopenia
due to drop in Hgb and plt -heparin stopped since patient remained in SR over the further hospital stay
Cotn rate and rhythm control
TSH WNL
#Malaise with ambulatory dysfunction
2/2 acute disease
PT/OT
#Squamous cell CA of the skin
with large lump on R face
no significant signs of infection
Cont to follow with Derm upon D/C
#HLD
#Essential HTN
cont home meds
DVT ppx SCDs
Full code as discussed in details with patient
I have spent at least 56min reviewing chart, test results, communication with consultants and providing direct patient care
Anticipated Discharge: > 48 hours
Subjective/Interval History
-
Date of Service: May 10, 2025
Objective Data
-
Labs:
Laboratory Results
05/09/25 05/10/25
19:57 05:19
WBC 25.6 H
Hgb 8.0 L
Hct 23.8 L
Plt Count 71 L D
APTT 42.8 H 89.5 H
Sodium 134 L
Potassium 3.6
Chloride 103
Carbon Dioxide 24
BUN 21 H
Creatinine 1.1
Glucose 159 H
Calcium 7.9 L
Total Bilirubin 0.5
AST 42
ALT 38
Alkaline Phosphatase 119
Vital Signs:
Vital Signs
Temp Pulse Resp BP Pulse Ox
98.4 F 93 15 133/59 95
05/10/25 07:00 05/10/25 07:00 05/10/25 07:00 05/10/25 07:00 05/10/25 07:00
Review of Systems
-
History Source: Patient
All other systems: Reviewed and negative
EENT: Reports Sore Throat
Respiratory: Reports Cough
Physical Exam
-
General: Comfortable
HEENT: Normocephalic
Respiratory: Negative Wheezes
Cardiac: Regular Rhythm
GI: Soft, Nontender and Nondistended
Skin: Lesions (multiple on face with large R face lump)
Neuro: Awake, Alert, Oriented and AO x 3
Psych: Calm
[2025-05-10 08:03] LABS: Folate 13.5 ng/ml (2.76-20); Vitamin B12 320 pg/ml (239-931)
--- NOTE | 2025-05-10 08:07 | PHA.VAN.IN ---
Addendum entered and electronically signed by Celia Leiva RPH 05/10/25 08:31:
Agree with assessment and plan
Original Note:
Assessment
- Assessment
Renal Function: Appears similar to baseline
Concomitant Antimicrobials: cefepime
AUC Dosing Plan
- Dosing Variables
Dosing Weight (kg): 65.816
Dosing CrCl (ml/min): 45
Vd coefficient (L/kg): 0.7
- Empiric Dosing
Initial / Loading Dose: received 1500mg load at 1704 last night
Maintenance Regimen: 1000mg q24h, first dose at 1200 today, then daily at 0600
Estimated AUC (mcg*h/mL): 531
Estimated Peak (mcg*h/mL): 34.3
Estimated Trough (mcg/ml): 13.1
Estimated Half Life (H): 16.6
- Monitoring
No levels ordered at this time: consider within next few days
Pharmacokinetics Vancomycin I
- -
Patient Age: 85
Patient Sex: Male
Vancomycin Day #: 1
Indication: Skin And Soft Tissue
Requesting Provider: Dr. Segovia
Height / Weight:
Height 5 ft 8 in
Actual Weight 65.816 kg
Pertinent Past Medical History: AML, squamous cell carcinoma
- Vital Signs / Lab Results
Temp Pulse Resp BP Pulse Ox
98.4 F 93 15 133/59 95
05/10/25 07:00 05/10/25 07:00 05/10/25 07:00 05/10/25 07:00 05/10/25 07:00
Lab Results - Hematology
05/09/25 05/10/25
11:39 05:19
WBC 24.7 H 25.6 H
Band Neutrophils 2 0
Lab Results - Chemistry
05/09/25 05/10/25
11:39 05:19
BUN 25 H 21 H
Creatinine 1.4 H 1.1
Estimated Creat Clear 45
Albumin 3.7 3.1 L
Lab Results - Urine
05/09/25
17:48
Urine Nitrite (Reflex) Negative
Leukocyte Esterase Rfl 1+ A
Urine WBC (Reflex) 11-15 A
Ur Squamous Epith Cells 0-2
Urine Bacteria (Reflex) Moderate A
Microbiology Results
05/09/25 17:48 Influenza Types A & B (BRANDON) - Final
Nasal Swab Negative for Influenza A & B, NAAT
Negative results must be combined with clinical observations
and patient history.
Nucleic Acid Amplification test (NAAT)performed on the
[employer]PASS platform.
05/09/25 17:49 Legionella Urinary Antigen - Final
Urine Negative for Legionella pneumophila Serogroup 1 antigen.
A negative result does not rule out the possiblity of
Legionella infection due to other serogroups or species of
Legionella. Clinical correlation is recommended.
Streptococcus pneumoniae Antigen (M - Final
Negative for Streptococcus pneumoniae antigen.
A negative result does not exclude infection with
Streptococcus pneumoniae. Clinical correlation is
recommended.
[2025-05-10] MEDS: NORVASC 5 MG PO (09:24)
[2025-05-10] MEDS: PACERONE 100 MG PO (09:25)
[2025-05-10] MEDS: VEKLURY 250 MG IV (09:25)
[2025-05-10] MEDS: DECADRON 6 MG IV (09:26)
--- NOTE | 2025-05-10 09:42 | CON.ONC ---
Consultation
-
Date Consultation Requested: 05/09/25
Date Consultation Performed: 05/10/25
Requesting Provider: Dr. Burton Colin
Performing Provider: Dr. Genna Tomlinson
Reason for Consultation: Hx of AML now 31% blasts with leukocytosis and thrombocytopenia
Impression
Impression
AML -Blasts 31%
Leukocytosis in setting of excess blasts and covid
Multifactorial anemia in setting of AML and large volume resuscitation
Thrombocytopenia
Paroxsysmal a.fib
LBAKE
Acute hypoxic insufficiency secondary to COVID
Squamous cell carcinoma of the skin
Plan
Plan
AML with blasts 31%
Leukocytosis in setting of excess blasts and covid
--Although elevated WBC can be due to covid, blasts 31% suggestive of recurrence of AML - will start hydrea 500 mg daily
--On anti-virals and broad spectrum antibiotics
--Monitor for tumor lysis syndrome with daily LDH and uric acid
--Follows with Dr. Linder who will be in tomorrow and can eval further
Multi-factorial anemia in setting of AML and dilution
--Baseline around 10, today 8 - Likely dilutional
--LDH only mildly elevated, haptoglobin pending
--Monitor and transfuse for hg <7
Thrombocytopenia
--Ptl drop from 95 on admission to 75
--Was on heparin drip for a.fib now d/c with platelet drop
--suspect dilutional but can monitor
--Okay for anticoagulation if ptl >50,000 and no signs of active bleed
Vit B12 deficiency
--Does endorse some numbness and tingling in feet bilaterally
--Start supplement
Hx squamous cell skin cancer
--f/u outpatient with Dr. Templeton
Full Code
Patient History
History of Present Illness
85-year-old male with past medical history of paroxysmal atrial fibrillation, hypertension, AML with right-sided Chemo-Port, hyperlipidemia, history of squamous cell carcinoma status post multiple Mohs with Dr. Templeton presented to the ED for
progressive sore throat and weakness. He tested Positive for COVID 5 days prior. Over the weakness became progressive to the point where he was not able to eat and is barely able to move. He endorsed 1 episode of vomiting when he tried to swallow
pills due to the pain. He endorses a cough, fever, chills, nausea, vomiting, diarrhea and decrease in appetite. He also have significant facial lesions with most recent Mohs surgery on his face about 1 month ago. Of note, patient had not been
able to take any of his medications prior to admission due to his sore throat and lack of energy and suspected he may be in atrial fibrillation.
He follows with Dr. Linder for treatment of AML. He has a right sided chemo port with no significant erythema surrounding the site. He received his last chemo treatment in November and gets blood work done every few months. His last bone biopsy in
11/26/24 revealed remission.
In the ED, he did spike a fever of 101.7, blood pressure 150/74, heart rate 95, respiratory rate 15, 96% on room air later transition to 2 L. WBC 24.7, 31 % blasts, hemoglobin 10, platelets 95, sodium 133, creatinine 1.4, Phos 133. EKG consistent
with A-fib. Chest x-ray was not concerning for pneumonia. Cultures were sent and he was started on broad-spectrum antibiotics and a heparin drip considering he was in atrial fibrillation. Later neck CT revealed ground glass opacities in bilateral
upper lobes consistent with viral pneumonia and an enlarged right cervical lymph node. He was started on antivirals. Hematology oncology was consulted for history of AML, increased blasts and thrombocytopenia.
Past-Medical/Surgical History
Past medical history: Paroxysmal Atrial fibrillation, hypertension, AML, hyperlipidemia, squamous cell carcinoma, CAD s/p multiple stents, CKD3a, psoriasis, BPH
Past surgical history: Squamous cell carcinoma status post multiple loads with Dr. Templeton, right femur fracture repair, cardiac cath, tonsillectomy
Patient Medication
�Medication �Instructions �Recorded �Confirmed �Last Taken �Type
rosuvastatin 10 mg tablet 10 mg PO QPM High cholesterol 11/22/20 05/09/25 05/08/25 History
amlodipine 5 mg tablet 5 mg PO DAILY Blood Pressure 03/18/24 05/09/25 05/08/25 History
amiodarone 100 mg tablet 100 mg PO DAILY Arrhythmia 11/10/24 05/09/25 05/08/25 History
metoprolol tartrate 25 mg tablet 25 mg PO BID Blood Pressure 11/10/24 05/09/25 05/08/25 History
acetaminophen 325 mg tablet 650 mg PO Q6HPRN PRN mild pain 05/09/25 05/09/25 05/09/25 History
(Tylenol)
doxycycline hyclate 100 mg capsule 100 mg PO BID custodial 05/09/25 05/09/25 05/08/25 History
Active Medications
Generic Name Dose Route Start Last Admin
Trade Name Freq PRN Reason Stop Dose Admin
Acetaminophen 650 mg 05/09/25 20:10 05/09/25 20:23
Acetaminophen 325 Mg Tablet PO 06/06/25 20:09 650 mg
Q4HPRN PRN Administration
mild pain/GIRARD/temp> 100.4F
Amiodarone HCl 100 mg 05/10/25 08:00 05/10/25 09:25
Amiodarone 100 Mg Tablet PO 06/07/25 07:59 100 mg
DAILY JULIO Administration
Amlodipine Besylate 5 mg 05/10/25 08:00 05/10/25 09:24
Amlodipine 5 Mg Tablet PO 06/07/25 07:59 5 mg
DAILY JULIO Administration
Bisacodyl 10 mg 05/09/25 21:37
Bisacodyl 10 Mg Rectal Suppository RECTAL 06/06/25 21:36
[id number] PRN
constipation
Cefepime HCl 2,000 mg 05/09/25 22:00 05/10/25 06:48
Cefepime Hcl 2,000 Mg/12.5 Ml Vial IV 2,000 mg
Q8H JULIO Administration
Dexamethasone Sodium Phosphate 6 mg 05/10/25 08:00 05/10/25 09:26
Dexamethasone 4 Mg/Ml 1 Ml Vial IV 05/20/25 07:59 6 mg
DAILY JULIO Administration
Famotidine 20 mg 05/10/25 09:02
Famotidine 20 Mg Tablet PO 06/06/25 21:59
DAILY JULIO
Guaifenesin 100 mg 05/10/25 02:01
Guaifenesin Oral Solution (200 Mg/10 Ml) Cup PO 06/07/25 02:00
Q4HPRN PRN
cough
Remdesivir 200 mg/ Sodium 250 mls @ 125 mls/hr 05/10/25 10:00 05/10/25 09:25
Chloride IV 05/10/25 11:59 250 mls
ONCE ONE Administration
Protocol
Remdesivir 100 mg/ Sodium 250 mls @ 250 mls/hr 05/11/25 12:00
Chloride IV 05/14/25 12:59
DAILY@1200 JULIO
Vancomycin HCl 1 gram in 200 mls @ 200 mls/hr 05/10/25 12:00
Vancocin IV
DAILY@0600 JULIO
Protocol
Phenol 0 spray 05/09/25 22:36 05/09/25 23:25
Chloraseptic (1.4% Phenol) Throat [place] PO 06/06/25 22:35 1 spray
Q2HPRN PRN Administration
sore throat
Polyethylene Glycol 17 grams 05/09/25 21:37
Polyethylene Glycol Powder 17 Grams Packet PO 06/06/25 21:36
DAILYPRN PRN
constipation
Rosuvastatin Calcium 10 mg 05/09/25 22:00 05/09/25 23:25
Rosuvastatin (Crestor) 10 Mg Tablet PO 06/06/25 21:59 10 mg
QPM JLUIO Administration
Senna/Docusate Sodium 1 tablet 05/09/25 21:37
Docusate W/Senna (Sylvie-Colace) Tablet PO 06/06/25 21:36
BIDPRN PRN
constipation
Sodium Chloride 0 flush 05/09/25 21:00
Sodium Chloride 0.9% (Flush) Syringe IV 06/06/25 20:59
PER PROTOCOL JULIO
Sterile Water 10 ml 05/09/25 22:00 05/10/25 06:48
Sterile Water For Injection 10 Ml Vial IV 06/06/25 21:59 10 ml
Q8H JULIO Administration
Review of Systems
-
He was febrile overnight. On 2L oxygen. Complains of SOB and diarrhea.
History Source: Patient
Constitutional: Reports Fever and Chills
EENT: Reports Sore Throat
Respiratory: Reports Cough and Trouble Breathing
GI: Reports Abdominal Pain, Nausea and Diarrhea
Neuro: Reports No Symptoms
Physical Exam
-
General: Appears Chronically Ill
HEENT: Other (Large mass approx 2cm in diameter 1cm in height proximal to right ear. Stated it was impacted gauze to cover hole from prior mohs surgery. Multiple skin lesions on face. )
Cardiology: Irregular Rate/Rhythm
Pulmonary: Other (RLL crackles )
GI: Soft and Normal Bowel Sounds
Musculoskeletal: No Cyanosis and No Edema
Skin: Warm
Labs
Lab Results
WBC 25.6 10^3/uL (4.8-10.8) H 05/10/25 05:19
RBC 2.55 10^6/uL (4.70-6.10) L 05/10/25 05:19
Hgb 8.0 g/dL (13.0-18.0) L 05/10/25 05:19
Hct 23.8 % (39.0-52.0) L 05/10/25 05:19
MCV 93.3 fL (80.0-94.0) 05/10/25 05:19
MCH 31.4 pg (27.0-31.0) H 05/10/25 05:19
MCHC 33.6 g/dL (33.0-37.0) 05/10/25 05:19
RDW 14.2 % (11.5-14.5) 05/10/25 05:19
Plt Count 71 10^3/uL (130-400) L D 05/10/25 05:19
MPV 10.2 fL (7.4-10.4) 05/10/25 05:19
Creatinine 1.1 mg/dL (0.7-1.3) 05/10/25 05:19
Vital Signs
Vital Signs
Temp Pulse Resp BP Pulse Ox
98.4 F 93 15 133/59 95
05/10/25 07:00 05/10/25 09:25 05/10/25 07:00 05/10/25 09:25 05/10/25 07:00
[2025-05-10] MEDS: ROBITUSSIN 100 MG PO (09:47)
[2025-05-10] MEDS: TYLENOL 650 MG PO (09:48)
[2025-05-10] MEDS: PEPCID PO (10:23)
--- NOTE | 2025-05-10 11:30 | PTOTSP ---
Speech Language Pathology
Pt seen for clinical bedside swallow evaluation. Pt reported slight improvement in throat pain since admission, but that pain is still significant. P.O. trials of puree and thin liquids provided. Oral phase WNL with limited consistencies trialed.
Significant facial grimacing noted with all P.O. intake with report of significant pain. Reported pharyngeal residue with puree. Delayed cough noted with thin liquids.
Recommend:
(1) NPO
(2) Flexible endoscopic evaluation of swallowing (FEES) 05/11 to further evaluate pharyngeal phase of swallow function
(3) Oral care 4x/day with suctioning as needed
(4) Allow sips of water post oral care per Aspiration Risk Hydration Protocol (ARHP)
(5) Non-oral meds if possible
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
--- NOTE | 2025-05-10 11:47 | WOUNDNOTE ---
R CHEEK WITH XEROFORM DRESSING SUTURED IN PLACE.
--- NOTE | 2025-05-10 11:47 | WOUNDNOTE ---
R SIDE OF FACE
--- NOTE | 2025-05-10 11:48 | WOUNDNOTE ---
L EAR AND FACE
--- NOTE | 2025-05-10 11:49 | WOUNDNOTE ---
KB RN NOTE: Patient admitted with acute dehydration, sepsis and COVID +, PMH: ER-Patient is a 85-year-old male of AML not currently on treatment, presenting with throat pain shortness of breath cough and a positive home COVID test on .
Patient had surgery on R cheek near ear by Dr. Templeton for squamous cell cancer. Xeroform dressing sutured in place from Dr. Templeton, patient had follow up apt today. [place] skin visible on medial edge, no drainage, dressing remains in place.
Scattered skin cancer scabs on ears and face, patient will follow up with Dr. Templeton post discharge. Patient able to stand up on own, sacrum blanchable pink, using air cushion in chair. Updated nurse Enedina and mi sign off.
[2025-05-10] MEDS: HYDREA 500 MG PO (12:27)
[2025-05-10] MEDS: D5/0.9% SODIUM CHLORIDE 1000 IV (12:27)
[2025-05-10] MEDS: VANCOCIN 200 IV (12:27)
[2025-05-10] MEDS: VITAMIN B-12 1000 MCG PO (12:27)
--- NOTE | 2025-05-10 12:50 | CON.ID ---
Consultation
-
Date/Time Consultation Requested: May 09, 2025 1730
Date/Time Consultation Performed: May 10, 2025 1250
Requesting Provider: Dr. Burton Colin
Performing Provider: Dr. Nadia Becerra
Reason for Consultation: AML, COVID+
Chief Complaint / Past History
Chief Complaint
Weakness
History of Present Illness
History obtained from the patient and from his at bedside. 85-year-old male with history of CAD, atrial fibrillation, CKD3, AML, completed chemo in November, presented to the hospital May 09 due to fever and weakness. Patient started feeling
unwell last FridayMay 03 with headache, cough, body aches, sore throat. His went out and bought COVID 19 antigen kit on , May 05. Both he and his tested positive. His PCP recommended supportive care. However patient has
not improved with increasing weakness, poor appetite, difficulty swallowing due to sore throat, mild fever. Patient refused to come to the hospital last week. Yesterday he finally agreed. In the ER temperature 101.7. White count 24.7 with 31%
blasts. COVID-negative. Influenza negative. Urine culture negative. Chest x-ray negative. CT of the neck shows enlarged right cervical lymph node, groundglass opacities upper lobes consistent with viral pneumonia. He was placed on cefepime and
vancomycin yesterday. Today remdesivir started. Patient reports he had his COVID-vaccine in the fall. No known ill contacts that he is aware of. He did that did have most surgery on his face about 2 weeks ago placed on doxycycline. No urine
symptoms. Had diarrhea yesterday, none today. Continues to cough with white phlegm production. Continues have sore throat, poor appetite.
Past History
Additional Past Medical History:
AML, completed decitabine, venotoclax in 11/2024
Coronary Artery Disease s/p Stents
Paroxysmal Atrial Fibrillation
Essential Hypertension
Hyperlipidemia
CKD Stage IIIA
Psoriasis
BPH
Skin squamous cell ca excision/MOHs
Right Femur Fracture Repair
Allergy History:
abciximab (From Reopro) Allergy (Verified 05/09/25 11:29)
THROMBOCYTOPENIA
Medications Reviewed: Yes
Current Antibiotics:
Vancomycin
Cefepime
Remdesivir (d1)
Social History
Tobacco: Former Smoker
Alcohol: Occasional
Drug: None
Personal:
Living: With Family
Family History
Family History: Not Pertinent
Review of Systems
Review of Systems
General: Fever, Chills and Change in Appetite
HEENT: Headache and Pharyngitis
Cardiovascular: Negative Chest Pain or Edema
Respiratory: Cough; Negative Sputum Production
Gasteroenterology: Nausea; Negative Vomiting or Diarrhea
Genital / Urological: Negative Dysuria or Flank Pain
Endocrine: Weakness and Fatigue
Neurological: Negative Dizziness
All systems: All other systems were reviewed and were negative
Vital Signs
Temp Pulse Resp BP Pulse Ox
98.9 F 88 16 130/54 96
05/10/25 11:30 05/10/25 11:30 05/10/25 11:30 05/10/25 11:30 05/10/25 11:30
Selected Entries
05/09/25
20:10 05/10/25
03:00
Temp 101.7 F H 101.4 F H
Physical Exam
Physical Exam
Constitutional: Acutely Ill
Eyes: No Conjunctival Hemorrhage and Sclera Anicteric
Oral: No Ulcers
Cardiovascular: Regular Rate and S1/S2
Pulmonary: Coarse (Right base coarse crackles)
Gastrointestinal: Soft, Non Tender, Non Distended and Normal Bowel Sounds
Genito-Urinary: Negative CVA Tenderness
Extremities: Edema
Musculoskeletal: Negative Spinal Tenderness
Wound: Other (Right cheek: wound packing in place, multiple scattered dry lesions on face)
Neurological: AO x 3
Lines: Port (RCW no erythema)
Lab / Diagnostic Study Results
05/10/25 05:19
05/10/25 05:19
Total Counted 100 05/10/25 05:19
Abs Neuts (Manual) 7.4 10^3/uL (1.4-6.5) H 05/10/25 05:19
Segmented Neutrophils 29 % (42-75) L 05/10/25 05:19
Band Neutrophils 0 % (0-3) 05/10/25 05:19
Lymphocytes (Manual) 15 % (20-51) L 05/10/25 05:19
Ur Squamous Epith Cells 0-2 /LPF (Few) 05/09/25 17:48
Microbiology Results
Micro:
05/10/25 12:40 Respiratory Culture - Pending
Sputum Gram Stain - Pending
05/10/25 12:40 Streptococcus Screen (SANGITA) - Pending
Throat/Pharynx Streptococcus Rapid Screen - Pending
05/09/25 17:48 Urine Culture - Final
Urine NO GROWTH
05/09/25 17:48 Influenza Types A & B (BRANDON) - Final
Nasal Swab Negative for Influenza A & B, NAAT
Negative results must be combined with clinical observations
and patient history.
Nucleic Acid Amplification test (NAAT)performed on the
[employer] platform.
05/09/25 17:49 Legionella Urinary Antigen - Final
Urine Negative for Legionella pneumophila Serogroup 1 antigen.
A negative result does not rule out the possiblity of
Legionella infection due to other serogroups or species of
Legionella. Clinical correlation is recommended.
Streptococcus pneumoniae Antigen (M - Final
Negative for Streptococcus pneumoniae antigen.
A negative result does not exclude infection with
Streptococcus pneumoniae. Clinical correlation is
recommended.
05/09/25 17:48 Blood Culture - Pending
Blood/Venous
05/09/25 17:48 Blood Culture - Pending
Blood/Venous
05/09/25 CXR: No acute cardiopulmonary process.
05/09/[address]: Bilateral upper lobe groundglass opacities. Enlarged right cervical lymph node.
Assessment / Plan
# COVID19 infection, immunocompromised host
- sxs onset 05/03.
- Outpt COVID + 05/05.
- Out of window for effective treatment. DC Remdesivir.
- Supportive care
- COVID neg here 05/09. Repeat COVID test tomorrow, if remains neg, dc COVID isolation.
# Fever
# Leukocytosis with 31% blast
# Thrombocytopenia
# AML s/p treatment 11/2024, ?now with relapse
- Ucx neg.
- CXR no consolidation
- Blood cx's pending
-Repeat CXR in am
- Can continue Vanco/cefepime for now pending blood cx.
- Trend temps/wbc
Care Review
Total Time Spent with Patient (in minutes): 75
--- NOTE | 2025-05-10 16:31 | CM ---
Chart reviewed and patient admitted with COVID, patient is currently requiring 2 liters of oxygen, patient lives with spouse is independent with adl's and ambulation, no dme, plan is to home when stable, no needs.
PCP: Dr Blake
Pharmacy: [facility] in [place].
[2025-05-10] MEDS: CRESTOR PO (18:40)
[2025-05-11] MEDS: D5/0.9% SODIUM CHLORIDE 1000 IV ×2 (02:05→17:04)
[2025-05-11 02:59] VITALS: BP 121/58
[2025-05-11] MEDS: MAXIPIME 2000 MG IV ×3 (05:57→21:49)
[2025-05-11] MEDS: STERILE WATER FOR INJECTION 10 ML IV ×3 (05:58→21:49)
[2025-05-11] MEDS: VANCOCIN 200 IV (05:58)
[2025-05-11 06:40] LABS: COVID-19 Antigen Negative (Negative)
[2025-05-11 06:49] LABS: ALT (SGPT) 57 U/L (0-50); AST (SGOT) 56 U/L (17-59); Albumin 3.1 g/dl (3.5-5.0); Alkaline Phosphatase 103 U/L (38-126); Blood Urea Nitrogen 21 mg/dl (9-20); Calcium 8.4 mg/dl (8.4-10.2); Carbon Dioxide 24 mmol/L (22-30); Chloride 107 mmol/L (98-107); Estimated Creatinine Clearance 62 ml/min; Glucose 162 mg/dl (70-99); LDH 554 U/L (120-246); Potassium 3.3 mmol/L (3.5-5.1); Sodium 136 mmol/L (135-145); Total Protein 5.5 g/dl (6.3-8.2); Uric Acid 3.7 mg/dl (3.5-8.5); eGFR > 60.00
[2025-05-11 07:00] VITALS: BP 96/56
[2025-05-11 07:11] LABS: Hematocrit 23.3 % (39.0-52.0); Hemoglobin 8.0 g/dL (13.0-18.0); Mean Corp Hgb Conc. 34.3 g/dL (33.0-37.0); Mean Corpuscular Volume 92.5 fL (80.0-94.0); Red Cell Dist. Width 14.1 % (11.5-14.5)
--- NOTE | 2025-05-11 07:53 | W.PN.HOSP.TC ---
Today's Communication/Plan
-
FEES today
Continue ABx
Assessment / Plan
Assessment / Plan
Impression:
85yo M with PMHx of squamous cell CA of the skin, followed by s/p multiple MOHS, Hx of Afib, HTN, AML, R sided chemo port, HLD came with 1 week of progressive throat pain and weakness. He was tested positive for COVID-19 5 days ago.
Admitted for viral pneumonia with possible superimposed bacterial pneumonia. Also Afib reoccurence and blast cells. Anticoagulation stopped with worsening thrombocytopenia and anemia. started on Decadron and Remdesivir 2/2 findings of pneumonia on
CT and hypoxia on the second day of admission
Patient developed hypoxia on the second day and signs of viral pneumonia on CT
initially remdesivir started, seen by infectious disease recommend to discontinue remdesivir and continue vancomycin and cefepime.
In place speech, underwent FEES.
Assessment/plan:
Severe sepsis with acute organ dysfunction.
Patient meets sepsis criteria on admission in form of leukocytosis, tachycardia, fever.
Source of infection viral pneumonia/superimposed bacterial pneumonia.
Acute organ dysfunction in form of acute respiratory failure
Acute hypoxic insufficency 2/2 Covid-19/superimposed bacterial pneumonia
Patient developed hypoxia on the second day and signs of viral pneumonia on CT
remdesivir started, seen by infectious disease recommend to discontinue remdesivir and continue vancomycin and cefepime
Decadron with hypoxia
Symptomatic mgmt
COVID-19 neg in hospital, however reported pos at home. Cont enhancd isolation
Influenza PCR NEG
#Sore throat with R neck lump
#cough
#Viral COVID-19 pneumonia vs superimposed bacterial CAP with unspecified organism
R chemo port without surrounding redness or pain
CT neck w/wo contrast showed b/l ground glass opacitied on lung apex and An enlarged right level IIa cervical lymph node measures 1.4 x 1.2 cm
check for strep throat
Bcx NTD
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
[employer]
legionella and Strep pneumonia urinary Ag neg
Sputum Cx
antitussives
Most likely asymptomatic bacteriuria
no urinary symptoms
Ucx pending
Dysphagia.
Speech consult
Fees
Hypokalemia.
Replace and continue to monitor.
#AML
#Thrombocytopenia
#Leukocytosis
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
#An enlarged right level IIa cervical lymph node measures 1.4 x 1.2 cm
with 31% blasts
Oncology consult, note appreciated
follow CBC
Anemia w/u, check LDH, haptoglobin. WIth normal retics - concern for bone marrow dysfunction to play significant role
BLAKE on admission with CKD stage 3a
Creatinine improved
Elevated alk phos
improved
Paroxysmal A-fib
Currently sinus rhythm.
Continue amiodarone
#Malaise with ambulatory dysfunction
2/2 acute disease
PT/OT
#Squamous cell CA of the skin
with large lump on R face
no significant signs of infection
Cont to follow with Derm upon D/C
History of hyperlipidemia.
Continue home meds.
History of hypertension.
Continue home med
CODE STATUS: DNR
DVT prophylaxis: SCD
Diet: NPO
Total time spent on today's encounter was 65 minutes which included time spent in counseling the patient/family regarding diagnosis and treatment plan as listed above, goals of care, and symptom management. Case was discussed with nursing staff,
specialists, and care coordinators/case management. All labs and imaging personally reviewed by me. Remainder the time spent in detailed review of previous records, lab data, imaging, and other medical provider documentation.
Anticipated Discharge: > 48 hours
Subjective/Interval History
-
Date of Service: May 11, 2025
Patient seen and examined at bedside.
Overall improving but still coughing.
Was seen by speech for FEES.
COVID isolation discontinued.
Objective Data
-
Labs:
Laboratory Results
05/11/25
06:10
WBC 25.1 H
Hgb 8.0 L
Hct 23.3 L
Plt Count Pending
Sodium 136
Potassium 3.3 L
Chloride 107
Carbon Dioxide 24
BUN 21 H
Creatinine 0.8
Glucose 162 H
Calcium 8.4
Total Bilirubin 0.5
AST 56
ALT 57 H
Alkaline Phosphatase 103
Vital Signs:
Vital Signs
Temp Pulse Resp BP Pulse Ox
98.1 F 90 16 121/58 95
05/11/25 02:59 05/11/25 02:59 05/11/25 02:59 05/11/25 02:59 05/11/25 02:59
I&O
05/10/25 05/11/25 05/12/25
06:59 06:59 06:59
Intake Total 1210 / 1210
Output Total 600 / 600
Balance 610 / 610
Physical Exam
-
General: Well Developed, Well Nourished, No Apparent Distress and Comfortable
HEENT: Normocephalic, Atraumatic, Moist Mucous Membranes, No Ptosis, PERRLA and Nose Appears Normal
Respiratory: Rales, Rhonchi, Crackles and Non Labored Respirations
Cardiac: Regular Rhythm and S1/S2
Breast: Deferred by me
GI: Soft, Nontender, Nondistended and Normal Bowel Sounds
Genito-urinary: No Costovertebral Tender
Musculoskeletal: No Clubbing, No Cyanosis and No Edema
Skin: Lesions (dressing/ lump on R face)
Neuro: Awake, Alert, Oriented, AO x 3 and No Motor Deficits
Psych: Calm
Data Reviewed
-
Diagnostic Radiology: Image personally visualized and interpreted and Report Reviewed by me
CT Scan: Image personally visualized and interpreted and Report Reviewed by me
Ultrasound: Image personally visualized and interpreted and Report Reviewed by me
MRI: Image personally visualized and interpreted and Report Reviewed by me
Medical Tests (Nuc Med, Echo etc): Image personally visualized and interpreted and Report Reviewed by me
Labs: Labs Reviewed by me
Old Records: Reviewed
--- NOTE | 2025-05-11 08:01 | W.PN.ONC ---
Today's Communication / Plan
-
Monitor CBC, LDH and uric acid
Hold anti-coagulation for ptl <50,000
Now DNR after discussion with Dr. Linder
Impression
Impression
AML Recurrence -Blasts 31%
Leukocytosis in setting of excess blasts and covid
Multifactorial anemia in setting of AML and large volume resuscitation
Thrombocytopenia
Paroxsysmal a.fib
BLAKE
Acute hypoxic insufficiency secondary to COVID
Squamous cell carcinoma of the skin
Plan
Plan
AML recurrence with blasts 31%
Leukocytosis in setting of excess blasts and covid
--hydrea 500 mg daily
--On anti-virals and broad spectrum antibiotics
--Trend LDH and uric acid for tumor lysis syndrome
Multi-factorial anemia in setting of AML and dilution
--Hg Stable
--LDH only mildly elevated, haptoglobin pending
--Monitor and transfuse for hg <7
Thrombocytopenia
--Ptl drop from 95 > 71 > 51
--suspect multifactorial in setting of AML, dilution and starting hydroxyurea - suspect it may continue to downtrend with hydroxyurea
--Transfuse ptl for <10 or if active bleed <40.
--Recommend hold anticoagulation for ptl <50,000
Vit B12 deficiency
--Start supplement goal >400
Hx squamous cell skin cancer
--f/u outpatient with Dr. Templeton
Full Code
Subjective/Objective
Subjective/Objective
Feeling better than yesterday. Still with cough, congestion, SOB and sore throat, but improved.
HR irregularly irregular
RRL crackles
Soft, non-distended, non-tender abdomen with BSx4
No peripheral edema or cyanosis
Vital Signs:
Vital Signs
Temp Pulse Resp BP Pulse Ox
98.1 F 90 16 121/58 95
05/11/25 02:59 05/11/25 02:59 05/11/25 02:59 05/11/25 02:59 05/11/25 02:59
Lab Results:
Laboratory Data
WBC 25.1 10^3/uL (4.8-10.8) H 05/11/25 06:10
Hgb 8.0 g/dL (13.0-18.0) L 05/11/25 06:10
Plt Count 71 10^3/uL (130-400) L D 05/10/25 05:19
APTT 89.5 Sec (23.4-35.0) H 05/10/25 05:19
eGFR > 60.00 05/11/25 06:10
Orders
Orders
Orders From Last 24 Hours
05/10/25 12:00
Cyanocobalamin [Vitamin B-12] 1,000 mcg PO DAILY
[2025-05-11 08:08] LABS: Platelet Count 51 10^3/uL (130-400)
--- NOTE | 2025-05-11 08:50 | PHA.VAN.FU ---
Addendum entered and electronically signed by Celia Leiva [facility] 05/11/25 10:11:
Agree with assessment and plan
Original Note:
Vancomycin Assessment / Plan
- Assessment
Renal Function: SCR Decreasing
WBC's are: Stable
In the past 24 hrs, patient has been: Afebrile
Concomitant Antimicrobials: cefpime
- Dosing Plan
Continue: 1000mg q24h
- Monitoring Plan
No level(s) ordered at this time: consider level within next few days
- Follow Up
Pharmacy will continue to follow.
Vancomycin Follow UP
- -
Patient Age: 85
Patient Sex: Male
Vancomycin Day #: 2
Indication: Skin And Soft Tissue
Requesting Provider: Dr. Segovia/Dr. Becerra
Height / Weight:
Height 5 ft 8 in
Actual Weight 65.816 kg
Pertinent Past Medical History: AML, squamous cell carcinoma
- Vital Signs / Lab Results
Temp Pulse Resp BP Pulse Ox
97.7 F 92 20 96/56 94
05/11/25 07:00 05/11/25 07:00 05/11/25 07:00 05/11/25 07:00 05/11/25 07:00
Lab Results - Hematology
05/09/25 05/10/25 05/11/25
11:39 05:19 06:10
WBC 24.7 H 25.6 H 25.1 H
Band Neutrophils 2 0
Lab Results - Chemistry
05/09/25 05/10/25 05/11/25
11:39 05:19 06:10
BUN 25 H 21 H 21 H
Creatinine 1.4 H 1.1 0.8
Estimated Creat Clear 45 62
Albumin 3.7 3.1 L 3.1 L
Microbiology Results
05/09/25 17:48 Blood Culture - Preliminary
Blood/Venous No Growth in 24 hours- Final report to follow
05/09/25 17:48 Blood Culture - Preliminary
Blood/Venous No Growth in 24 hours- Final report to follow
05/10/25 12:40 Gram Stain - Preliminary
Sputum
05/10/25 12:40 Streptococcus Rapid Screen - Final
Throat/Pharynx Rapid Strep Screen (Group A) Negative
05/09/25 17:48 Urine Culture - Final
Urine NO GROWTH
05/09/25 17:48 Influenza Types A & B (BRANDON) - Final
Nasal Swab Negative for Influenza A & B, NAAT
Negative results must be combined with clinical observations
and patient history.
Nucleic Acid Amplification test (NAAT)performed on the
[employer] platform.
05/09/25 17:49 Legionella Urinary Antigen - Final
Urine Negative for Legionella pneumophila Serogroup 1 antigen.
A negative result does not rule out the possiblity of
Legionella infection due to other serogroups or species of
Legionella. Clinical correlation is recommended.
Streptococcus pneumoniae Antigen (M - Final
Negative for Streptococcus pneumoniae antigen.
A negative result does not exclude infection with
Streptococcus pneumoniae. Clinical correlation is
recommended.
[2025-05-11 08:56] LABS: Absolute Neutrophils -Man Diff 3.7 10^3/uL (1.4-6.5)
[2025-05-11 09:01] LABS: Anisocytosis Slight; Hypochromasia 1+; Normal RBC Morphology No; Ovalocytes FEW; Platelets Checked Yes; Polychromasia 1+; Total Cells Counted 100
--- NOTE | 2025-05-11 10:48 | PTCARENOTE ---
Per conversation with Susi in infection prevention, patient can come off respiratory illness precautions.
[2025-05-11 11:00] VITALS: BP 95/61
--- NOTE | 2025-05-11 12:20 | CM ---
Addendum entered by Dorothea Grubbs 05/11/25 12:21:
Physial therapy recommend skilled v's home care will await final decision. Patient is COVID +.
Original Note:
Plan home with spouse when stable.
Plan; Home with spouse.
[2025-05-11] MEDS: DECADRON 6 MG IV (12:24)
--- NOTE | 2025-05-11 12:51 | PN.CDI ---
CDI
- -
CDI:
Physician Documentation Request
Admit Date: 05/09/25 18:18
Dear Doctor Valentín,
Please review the following and provide your response in the progress notes.
Clinical Indicators:
- 05/11 PN indicates:
- 'acute respiratory failure'
- 'Acute hypoxic insufficency'
- Documented VS 85% on room air, 2L O2 with SpO2 92-94%
- Patient admit for sepsis due to Covid
Please clarify which of the following accurately represents the patient's respiratory status:
Acute hypoxic respiratory failure
Acute hypoxic respiratory insufficiency
Hypoxia
Other
Additional information for Respiratory Failure:
Recognized criteria for Respiratory Failure (Source: Ailyn SAdi Man. 2018August 18.
Documentation tips: Acute Respiratory Failure, The Hospitalist.)
ABGs: (1 or more) Symptoms Please indicate type if known
1. p)2 <60 or RA SPO2 <91% on RA 1. Tachypnea, SOB, dyspnea Hypoxic
2. pCO2 >45 and pH <7.35 2. Use of accessory muscles Hypercapnic
3. pO2 decrease of pCO2 increase by 3. Pallor or cyanosis Hypoxic and Hypercapnic
10 mmHg from baseline if known 4. Anxiety or restlessness Unable to determine
4. P/F Ratio (pO2/FiO2)nless than 300 5. Unable to speak in full sentences
Use of terms such as suspected, likely, concern for, or probable (associated with a specific diagnosis that is being evaluated, monitored, or treated as if it exists) are acceptable and can be coded in the inpatient setting, when documented at the
time of discharge.
Thank you,
Tarik Lemus RN
CDI Specialist
Please use your independent medical judgment in providing your response.
--- NOTE | 2025-05-11 13:15 | W.PN.ID1 ---
Date of Service
Date of Service: May 11, 2025
Today's Communication
See below.
Assessment / Plan
# Fever - resolving
# Leukocytosis with 65% blast
# Thrombocytopenia
# Sore throat
# AML s/p treatment 11/2024, ? relapse given increasing blast
- Ucx neg.
- CXR no consolidation
- Blood cx's neg to date.
-Sputum: usual respiratory chris
-DC Vancomycin
- Continue empiric cefepime for now
- Repeat CXR.
# COVID19 infection, immunocompromised host
- sxs onset 05/03.
- Outpt COVID + 05/05.
- Viral pneumonia
- Out of window for effective treatment. DC Remdesivir.
- Supportive care
- COVID neg here 05/09 and 05/11 .
- DC COVID isolation
Chief Complaint
-: Fever and Other (Recent COVID)
Subjective / Review of Systems
Remains weak, cough, poor appetite
Vital Signs / Physical Exam
Vital Signs
Vital Signs
Temp Pulse Resp BP Pulse Ox
97.7 F 97 16 95/61 94
05/11/25 11:00 05/11/25 11:00 05/11/25 11:00 05/11/25 11:00 05/11/25 11:00
Physical Exam
Constitutional: Acutely Ill and Chronically Ill
Eyes: No Conjunctival Hemorrhage and Sclera Anicteric
Lymph Nodes: Lymphadenopathy (Right cervical LAD)
Cardiovascular: Regular Rate and S1/S2
Pulmonary: Clear; Negative Wheezes
Gastrointestinal: Soft, Non Tender, Non Distended and Normal Bowel Sounds
Genito-Urinary: Negative CVA Tenderness
Extremities: Edema (BLE)
Neurological: AO x 3
Lines: Port (RCW no erythema)
Objective Data
Lab Data
Lab Results
05/11/25 06:10
05/11/25 06:10
APTT 89.5 Sec (23.4-35.0) H 05/10/25 05:19
Estimated Creat Clear 62 ml/min 05/11/25 06:10
Total Bilirubin 0.5 mg/dl (0.2-1.3) 05/11/25 06:10
AST 56 U/L (17-59) 05/11/25 06:10
ALT 57 U/L (0-50) H 05/11/25 06:10
Alkaline Phosphatase 103 U/L (38-126) 05/11/25 06:10
Most recent labs reviewed.
Micro Results:
05/10/25 12:40 Streptococcus Screen (SANGITA) - Preliminary
Throat/Pharynx Culture in Progress
Streptococcus Rapid Screen - Final
Rapid Strep Screen (Group A) Negative
05/10/25 12:40 Respiratory Culture - Preliminary
Sputum Usual Respiratory Chris
Gram Stain - Preliminary
05/09/25 17:48 Blood Culture - Preliminary
Blood/Venous No Growth in 24 hours- Final report to follow
05/09/25 17:48 Blood Culture - Preliminary
Blood/Venous No Growth in 24 hours- Final report to follow
05/09/25 17:48 Urine Culture - Final
Urine NO GROWTH
05/09/25 17:48 Influenza Types A & B (BRANDON) - Final
Nasal Swab Negative for Influenza A & B, NAAT
Negative results must be combined with clinical observations
and patient history.
Nucleic Acid Amplification test (NAAT)performed on the
[employer] platform.
05/09/25 17:49 Legionella Urinary Antigen - Final
Urine Negative for Legionella pneumophila Serogroup 1 antigen.
A negative result does not rule out the possiblity of
Legionella infection due to other serogroups or species of
Legionella. Clinical correlation is recommended.
Streptococcus pneumoniae Antigen (M - Final
Negative for Streptococcus pneumoniae antigen.
A negative result does not exclude infection with
Streptococcus pneumoniae. Clinical correlation is
recommended.
05/09/25 CXR: No acute cardiopulmonary process.
05/09/[address]: Bilateral upper lobe groundglass opacities. Enlarged right cervical lymph node.
[2025-05-11] MEDS: KCL ELIXIR 20 MEQ PO (14:33)
[2025-05-11] MEDS: PACERONE 100 MG PO (14:41)
[2025-05-11] MEDS: VITAMIN B-12 1000 MCG PO (14:41)
[2025-05-11] MEDS: PEPCID 20 MG PO (14:41)
[2025-05-11] MEDS: HYDREA PO (14:41)
[2025-05-11] MEDS: NORVASC 5 MG PO (14:42)
[2025-05-11 15:00] VITALS: BP 126/95
[2025-05-11] MEDS: CRESTOR 10 MG PO (17:04)
[2025-05-11 19:00] VITALS: BP 103/60
[2025-05-11 22:55] VITALS: BP 101/57
--- NOTE | 2025-05-11 23:41 | PTCARENOTE ---
Patient placed on 2lpm nasal cannula for decreased Sats to 86 while sleeping. Patient is 94% on 2lpm.
[2025-05-12] VITALS (7 sets, daily range): BP systolic 96–119; BP diastolic 57–69; PULSE 92; O2SAT 95
[2025-05-12] MEDS: TYLENOL 650 MG PO (04:33)
[2025-05-12 05:37] LABS: Blood Urea Nitrogen 23 mg/dl (9-20); Calcium 8.5 mg/dl (8.4-10.2); Carbon Dioxide 25 mmol/L (22-30); Chloride 109 mmol/L (98-107); Estimated Creatinine Clearance 62 ml/min; Glucose 174 mg/dl (70-99); LDH 589 U/L (120-246); Potassium 3.4 mmol/L (3.5-5.1); Sodium 138 mmol/L (135-145); Uric Acid 3.5 mg/dl (3.5-8.5); eGFR > 60.00
[2025-05-12] MEDS: D5/0.9% SODIUM CHLORIDE IV (07:41)
[2025-05-12] MEDS: D5/0.9% SODIUM CHLORIDE 1000 IV ×2 (08:39→22:10)
[2025-05-12 08:49] LABS: Hematocrit 25.1 % (39.0-52.0); Hemoglobin 8.5 g/dL (13.0-18.0); Mean Corp Hgb Conc. 33.9 g/dL (33.0-37.0); Mean Corpuscular Volume 92.3 fL (80.0-94.0); Platelet Count 49 10^3/uL (130-400); Red Cell Dist. Width 14.9 % (11.5-14.5)
--- NOTE | 2025-05-12 08:53 | W.PN.ONC ---
Today's Communication / Plan
-
Monitor CBC
Cont hydroxyurea
Impression
Impression
AML Recurrence -Blasts 65%
Leukocytosis in setting of excess blasts and covid
Multifactorial anemia in setting of AML and large volume resuscitation
Thrombocytopenia in setting of AML, hydroxyurea
Paroxsysmal a.fib
BLAKE
Acute hypoxic insufficiency secondary to COVID
Squamous cell carcinoma of the skin
Plan
Plan
AML recurrence with blasts 31%
Leukocytosis in setting of excess blasts and covid
--hydrea 500 mg daily
--On broad spectrum antibiotics - vanc and remdesivir d/c per ID
--LDH slightly trending upward but uric acid stable - monitor for tumor lysis syndrome
Multi-factorial anemia in setting of AML and dilution
--Hg Stable
--LDH only mildly elevated, haptoglobin elevated ruling out hemolytic process
--Monitor and transfuse for hg <7
Thrombocytopenia
--Ptl drop from 95 > 71 > 51 >49
--suspect multifactorial in setting of AML, dilution and starting hydroxyurea - suspect it may continue to downtrend with hydroxyurea
--Transfuse ptl for <10 or if active bleed <40.
--Recommend hold anticoagulation for ptl <50,000
Vit B12 deficiency
--Start supplement goal >400
Hx squamous cell skin cancer
--f/u outpatient with Dr. Templeton
Full Code
Subjective/Objective
Subjective/Objective
Feeling improved from yesterday. Throat still very sore. Still on 2L O2.
HR irregularly irregular
Crackles in R and L lung bases
Ab soft, non-tender, nondistended, normal BSx4
No peripheral edema or cyanosis
Vital Signs:
Vital Signs
Temp Pulse Resp BP Pulse Ox
97.6 F 82 20 109/57 95
05/12/25 02:57 05/12/25 02:57 05/12/25 02:57 05/12/25 02:57 05/12/25 02:57
Lab Results:
Laboratory Data
WBC 37.0 10^3/uL (4.8-10.8) H 05/12/25 08:28
Hgb 8.5 g/dL (13.0-18.0) L 05/12/25 08:28
Plt Count 49 10^3/uL (130-400) L 05/12/25 08:28
APTT 89.5 Sec (23.4-35.0) H 05/10/25 05:19
eGFR > 60.00 05/12/25 04:56
Orders
Orders
Orders From Last 24 Hours
05/12/25 07:55
Add On- LAB Urgent
05/13/25 06:00
Complete Blood Count/With Diff IN AM
05/14/25 06:00
Complete Blood Count/With Diff IN AM
05/15/25 06:00
Complete Blood Count/With Diff IN AM
05/16/25 06:00
Complete Blood Count/With Diff IN AM
05/17/25 06:00
Complete Blood Count/With Diff IN AM
[2025-05-12 09:59] LABS: Absolute Neutrophils -Man Diff 8.8 10^3/uL (1.4-6.5); Platelets Checked Yes
[2025-05-12 10:00] LABS: Anisocytosis Slight; Normal RBC Morphology No; Polychromasia Slight; Total Cells Counted 100
--- NOTE | 2025-05-12 10:15 | PTOTSP ---
Speech Language Pathology
Pt seen for dysphagia tx. Voice improved. Pt also reported significant improvement in sore throat/odynophagia. No need for expectoration of mucus this date, which is an improvement. Reviewed results/recommendations from FEES completed yesterday.
Pt reported being sensate to dysphagia and pharyngeal residue on FEES. Provided P.O. trials of ice chips, thin liquids via single cup sips, and puree. Adequate oral phase noted with limited consistencies trialed. No overt signs of aspiration or
any changes in vocal quality. Pt reported significantly improved ease of swallowing and minimal pharyngeal retention, which he reported cleared with a cued liquid wash.
Recommend:
(1) Initiate cautious IDDSI Level 4 (puree) and thin liquids
(2) Aspiration precautions: sit upright, slow rate, small single sips, take break if fatigue or coughing noted
(3) Meds as best tolerated
(4) ROOM CLERK to continue to follow
--- NOTE | 2025-05-12 10:34 | W.PN.HOSP.TC ---
Addendum entered and electronically signed by Omid Laura MD 05/12/25 10:49:
Acute hypoxic respiratory failure
Original Note:
Today's Communication/Plan
-
Bedside swallow eval
Continue cefepime
Dexamethasone IV
Assessment / Plan
Assessment / Plan
Impression:
85yo M with PMHx of squamous cell CA of the skin, followed by s/p multiple MOHS, Hx of Afib, HTN, AML, R sided chemo port, HLD came with 1 week of progressive throat pain and weakness. He was tested positive for COVID-19 5 days ago.
Admitted for viral pneumonia with possible superimposed bacterial pneumonia. Also Afib reoccurence and blast cells. Anticoagulation stopped with worsening thrombocytopenia and anemia. started on Decadron and Remdesivir 2/2 findings of pneumonia on
CT and hypoxia on the second day of admission
Patient developed hypoxia on the second day and signs of viral pneumonia on CT
initially remdesivir started, seen by infectious disease recommend to discontinue remdesivir and continue vancomycin and cefepime.
In place speech, underwent FEES.
Assessment/plan:
Severe sepsis with acute organ dysfunction.
Patient meets sepsis criteria on admission in form of leukocytosis, tachycardia, fever.
Source of infection viral pneumonia/superimposed bacterial pneumonia.
Acute organ dysfunction in form of acute respiratory failure
Appreciate infectious disease input, discontinue vancomycin and continue cefepime
Acute hypoxic insufficency 2/2 Covid-19/superimposed bacterial pneumonia
Patient developed hypoxia on the second day and signs of viral pneumonia on CT
remdesivir started, seen by infectious disease recommend to discontinue remdesivir and continue vancomycin and cefepime
Decadron with hypoxia
Symptomatic mgmt
COVID-19 neg in hospital, however reported pos at home. Cont enhancd isolation
Influenza PCR NEG
#Sore throat with R neck lump
#cough
#Viral COVID-19 pneumonia vs superimposed bacterial CAP with unspecified organism
R chemo port without surrounding redness or pain
CT neck w/wo contrast showed b/l ground glass opacitied on lung apex and An enlarged right level IIa cervical lymph node measures 1.4 x 1.2 cm
check for strep throat
Bcx NTD
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
[employer]
legionella and Strep pneumonia urinary Ag neg
Sputum Cx
antitussives
Most likely asymptomatic bacteriuria
no urinary symptoms
Ucx pending
Dysphagia.
Speech consult
Fees
Hypokalemia.
Replace and continue to monitor.
#AML
#Thrombocytopenia
#Leukocytosis
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
#An enlarged right level IIa cervical lymph node measures 1.4 x 1.2 cm
with 31% blasts
Oncology consult, note appreciated
follow CBC
Anemia w/u, check LDH, haptoglobin. WIth normal retics - concern for bone marrow dysfunction to play significant role
BLAKE on admission with CKD stage 3a
Creatinine improved
Elevated alk phos
improved
Paroxysmal A-fib
Currently sinus rhythm.
Continue amiodarone
#Malaise with ambulatory dysfunction
2/2 acute disease
PT/OT
#Squamous cell CA of the skin
with large lump on R face
no significant signs of infection
Cont to follow with Derm upon D/C
History of hyperlipidemia.
Continue home meds.
History of hypertension.
Continue home med
CODE STATUS: DNR
DVT prophylaxis: SCD
Diet: NPO
Disposition: Bedside swallow eval
Total time spent on today's encounter was 65 minutes which included time spent in counseling the patient/family regarding diagnosis and treatment plan as listed above, goals of care, and symptom management. Case was discussed with nursing staff,
specialists, and care coordinators/case management. All labs and imaging personally reviewed by me. Remainder the time spent in detailed review of previous records, lab data, imaging, and other medical provider documentation.
Anticipated Discharge: 24 - 48 hours
Subjective/Interval History
-
Date of Service: May 12, 2025
Feeling better today, no chest pain or shortness of breath.
Objective Data
-
Labs:
Laboratory Results
05/12/25 05/12/25
04:56 08:28
WBC 37.0 H
Hgb 8.5 L
Hct 25.1 L
Plt Count 49 L
Sodium 138
Potassium 3.4 L
Chloride 109 H
Carbon Dioxide 25
BUN 23 H
Creatinine 0.8
Glucose 174 H
Calcium 8.5
Vital Signs:
Vital Signs
Temp Pulse Resp BP Pulse Ox
97 F 80 16 109/61 95
05/12/25 07:00 05/12/25 07:00 05/12/25 07:00 05/12/25 07:00 05/12/25 07:00
I&O
05/11/25 05/12/25 05/13/25
06:59 06:59 06:59
Intake Total 1210 / 1210 1600 / 1600
Output Total 600 / 600 550 / 550
Balance 610 / 610 1050 / 1050
Physical Exam
-
General: Well Developed, Well Nourished, No Apparent Distress and Comfortable
HEENT: Normocephalic, Atraumatic, Moist Mucous Membranes, No Ptosis, PERRLA and Nose Appears Normal
Respiratory: Rales, Rhonchi, Crackles and Non Labored Respirations
Cardiac: Regular Rhythm and S1/S2
Breast: Deferred by me
GI: Soft, Nontender, Nondistended and Normal Bowel Sounds
Genito-urinary: No Costovertebral Tender
Musculoskeletal: No Clubbing, No Cyanosis and No Edema
Skin: Lesions (dressing/ lump on R face)
Neuro: Awake, Alert, Oriented, AO x 3 and No Motor Deficits
Psych: Calm
Data Reviewed
-
Diagnostic Radiology: Image personally visualized and interpreted and Report Reviewed by me
CT Scan: Image personally visualized and interpreted and Report Reviewed by me
Ultrasound: Image personally visualized and interpreted and Report Reviewed by me
MRI: Image personally visualized and interpreted and Report Reviewed by me
Medical Tests (Nuc Med, Echo etc): Image personally visualized and interpreted and Report Reviewed by me
Labs: Labs Reviewed by me
Old Records: Reviewed
[2025-05-12] MEDS: HYDREA PO (10:52)
--- NOTE | 2025-05-12 10:52 | W.PN.ID1 ---
Date of Service
Date of Service: May 12, 2025
Today's Communication
- DC cefepime and observe.
Assessment / Plan
# Fever - resolved
# Leukocytosis with 65% blast
# Thrombocytopenia
# Sore throat
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
- Ucx neg.
- Blood cx's neg to date.
-Sputum: usual respiratory chris
- Repeat CXR without new opacities
- DC cefepime and observe
# COVID19 infection, immunocompromised host
- sxs onset 05/03.
- Outpt COVID + 05/05.
- Viral pneumonia
- Out of window for effective treatment. DC Remdesivir.
- Supportive care
- COVID neg here 05/09 and 05/11 .
- DC COVID isolation
Chief Complaint
-: Other (Recent COVID)
Subjective / Review of Systems
Throat pain better today.
Cough stable.
Vital Signs / Physical Exam
Vital Signs
Vital Signs
Temp Pulse Resp BP Pulse Ox
97 F 80 16 109/61 95
05/12/25 07:00 05/12/25 07:00 05/12/25 07:00 05/12/25 07:00 05/12/25 07:00
Physical Exam
Constitutional: Chronically Ill
Eyes: No Conjunctival Hemorrhage and Sclera Anicteric
Lymph Nodes: Lymphadenopathy (Right cervical LAD)
Cardiovascular: Regular Rate and S1/S2
Pulmonary: Clear; Negative Wheezes
Gastrointestinal: Soft, Non Tender, Non Distended and Normal Bowel Sounds
Genito-Urinary: Negative CVA Tenderness
Extremities: Edema (BLE)
Wound: Other (Multiple skin lesions on face; right cheek MOHs with packing)
Neurological: AO x 3
Lines: Port (RCW no erythema)
Objective Data
Lab Data
Lab Results
05/12/25 08:28
05/12/25 04:56
APTT 89.5 Sec (23.4-35.0) H 05/10/25 05:19
Estimated Creat Clear 62 ml/min 05/12/25 04:56
Total Bilirubin 0.5 mg/dl (0.2-1.3) 05/11/25 06:10
AST 56 U/L (17-59) 05/11/25 06:10
ALT 57 U/L (0-50) H 05/11/25 06:10
Alkaline Phosphatase 103 U/L (38-126) 05/11/25 06:10
Most recent labs reviewed.
Micro Results:
05/10/25 12:40 Respiratory Culture - Final
Sputum Usual Respiratory Chris
Gram Stain - Final
05/10/25 12:40 Streptococcus Screen (SANGITA) - Final
Throat/Pharynx No Beta Hemolytic Streptococci Isolated
Streptococcus Rapid Screen - Final
Rapid Strep Screen (Group A) Negative
05/09/25 17:48 Blood Culture - Preliminary
Blood/Venous No Growth in 48 hours- Final report to follow
05/09/25 17:48 Blood Culture - Preliminary
Blood/Venous No Growth in 48 hours- Final report to follow
05/09/25 17:48 Urine Culture - Final
Urine NO GROWTH
05/09/25 17:48 Influenza Types A & B (BRANDON) - Final
Nasal Swab Negative for Influenza A & B, NAAT
Negative results must be combined with clinical observations
and patient history.
Nucleic Acid Amplification test (NAAT)performed on the
[employer] platform.
05/09/25 17:49 Legionella Urinary Antigen - Final
Urine Negative for Legionella pneumophila Serogroup 1 antigen.
A negative result does not rule out the possiblity of
Legionella infection due to other serogroups or species of
Legionella. Clinical correlation is recommended.
Streptococcus pneumoniae Antigen (M - Final
Negative for Streptococcus pneumoniae antigen.
A negative result does not exclude infection with
Streptococcus pneumoniae. Clinical correlation is
recommended.
05/11/25 CXR: Ill-defined area of interstitial/groundglass opacity within the left midlung which may correspond to known area of scarring and bronchiectasis, however this opacity appears more prominent compared to prior studies.
05/09/25 CXR: No acute cardiopulmonary process.
05/09/[address]: Bilateral upper lobe groundglass opacities. Enlarged right cervical lymph node.
[2025-05-12] MEDS: MAXIPIME 2000 MG IV (10:53)
[2025-05-12] MEDS: STERILE WATER FOR INJECTION 10 ML IV (10:53)
[2025-05-12] MEDS: DECADRON 6 MG IV (10:57)
[2025-05-12] MEDS: NORVASC 5 MG PO (10:58)
[2025-05-12] MEDS: PEPCID 20 MG PO (10:59)
[2025-05-12] MEDS: PACERONE 100 MG PO (10:59)
[2025-05-12] MEDS: VITAMIN B-12 1000 MCG PO (10:59)
[2025-05-12] MEDS: KCL ELIXIR 40 MEQ PO (13:35)
[2025-05-12] MEDS: CRESTOR 10 MG PO (17:22)
[2025-05-12] MEDS: FLUSH (NSS) 1 FLUSH IV (22:11)
[2025-05-13] VITALS (7 sets, daily range): BP systolic 98–123; BP diastolic 57–80; PULSE 109; O2SAT 93
[2025-05-13 04:49] LABS: Blood Urea Nitrogen 23 mg/dl (9-20); Calcium 8.3 mg/dl (8.4-10.2); Carbon Dioxide 24 mmol/L (22-30); Chloride 108 mmol/L (98-107); Estimated Creatinine Clearance 71 ml/min; Glucose 183 mg/dl (70-99); LDH 914 U/L (120-246); Potassium 3.3 mmol/L (3.5-5.1); Sodium 137 mmol/L (135-145); Uric Acid 3.4 mg/dl (3.5-8.5); eGFR > 60.00
[2025-05-13 05:07] LABS: Hematocrit 24.6 % (39.0-52.0); Hemoglobin 8.4 g/dL (13.0-18.0); Mean Corp Hgb Conc. 34.1 g/dL (33.0-37.0); Mean Corpuscular Volume 91.8 fL (80.0-94.0); Platelet Count 44 10^3/uL (130-400); Red Cell Dist. Width 14.6 % (11.5-14.5)
[2025-05-13 07:58] LABS: Absolute Neutrophils -Man Diff 2.0 10^3/uL (1.4-6.5)
[2025-05-13 08:01] LABS: Hypochromasia 1+; Normal RBC Morphology No; Platelets Checked Yes
[2025-05-13 08:02] LABS: Total Cells Counted 100
--- NOTE | 2025-05-13 09:11 | W.PN.ONC ---
Today's Communication / Plan
-
d/c dexamethasone
increase hydroxyurea to 500 BID
add acyclovir 800 BID
Monitor LDH, uric acid and BMP for tumor lysis syndrome
Impression
Impression
AML Recurrence -Blasts 80%
Leukocytosis in setting of excess blasts and covid
Multifactorial anemia in setting of AML and large volume resuscitation
Thrombocytopenia in setting of AML, hydroxyurea
Paroxsysmal a.fib
BLAKE
Acute hypoxic insufficiency secondary to COVID
Squamous cell carcinoma of the skin
Significant increase in WBC and Blasts overnight. Increased concerns for tumor lysis syndrome with WBC >50 and blasts now 80%. He will require AML treatment outpatient once medically stable. There is some concern that WBC increase could be related
to steroids.
Plan
Plan
AML recurrence with blasts 80%
Leukocytosis in setting of excess blasts and covid
--hydrea 500 mg daily -> transition to 500 BID with increase in blasts, d/c prednisone to help rule out if contributing factor to WBC increase
--Antivirals and cefepime d/c per ID -> add acyclovir 800 BID prophylactic chemo dose
--LDH trending upward but uric acid stable - monitor for tumor lysis syndrome
Pharyngeal erythema and significant swelling seen on FEES per speech eval
--Speech stated almost vesicular/white spots in throat when visualizing through FEES
--Concerns that AML or other infx could be source outside of COVID as he has been covid (-) since hospital stay
--Acyclovir 800 BID
--Appreciate ID
Multi-factorial anemia in setting of AML and dilution
--Hg Stable
--LDH uptrending, haptoglobin elevated ruling out hemolytic process
--Monitor and transfuse for hg <7
Thrombocytopenia
--Ptl drop from 95 > 71 > 51 >49 >44
--suspect multifactorial in setting of AML, dilution and starting hydroxyurea - suspect it may continue to downtrend with hydroxyurea
--Transfuse ptl for <10 or if active bleed <40.
--Recommend hold anticoagulation for ptl <50,000
Vit B12 deficiency
--Start supplement goal >400
Hx squamous cell skin cancer
--f/u outpatient with Dr. Templeton
Full Code
Subjective/Objective
Subjective/Objective
Vital Signs:
Vital Signs
Temp Pulse Resp BP Pulse Ox
97.6 F 98 20 123/66 94
05/13/25 03:22 05/13/25 03:22 05/13/25 03:22 05/13/25 03:22 05/13/25 03:22
Lab Results:
Laboratory Data
WBC 51.7 10^3/uL (4.8-10.8) H* 05/13/25 03:39
Hgb 8.4 g/dL (13.0-18.0) L 05/13/25 03:39
Plt Count 44 10^3/uL (130-400) L 05/13/25 03:39
APTT 89.5 Sec (23.4-35.0) H 05/10/25 05:19
eGFR > 60.00 05/13/25 03:39
Orders
Orders
Orders From Last 24 Hours
05/13/25 03:39
Complete Blood Count/With Diff IN AM
Manual Differential Routine
05/14/25 06:00
Complete Blood Count/With Diff IN AM
05/15/25 06:00
Complete Blood Count/With Diff IN AM
05/16/25 06:00
Complete Blood Count/With Diff IN AM
05/17/25 06:00
Complete Blood Count/With Diff IN AM
[2025-05-13] MEDS: PACERONE 100 MG PO (09:13)
[2025-05-13] MEDS: NORVASC 5 MG PO (09:13)
[2025-05-13] MEDS: PEPCID 20 MG PO (09:24)
[2025-05-13] MEDS: HYDREA 500 MG PO (09:24)
[2025-05-13] MEDS: TYLENOL 650 MG PO (09:24)
[2025-05-13] MEDS: VITAMIN B-12 1000 MCG PO (09:25)
[2025-05-13] MEDS: DECADRON 6 MG IV (09:25)
[2025-05-13] MEDS: MIRALAX 17 GRAMS PO (09:30)
--- NOTE | 2025-05-13 12:00 | W.PN.HOSP.TC ---
Today's Communication/Plan
-
Discontinue dexamethasone.
Monitor leukocytosis.
increased hydroxyurea
Assessment / Plan
Assessment / Plan
Impression:
85yo M with PMHx of squamous cell CA of the skin, followed by s/p multiple MOHS, Hx of Afib, HTN, AML, R sided chemo port, HLD came with 1 week of progressive throat pain and weakness. He was tested positive for COVID-19 5 days ago.
Admitted for viral pneumonia with possible superimposed bacterial pneumonia. Also Afib reoccurence and blast cells. Anticoagulation stopped with worsening thrombocytopenia and anemia. started on Decadron and Remdesivir 2/2 findings of pneumonia on
CT and hypoxia on the second day of admission
Patient developed hypoxia on the second day and signs of viral pneumonia on CT
initially remdesivir started, seen by infectious disease recommend to discontinue remdesivir and continue vancomycin and cefepime.
In place speech, underwent FEES.
Patient finally passed a bedside swallow eval, started on pur�ed diet.
Discussed Methasone discontinued
Added acyclovir
Infectious disease discontinued cefepime
Assessment/plan:
Severe sepsis with acute organ dysfunction.
Patient meets sepsis criteria on admission in form of leukocytosis, tachycardia, fever.
Source of infection viral pneumonia/superimposed bacterial pneumonia.
Acute organ dysfunction in form of acute respiratory failure
Appreciate infectious disease input, discontinue vancomycin and continue cefepime
Later cefepime discontinued, patient was started on acyclovir.
Acute hypoxic failure 2/2 Covid-19/superimposed bacterial pneumonia
Patient developed hypoxia on the second day and signs of viral pneumonia on CT
remdesivir started, seen by infectious disease recommend to discontinue remdesivir and continue vancomycin and cefepime
Decadron with hypoxia
Symptomatic mgmt
COVID-19 neg in hospital, however reported pos at home. Cont enhancd isolation
Influenza PCR NEG
#Sore throat with R neck lump
#cough
#Viral COVID-19 pneumonia vs superimposed bacterial CAP with unspecified organism
R chemo port without surrounding redness or pain
CT neck w/wo contrast showed b/l ground glass opacitied on lung apex and An enlarged right level IIa cervical lymph node measures 1.4 x 1.2 cm
check for strep throat
Bcx NTD
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
DIE KEEPER
legionella and Strep pneumonia urinary Ag neg
Sputum Cx
antitussives
05/13
Antibiotics continued, dexamethasone discontinued.
Isolation discontinued.
Most likely asymptomatic bacteriuria
UTI ruled out
Dysphagia.
Pur�ed
Hypokalemia.
Replace and continue to monitor.
#AML
#Thrombocytopenia
#Leukocytosis
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
#An enlarged right level IIa cervical lymph node measures 1.4 x 1.2 cm
with 31% blasts
Oncology consult, note appreciated
follow CBC
Anemia w/u, check LDH, haptoglobin. WIth normal retics - concern for bone marrow dysfunction to play significant role
05/13
Worsening leukocytosis and placed overnight.
Oncology recommending to discontinue dexamethasone.
Increase hydroxyurea to 500 twice daily.
Added acyclovir
BLAKE on admission with CKD stage 3a
Creatinine improved
Elevated alk phos
improved
Paroxysmal A-fib
Currently sinus rhythm.
Continue amiodarone
#Malaise with ambulatory dysfunction
2/2 acute disease
PT/OT
#Squamous cell CA of the skin
with large lump on R face
no significant signs of infection
Cont to follow with Derm upon D/C
History of hyperlipidemia.
Continue home meds.
History of hypertension.
Continue home med
CODE STATUS: DNR
DVT prophylaxis: SCD
Diet: Pur�ed
Disposition: Discontinue dexamethasone.
Monitor leukocytosis.
continue hydroxyurea
Total time spent on today's encounter was 65 minutes which included time spent in counseling the patient/family regarding diagnosis and treatment plan as listed above, goals of care, and symptom management. Case was discussed with nursing staff,
specialists, and care coordinators/case management. All labs and imaging personally reviewed by me. Remainder the time spent in detailed review of previous records, lab data, imaging, and other medical provider documentation.
Anticipated Discharge: > 48 hours
Subjective/Interval History
-
Date of Service: May 13, 2025
Overall feeling tired but tolerated to pur�ed diet, no chest pain, still coughing and having shortness of breath.
Objective Data
-
Labs:
Laboratory Results
05/13/25
03:39
WBC 51.7 H*
Hgb 8.4 L
Hct 24.6 L
Plt Count 44 L
Sodium 137
Potassium 3.3 L
Chloride 108 H
Carbon Dioxide 24
BUN 23 H
Creatinine 0.7
Glucose 183 H
Calcium 8.3 L
Vital Signs:
Vital Signs
Temp Pulse Resp BP Pulse Ox
97.8 F 117 20 102/65 94
05/13/25 07:00 05/13/25 09:13 05/13/25 07:00 05/13/25 09:13 05/13/25 07:00
I&O
05/12/25 05/13/25 05/14/25
06:59 06:59 06:59
Intake Total 1600 / 1600 690 / 690 840 / 840
Output Total 550 / 550 875 / 875
Balance 1050 / 1050 -185 / -185 840 / 840
Physical Exam
-
General: Well Developed, Well Nourished, No Apparent Distress and Comfortable
HEENT: Normocephalic, Atraumatic, Moist Mucous Membranes, No Ptosis, PERRLA and Nose Appears Normal
Respiratory: Rales, Rhonchi, Crackles and Non Labored Respirations
Cardiac: Regular Rhythm and S1/S2
Breast: Deferred by me
GI: Soft, Nontender, Nondistended and Normal Bowel Sounds
Genito-urinary: No Costovertebral Tender
Musculoskeletal: No Clubbing, No Cyanosis and No Edema
Skin: Lesions (dressing/ lump on R face)
Neuro: Awake, Alert, Oriented, AO x 3 and No Motor Deficits
Psych: Calm
Data Reviewed
-
Diagnostic Radiology: Image personally visualized and interpreted and Report Reviewed by me
CT Scan: Image personally visualized and interpreted and Report Reviewed by me
Ultrasound: Image personally visualized and interpreted and Report Reviewed by me
MRI: Image personally visualized and interpreted and Report Reviewed by me
Medical Tests (Nuc Med, Echo etc): Image personally visualized and interpreted and Report Reviewed by me
Labs: Labs Reviewed by me
Old Records: Reviewed
[2025-05-13] MEDS: KCL 160 MEQ IV (12:53)
--- NOTE | 2025-05-13 13:07 | W.PN.ID1 ---
Date of Service
Date of Service: May 13, 2025
Today's Communication
ID will sign off.
Assessment / Plan
# Fever - resolved
# Leukocytosis with 80% blast
# Thrombocytopenia
# AML s/p treatment 11/2024 now with relapse
- Ucx neg.
- Blood cx's neg to date.
-Sputum: usual respiratory chris
- Repeat CXR without new opacities
- observe off abx
# COVID19 infection, immunocompromised host
- sxs onset 05/03.
- Outpt COVID + 05/05.
- Viral pneumonia
- Out of window for effective treatment.
- COVID neg here 05/09 and 05/11 .
- Off COVID isolation
ID will sign off.
Chief Complaint
-: Other (Recent COVID)
Subjective / Review of Systems
Throat pain and cough slightly better.
Drinking soup.
Vital Signs / Physical Exam
Vital Signs
Vital Signs
Temp Pulse Resp BP Pulse Ox
97.8 F 104 20 101/64 93
05/13/25 11:00 05/13/25 11:00 05/13/25 11:00 05/13/25 11:00 05/13/25 11:00
Physical Exam
Constitutional: Chronically Ill
Eyes: No Conjunctival Hemorrhage and Sclera Anicteric
Lymph Nodes: Lymphadenopathy (Right cervical LAD)
Cardiovascular: Regular Rate and S1/S2
Pulmonary: Clear; Negative Wheezes
Gastrointestinal: Soft, Non Tender, Non Distended and Normal Bowel Sounds
Genito-Urinary: Negative CVA Tenderness
Extremities: Edema (BLE)
Wound: Other (Multiple skin lesions on face; right cheek MOHs with packing)
Neurological: AO x 3
Lines: Port (RCW no erythema)
Objective Data
Lab Data
Lab Results
05/13/25 03:39
05/13/25 03:39
APTT 89.5 Sec (23.4-35.0) H 05/10/25 05:19
Estimated Creat Clear 71 ml/min 05/13/25 03:39
Total Bilirubin 0.5 mg/dl (0.2-1.3) 05/11/25 06:10
AST 56 U/L (17-59) 05/11/25 06:10
ALT 57 U/L (0-50) H 05/11/25 06:10
Alkaline Phosphatase 103 U/L (38-126) 05/11/25 06:10
Most recent labs reviewed.
Micro Results:
05/09/25 17:48 Blood Culture - Preliminary
Blood/Venous No Growth in 72 hours- Final report to follow
05/09/25 17:48 Blood Culture - Preliminary
Blood/Venous No Growth in 72 hours- Final report to follow
05/10/25 12:40 Respiratory Culture - Final
Sputum Usual Respiratory Chris
Gram Stain - Final
05/10/25 12:40 Streptococcus Screen (SANGITA) - Final
Throat/Pharynx No Beta Hemolytic Streptococci Isolated
Streptococcus Rapid Screen - Final
Rapid Strep Screen (Group A) Negative
05/09/25 17:48 Urine Culture - Final
Urine NO GROWTH
05/09/25 17:48 Influenza Types A & B (BRANDON) - Final
Nasal Swab Negative for Influenza A & B, NAAT
Negative results must be combined with clinical observations
and patient history.
Nucleic Acid Amplification test (NAAT)performed on the
[employer] platform.
05/09/25 17:49 Legionella Urinary Antigen - Final
Urine Negative for Legionella pneumophila Serogroup 1 antigen.
A negative result does not rule out the possiblity of
Legionella infection due to other serogroups or species of
Legionella. Clinical correlation is recommended.
Streptococcus pneumoniae Antigen (M - Final
Negative for Streptococcus pneumoniae antigen.
A negative result does not exclude infection with
Streptococcus pneumoniae. Clinical correlation is
recommended.
05/11/25 CXR: Ill-defined area of interstitial/groundglass opacity within the left midlung which may correspond to known area of scarring and bronchiectasis, however this opacity appears more prominent compared to prior studies.
05/09/25 CXR: No acute cardiopulmonary process.
05/09/[address]: Bilateral upper lobe groundglass opacities. Enlarged right cervical lymph node.
--- NOTE | 2025-05-13 16:44 | CM ---
Chart reviewed and therapy are documenting home v's skilled will need final determination to assist with discharge for patient patient lives with spouse.
Plan; Home v's skilled
[2025-05-13] MEDS: CRESTOR 10 MG PO (18:16)
[2025-05-13] MEDS: ZOVIRAX 800 MG PO (19:05)
[2025-05-13] MEDS: HYDREA 1000 MG PO (19:05)
[2025-05-14 03:26] VITALS: BP 128/57
[2025-05-14 07:35] VITALS: BP 121/61
[2025-05-14 09:24] LABS: Blood Urea Nitrogen 28 mg/dl (9-20); Calcium 8.4 mg/dl (8.4-10.2); Carbon Dioxide 25 mmol/L (22-30); Chloride 106 mmol/L (98-107); Estimated Creatinine Clearance 62 ml/min; Glucose 159 mg/dl (70-99); Potassium 3.9 mmol/L (3.5-5.1); Sodium 135 mmol/L (135-145); Uric Acid 3.9 mg/dl (3.5-8.5); eGFR > 60.00
[2025-05-14] MEDS: ZOVIRAX 800 MG PO ×2 (09:33→19:12)
[2025-05-14] MEDS: VITAMIN B-12 1000 MCG PO (09:33)
[2025-05-14] MEDS: PEPCID 20 MG PO (09:33)
[2025-05-14] MEDS: NORVASC 5 MG PO (09:33)
[2025-05-14] MEDS: HYDREA 1000 MG PO ×2 (09:33→19:12)
[2025-05-14 09:34] LABS: LDH 1327 U/L (120-246)
[2025-05-14] MEDS: PACERONE 100 MG PO (09:34)
--- NOTE | 2025-05-14 09:48 | W.PN.HOSP.TC ---
Today's Communication/Plan
-
Monitor leukocytosis and placed.
Observe off antibiotic
Assessment / Plan
Assessment / Plan
Impression:
85yo M with PMHx of squamous cell CA of the skin, followed by s/p multiple MOHS, Hx of Afib, HTN, AML, R sided chemo port, HLD came with 1 week of progressive throat pain and weakness. He was tested positive for COVID-19 5 days ago.
Admitted for viral pneumonia with possible superimposed bacterial pneumonia. Also Afib reoccurence and blast cells. Anticoagulation stopped with worsening thrombocytopenia and anemia. started on Decadron and Remdesivir 2/2 findings of pneumonia on
CT and hypoxia on the second day of admission
Patient developed hypoxia on the second day and signs of viral pneumonia on CT
initially remdesivir started, seen by infectious disease recommend to discontinue remdesivir and continue vancomycin and cefepime.
In place speech, underwent FEES.
Patient finally passed a bedside swallow eval, started on pur�ed diet.
Discussed Methasone discontinued
Added acyclovir
Infectious disease discontinued cefepime
Assessment/plan:
Severe sepsis with acute organ dysfunction.
Patient meets sepsis criteria on admission in form of leukocytosis, tachycardia, fever.
Source of infection viral pneumonia/superimposed bacterial pneumonia.
Acute organ dysfunction in form of acute respiratory failure
Appreciate infectious disease input, discontinue vancomycin and continue cefepime
Later cefepime discontinued, patient was started on acyclovir.
Acute hypoxic failure 2/2 Covid-19/superimposed bacterial pneumonia
Patient developed hypoxia on the second day and signs of viral pneumonia on CT
remdesivir started, seen by infectious disease recommend to discontinue remdesivir and continue vancomycin and cefepime
Decadron with hypoxia
Symptomatic mgmt
COVID-19 neg in hospital, however reported pos at home. Cont enhancd isolation
Influenza PCR NEG
#Sore throat with R neck lump
#cough
#Viral COVID-19 pneumonia vs superimposed bacterial CAP with unspecified organism
R chemo port without surrounding redness or pain
CT neck w/wo contrast showed b/l ground glass opacitied on lung apex and An enlarged right level IIa cervical lymph node measures 1.4 x 1.2 cm
check for strep throat
Bcx NTD
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
legionella and Strep pneumonia urinary Ag neg
Sputum Cx
antitussives
05/13
Antibiotics continued, dexamethasone discontinued.
Isolation discontinued.
Most likely asymptomatic bacteriuria
UTI ruled out
Dysphagia.
Pur�ed
Hypokalemia.
Replace and continue to monitor.
#AML
#Thrombocytopenia
#Leukocytosis
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
#An enlarged right level IIa cervical lymph node measures 1.4 x 1.2 cm
with 31% blasts
Oncology consult, note appreciated
follow CBC
Anemia w/u, check LDH, haptoglobin. WIth normal retics - concern for bone marrow dysfunction to play significant role
05/13
Worsening leukocytosis and placed overnight.
Oncology recommending to discontinue dexamethasone.
Increase hydroxyurea to 500 twice daily.
Added acyclovir
BLAKE on admission with CKD stage 3a
Creatinine improved
Elevated alk phos
improved
Paroxysmal A-fib
Currently sinus rhythm.
Continue amiodarone
#Malaise with ambulatory dysfunction
2/2 acute disease
PT/OT
#Squamous cell CA of the skin
with large lump on R face
no significant signs of infection
Cont to follow with Derm upon D/C
History of hyperlipidemia.
Continue home meds.
History of hypertension.
Continue home med
CODE STATUS: DNR
DVT prophylaxis: SCD
Diet: Pur�ed
Disposition: Observe off antibiotics
Total time spent on today's encounter was 65 minutes which included time spent in counseling the patient/family regarding diagnosis and treatment plan as listed above, goals of care, and symptom management. Case was discussed with nursing staff,
specialists, and care coordinators/case management. All labs and imaging personally reviewed by me. Remainder the time spent in detailed review of previous records, lab data, imaging, and other medical provider documentation.
Anticipated Discharge: > 48 hours
Subjective/Interval History
-
Date of Service: May 14, 2025
Patient is short of breath and coughing, denies chest pain.
Objective Data
-
Labs:
Laboratory Results
05/14/25
07:45
WBC Pending
Hgb Pending
Hct Pending
Plt Count Pending
Sodium 135
Potassium 3.9
Chloride 106
Carbon Dioxide 25
BUN 28 H
Creatinine 0.8
Glucose 159 H
Calcium 8.4
Vital Signs:
Vital Signs
Temp Pulse Resp BP Pulse Ox
97.9 F 101 16 121/61 92
05/14/25 07:35 05/14/25 07:35 05/14/25 07:35 05/14/25 07:35 05/14/25 07:35
I&O
05/13/25 05/14/25 05/15/25
06:59 06:59 06:59
Intake Total 690 / 690 2039 / 2039
Output Total 875 / 875 300 / 300
Balance -185 / -185 1740 / 1740
Physical Exam
-
General: Well Developed, Well Nourished, No Apparent Distress and Comfortable
HEENT: Normocephalic, Atraumatic, Moist Mucous Membranes, No Ptosis, PERRLA and Nose Appears Normal
Respiratory: Rales, Rhonchi, Crackles and Non Labored Respirations
Cardiac: Regular Rhythm and S1/S2
Breast: Deferred by me
GI: Soft, Nontender, Nondistended and Normal Bowel Sounds
Genito-urinary: No Costovertebral Tender
Musculoskeletal: No Clubbing, No Cyanosis and No Edema
Skin: Lesions (dressing/ lump on R face)
Neuro: Awake, Alert, Oriented, AO x 3 and No Motor Deficits
Psych: Calm
Data Reviewed
-
Diagnostic Radiology: Image personally visualized and interpreted and Report Reviewed by me
CT Scan: Image personally visualized and interpreted and Report Reviewed by me
Ultrasound: Image personally visualized and interpreted and Report Reviewed by me
MRI: Image personally visualized and interpreted and Report Reviewed by me
Medical Tests (Nuc Med, Echo etc): Image personally visualized and interpreted and Report Reviewed by me
Labs: Labs Reviewed by me
Old Records: Reviewed
--- NOTE | 2025-05-14 10:02 | W.PN.ONC ---
Today's Communication / Plan
-
Titrating Hydrea
Continue acyclovir
Monitor for tumor lysis
Rising LDH is concerning for relapsing disease without hemolysis
Transfuse hemoglobin less than 7
Transfuse platelet count less than 20K or with bleeding<50K
Supplement B12
Impression
Impression
AML Recurrence -Blasts 80%
Multifactorial anemia in setting of AML and large volume resuscitation
Thrombocytopenia in setting of AML, hydroxyurea
Paroxsysmal a.fib
BLAKE
Acute hypoxic insufficiency secondary to COVID
Squamous cell carcinoma of the skin
Plan
Plan
Subjective/Objective
Subjective/Objective
Continues to complain of pharyngitis symptoms
Vital Signs:
Vital Signs
Temp Pulse Resp BP Pulse Ox
97.9 F 101 16 121/61 92
05/14/25 07:35 05/14/25 07:35 05/14/25 07:35 05/14/25 07:35 05/14/25 07:35
clinical exam unchanged
Lab Results:
Laboratory Data
WBC 51.7 10^3/uL (4.8-10.8) H* 05/13/25 03:39
Hgb 8.4 g/dL (13.0-18.0) L 05/13/25 03:39
Plt Count 44 10^3/uL (130-400) L 05/13/25 03:39
APTT 89.5 Sec (23.4-35.0) H 05/10/25 05:19
eGFR > 60.00 05/14/25 07:45
[2025-05-14 11:00] VITALS: BP 113/65
[2025-05-14 11:01] LABS: Hematocrit 25.1 % (39.0-52.0); Hemoglobin 8.6 g/dL (13.0-18.0); Mean Corp Hgb Conc. 34.3 g/dL (33.0-37.0); Mean Corpuscular Volume 90.9 fL (80.0-94.0); Platelet Count 45 10^3/uL (130-400); Red Cell Dist. Width 14.6 % (11.5-14.5)
[2025-05-14 11:02] LABS: Absolute Neutrophils -Man Diff 9.1 10^3/uL (1.4-6.5)
[2025-05-14 11:04] LABS: Platelets Checked YES
[2025-05-14 11:05] LABS: Hypochromasia +1; Normal RBC Morphology No
[2025-05-14 11:06] LABS: Total Cells Counted 100
[2025-05-14] MEDS: TYLENOL 650 MG PO (14:00)
[2025-05-14 16:37] VITALS: BP 121/52
[2025-05-14] MEDS: CRESTOR 10 MG PO (17:19)
[2025-05-14 19:12] VITALS: BP 134/58
[2025-05-14 22:55] VITALS: BP 138/110
[2025-05-15 03:00] VITALS: BP 114/62
[2025-05-15 05:43] LABS: Hematocrit 24.2 % (39.0-52.0); Hemoglobin 8.3 g/dL (13.0-18.0); Mean Corp Hgb Conc. 34.3 g/dL (33.0-37.0); Mean Corpuscular Volume 89.6 fL (80.0-94.0); Red Cell Dist. Width 14.5 % (11.5-14.5)
[2025-05-15 05:51] LABS: Blood Urea Nitrogen 47 mg/dl (9-20); Calcium 8.2 mg/dl (8.4-10.2); Carbon Dioxide 24 mmol/L (22-30); Chloride 104 mmol/L (98-107); Estimated Creatinine Clearance 41 ml/min; Glucose 187 mg/dl (70-99); Potassium 4.0 mmol/L (3.5-5.1); Sodium 132 mmol/L (135-145); Uric Acid 5.7 mg/dl (3.5-8.5); eGFR 58.89
[2025-05-15 06:12] LABS: LDH 2055 U/L (120-246)
[2025-05-15 07:00] VITALS: BP 143/56
[2025-05-15] MEDS: TYLENOL 650 MG PO ×2 (07:53→23:41)
[2025-05-15] MEDS: HYDREA 1000 MG PO ×2 (07:53→19:42)
[2025-05-15] MEDS: PEPCID 20 MG PO (07:53)
[2025-05-15] MEDS: ZOVIRAX 800 MG PO ×2 (07:53→19:42)
[2025-05-15] MEDS: PACERONE 100 MG PO (07:53)
[2025-05-15] MEDS: NORVASC 5 MG PO (07:53)
[2025-05-15] MEDS: VITAMIN B-12 1000 MCG PO (07:53)
[2025-05-15 09:08] LABS: Platelet Count 37 10^3/uL (130-400)
[2025-05-15 09:12] LABS: Absolute Neutrophils -Man Diff 8.7 10^3/uL (1.4-6.5)
[2025-05-15 09:17] LABS: Normal RBC Morphology No; Platelets Checked YES
[2025-05-15 09:19] LABS: Hypochromasia +1; Tear Drop Red Blood Cells FEW
[2025-05-15 09:21] LABS: Microcytosis FEW; Total Cells Counted 100
--- NOTE | 2025-05-15 11:17 | W.PN.HOSP.TC ---
Today's Communication/Plan
-
Patient still with worsening leukocytosis.
Follow with oncology recommendations.
Monitor for tumor lysis syndrome.
Assessment / Plan
Assessment / Plan
Impression:
85yo M with PMHx of squamous cell CA of the skin, followed by s/p multiple MOHS, Hx of Afib, HTN, AML, R sided chemo port, HLD came with 1 week of progressive throat pain and weakness. He was tested positive for COVID-19 5 days ago.
Admitted for viral pneumonia with possible superimposed bacterial pneumonia. Also Afib reoccurence and blast cells. Anticoagulation stopped with worsening thrombocytopenia and anemia. started on Decadron and Remdesivir 2/2 findings of pneumonia on
CT and hypoxia on the second day of admission
Patient developed hypoxia on the second day and signs of viral pneumonia on CT
initially remdesivir started, seen by infectious disease recommend to discontinue remdesivir and continue vancomycin and cefepime.
In place speech, underwent FEES.
Patient finally passed a bedside swallow eval, started on pur�ed diet.
DEXAMethasone discontinued
Added acyclovir
Infectious disease discontinued cefepime
Leukocytosis continued worsening, oncology increased
Assessment/plan:
Severe sepsis with acute organ dysfunction.
Patient meets sepsis criteria on admission in form of leukocytosis, tachycardia, fever.
Source of infection viral pneumonia/superimposed bacterial pneumonia.
Acute organ dysfunction in form of acute respiratory failure
Appreciate infectious disease input, discontinue vancomycin and continue cefepime
Later cefepime discontinued, patient was started on acyclovir by oncology.
Acute hypoxic failure 2/2 Covid-19/superimposed bacterial pneumonia
Patient developed hypoxia on the second day and signs of viral pneumonia on CT
remdesivir started, seen by infectious disease recommend to discontinue remdesivir and continue vancomycin and cefepime
Decadron with hypoxia
Symptomatic mgmt
COVID-19 neg in hospital, however reported pos at home. Cont enhancd isolation.
Influenza PCR NEG
#AML
#Thrombocytopenia
#Leukocytosis
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
#An enlarged right level IIa cervical lymph node measures 1.4 x 1.2 cm
with 31% blasts
Oncology consult, note appreciated
follow CBC
Anemia w/u, check LDH, haptoglobin. WIth normal retics - concern for bone marrow dysfunction to play significant role
05/13
Worsening leukocytosis and placed overnight.
Oncology recommending to discontinue dexamethasone.
Increase hydroxyurea to 500 twice daily.
Added acyclovir
05/15
Worsening leukocytosis.
Follow-up with oncology recommendation
#Sore throat with R neck lump
#cough
#Viral COVID-19 pneumonia vs superimposed bacterial CAP with unspecified organism
R chemo port without surrounding redness or pain
CT neck w/wo contrast showed b/l ground glass opacitied on lung apex and An enlarged right level IIa cervical lymph node measures 1.4 x 1.2 cm
check for strep throat
Bcx NTD
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
legionella and Strep pneumonia urinary Ag neg
Sputum Cx
antitussives
05/13
Antibiotics continued, dexamethasone discontinued.
Isolation discontinued.
Most likely asymptomatic bacteriuria
UTI ruled out
Dysphagia.
Pur�ed
Hypokalemia.
Replace and continue to monitor.
BLAKE on admission with CKD stage 3a
Creatinine improved
Elevated alk phos
improved
Paroxysmal A-fib
Currently sinus rhythm.
Continue amiodarone
#Malaise with ambulatory dysfunction
2/2 acute disease
PT/OT
#Squamous cell CA of the skin
with large lump on R face
no significant signs of infection
Cont to follow with Derm upon D/C
History of hyperlipidemia.
Continue home meds.
History of hypertension.
Continue home med
CODE STATUS: DNR
DVT prophylaxis: SCD
Diet: Pur�ed
Disposition: Worsening leukocytosis.
Follow with oncology recommendations.
Total time spent on today's encounter was 65 minutes which included time spent in counseling the patient/family regarding diagnosis and treatment plan as listed above, goals of care, and symptom management. Case was discussed with nursing staff,
specialists, and care coordinators/case management. All labs and imaging personally reviewed by me. Remainder the time spent in detailed review of previous records, lab data, imaging, and other medical provider documentation.
Anticipated Discharge: > 48 hours
Subjective/Interval History
-
Date of Service: May 15, 2025
Overall patient feeling better, worsening leukocytosis, denies chest pain, improved shortness of breath.
Objective Data
-
Labs:
Laboratory Results
05/15/25
05:06
WBC 87.4 H*
Hgb 8.3 L
Hct 24.2 L
Plt Count 37 L
Sodium 132 L
Potassium 4.0
Chloride 104
Carbon Dioxide 24
BUN 47 H
Creatinine 1.2
Glucose 187 H
Calcium 8.2 L
Vital Signs:
Vital Signs
Temp Pulse Resp BP Pulse Ox
98.1 F 102 18 143/56 90
05/15/25 07:00 05/15/25 07:00 05/15/25 07:00 05/15/25 07:00 05/15/25 07:00
I&O
05/14/25 05/15/25 05/16/25
06:59 06:59 06:59
Intake Total 2040 / 2040 1080 / 1080
Output Total 300 / 300 600 / 600
Balance 1740 / 1740 480 / 480
Physical Exam
-
General: Well Developed, Well Nourished, No Apparent Distress and Comfortable
HEENT: Normocephalic, Atraumatic, Moist Mucous Membranes, No Ptosis, PERRLA and Nose Appears Normal
Respiratory: Rales, Rhonchi, Crackles and Non Labored Respirations
Cardiac: Regular Rhythm and S1/S2
Breast: Deferred by me
GI: Soft, Nontender, Nondistended and Normal Bowel Sounds
Genito-urinary: No Costovertebral Tender
Musculoskeletal: No Clubbing, No Cyanosis and No Edema
Skin: Lesions (dressing/ lump on R face)
Neuro: Awake, Alert, Oriented, AO x 3 and No Motor Deficits
Psych: Calm
Data Reviewed
-
Diagnostic Radiology: Image personally visualized and interpreted and Report Reviewed by me
CT Scan: Image personally visualized and interpreted and Report Reviewed by me
Ultrasound: Image personally visualized and interpreted and Report Reviewed by me
MRI: Image personally visualized and interpreted and Report Reviewed by me
Medical Tests (Nuc Med, Echo etc): Image personally visualized and interpreted and Report Reviewed by me
Labs: Labs Reviewed by me
Old Records: Reviewed
[2025-05-15 11:30] VITALS: BP 132/54
--- NOTE | 2025-05-15 11:30 | PTOTSP ---
Speech therapy
Swallowing Function: Patient was observed with several bites of puree and mechanical soft solids with thin liquids (straw) in which patient appeared to tolerate all presentations as he did not exhibit any overt clinical s/sx of aspiration or
difficulty with mastication or manipulation. Patient denied any dysphagia complaints with trials. No additional presentations were trialed due to patient's wax/wane respiratory presentation (SOB at times with nasal cannula which improved with cued
pausing and deep breaths).
Given the above, recommend trial of IDDSI 5 with thin liquids.
Recommendations:
1) ADVANCE diet to IDDSI 5 and thin liquids
2) Aspiration precautions
3) PO only when RR<30 and SpO2 >90%
4) No PO when SOB
5) Medications as tolerated
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
[2025-05-15 12:31] LABS: Source Blood
--- NOTE | 2025-05-15 14:17 | PTCARENOTE ---
Patient states, 'I feel better today, my throat is not as sore and it is easy to swallow water.' Patient OOB with min assist to chair with walker. Patient is tolerating IDDS5. Tylenol given this am for a headache with good relief. Patient continues
to get SOB when ambulating, O2 2L NC maintained. Spouse at bedside. Right cheek dressing changed (Mohs procedure).
[2025-05-15 15:20] VITALS: BP 111/55
[2025-05-15 16:05] VITALS: BP 111/55
[2025-05-15] MEDS: TYLENOL PO (16:49)
[2025-05-15] MEDS: CRESTOR 10 MG PO (16:49)
--- NOTE | 2025-05-15 17:01 | PTCARENOTE ---
Attempted to give patient Tylenol for a headache, but patient vomited. Patient states, he has had on and off nausea. Physician notified.
[2025-05-15] MEDS: FLUSH (NSS) 1 FLUSH IV (17:20)
[2025-05-15] MEDS: ZOFRAN 4 MG IV (17:20)
[2025-05-15 23:19] VITALS: BP 124/57
[2025-05-16 05:59] LABS: Uric Acid 5.2 mg/dl (3.5-8.5)
[2025-05-16 06:15] LABS: Hematocrit 23.1 % (39.0-52.0); Hemoglobin 7.9 g/dL (13.0-18.0); Mean Corp Hgb Conc. 34.2 g/dL (33.0-37.0); Mean Corpuscular Volume 90.2 fL (80.0-94.0); Platelet Count 24 10^3/uL (130-400); Red Cell Dist. Width 14.7 % (11.5-14.5)
[2025-05-16 06:20] LABS: LDH 2047 U/L (120-246)
[2025-05-16 06:55] VITALS: BP 126/56
[2025-05-16] MEDS: NORVASC 5 MG PO (07:56)
[2025-05-16] MEDS: PACERONE 100 MG PO (07:56)
[2025-05-16] MEDS: VITAMIN B-12 1000 MCG PO (07:57)
[2025-05-16] MEDS: ZOVIRAX 800 MG PO (07:57)
[2025-05-16] MEDS: HYDREA 1000 MG PO (07:57)
[2025-05-16] MEDS: PEPCID 20 MG PO (07:57)
[2025-05-16] MEDS: TYLENOL 650 MG PO (08:03)
--- NOTE | 2025-05-16 09:01 | W.PN.HOSP.TC ---
Today's Communication/Plan
-
Discharge home with home hospice
Assessment / Plan
Assessment / Plan
Impression:
85yo M with PMHx of squamous cell CA of the skin, followed by s/p multiple MOHS, Hx of Afib, HTN, AML, R sided chemo port, HLD came with 1 week of progressive throat pain and weakness. He was tested positive for COVID-19 5 days ago.
Admitted for viral pneumonia with possible superimposed bacterial pneumonia. Also Afib reoccurence and blast cells. Anticoagulation stopped with worsening thrombocytopenia and anemia. started on Decadron and Remdesivir 2/2 findings of pneumonia on
CT and hypoxia on the second day of admission
Patient developed hypoxia on the second day and signs of viral pneumonia on CT
initially remdesivir started, seen by infectious disease recommend to discontinue remdesivir and continue vancomycin and cefepime.
In place speech, underwent FEES.
Patient finally passed a bedside swallow eval, started on pur�ed diet.
DEXAMethasone discontinued
Added acyclovir
Infectious disease discontinued cefepime
Leukocytosis continued worsening, oncology increased
05/16
Patient received home hospice.
Social service consulted.
Patient discharged to home with home hospice.
Assessment/plan:
Severe sepsis with acute organ dysfunction.
Patient meets sepsis criteria on admission in form of leukocytosis, tachycardia, fever.
Source of infection viral pneumonia/superimposed bacterial pneumonia.
Acute organ dysfunction in form of acute respiratory failure
Appreciate infectious disease input, discontinue vancomycin and continue cefepime
Later cefepime discontinued, patient was started on acyclovir by oncology.
Acute hypoxic failure 2/2 Covid-19/superimposed bacterial pneumonia
Patient developed hypoxia on the second day and signs of viral pneumonia on CT
remdesivir started, seen by infectious disease recommend to discontinue remdesivir and continue vancomycin and cefepime
Decadron with hypoxia
Symptomatic mgmt
COVID-19 neg in hospital, however reported pos at home. Cont enhancd isolation.
Influenza PCR NEG
#AML
#Thrombocytopenia
#Leukocytosis
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
#An enlarged right level IIa cervical lymph node measures 1.4 x 1.2 cm
with 31% blasts
Oncology consult, note appreciated
follow CBC
Anemia w/u, check LDH, haptoglobin. WIth normal retics - concern for bone marrow dysfunction to play significant role
05/13
Worsening leukocytosis and placed overnight.
Oncology recommending to discontinue dexamethasone.
Increase hydroxyurea to 500 twice daily.
Added acyclovir
05/15
Worsening leukocytosis.
Follow-up with oncology recommendation
#Sore throat with R neck lump
#cough
#Viral COVID-19 pneumonia vs superimposed bacterial CAP with unspecified organism
R chemo port without surrounding redness or pain
CT neck w/wo contrast showed b/l ground glass opacitied on lung apex and An enlarged right level IIa cervical lymph node measures 1.4 x 1.2 cm
check for strep throat
Bcx NTD
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
legionella and Strep pneumonia urinary Ag neg
Sputum Cx
antitussives
05/13
Antibiotics continued, dexamethasone discontinued.
Isolation discontinued.
Most likely asymptomatic bacteriuria
UTI ruled out
Dysphagia.
Pur�ed
Hypokalemia.
Replace and continue to monitor.
BLAKE on admission with CKD stage 3a
Creatinine improved
Elevated alk phos
improved
Paroxysmal A-fib
Currently sinus rhythm.
Continue amiodarone
#Malaise with ambulatory dysfunction
2/2 acute disease
PT/OT
#Squamous cell CA of the skin
with large lump on R face
no significant signs of infection
Cont to follow with Derm upon D/C
History of hyperlipidemia.
Continue home meds.
History of hypertension.
Continue home med
CODE STATUS: DNR
DVT prophylaxis: SCD
Diet: Pur�ed
Disposition: Discharge home with home hospice, social service/Hospice consulted
Total time spent on today's encounter was 65 minutes which included time spent in counseling the patient/family regarding diagnosis and treatment plan as listed above, goals of care, and symptom management. Case was discussed with nursing staff,
specialists, and care coordinators/case management. All labs and imaging personally reviewed by me. Remainder the time spent in detailed review of previous records, lab data, imaging, and other medical provider documentation.
Anticipated Discharge: Today
Subjective/Interval History
-
Date of Service: May 16, 2025
Patient interested in home hospice, social service consult
Objective Data
-
Labs:
Laboratory Results
05/16/25
05:10
WBC 65.0 H*
Hgb 7.9 L
Hct 23.1 L
Plt Count 24 L* D
Vital Signs:
Vital Signs
Temp Pulse Resp BP Pulse Ox
98.3 F 98 18 126/56 90
05/16/25 06:55 05/16/25 07:56 05/16/25 06:55 05/16/25 07:56 05/16/25 08:13
I&O
05/15/25 05/16/25 05/17/25
06:59 06:59 06:59
Intake Total 1080 / 1080 540 / 540
Output Total 600 / 600 450 / 450
Balance 480 / 480 90 / 90
Physical Exam
-
General: Well Developed, Well Nourished, No Apparent Distress and Comfortable
HEENT: Normocephalic, Atraumatic, Moist Mucous Membranes, No Ptosis, PERRLA and Nose Appears Normal
Respiratory: Rales, Rhonchi, Crackles and Non Labored Respirations
Cardiac: Regular Rhythm and S1/S2
Breast: Deferred by me
GI: Soft, Nontender, Nondistended and Normal Bowel Sounds
Genito-urinary: No Costovertebral Tender
Musculoskeletal: No Clubbing, No Cyanosis and No Edema
Skin: Lesions (dressing/ lump on R face)
Neuro: Awake, Alert, Oriented, AO x 3 and No Motor Deficits
Psych: Calm
[2025-05-16] MEDS: FLUSH (NSS) 2 FLUSH IV (11:27)
[2025-05-16] MEDS: MORPHINE SULFATE 2 MG IV ×2 (11:27→20:08)
--- NOTE | 2025-05-16 12:29 | HOSPNOTE ---
Hospice referral received. Spoke to spouse Malka. She is in agreement with hospice. She would like patient to get transfused with PLT today and home with hospice tomorrow. Oxygen ordered and to be delivered tomorrow morning. Patient then to be
transported home via ambulance and hospice will meet them at the home. in agreement. Transport requested for 11am-12noon. OTTO, Primary RN and attending updated.
[2025-05-16 12:37] LABS: Absolute Neutrophils -Man Diff 3.2 10^3/uL (1.4-6.5); Normal RBC Morphology No; Platelets Checked Yes
[2025-05-16 12:38] LABS: Hypochromasia 1+; Microcytosis 1+; Ovalocytes 1+; Polychromasia 1+; Total Cells Counted 100
--- NOTE | 2025-05-16 13:27 | CM ---
CM following re: discharge planning.
Reviewed pt's chart, met with pt.
Pt stated he would prefer to return back home with hospice services to spend time with family. Emotional support offered a d provided. Hospice vendors choices given. Pt preferred hospice. A referral to hospice made.
Per account liaison hospice, pt is accepted for admission for hospice care tomorrow and all DME will be delivered to pt's home tomorrow morning. Ambulance transport requested with pickling grader time 11:00 a.m.
to arrange ambulance transport BLS for tomorrow, PMNC completed and left with . MD to sign out of hospital DNR, form is on the chart.
IMM reviewed, placed on chart, pt has a copy.
D/C plan: home tomorrow 05/17/25 with hospice.
[2025-05-16 15:18] VITALS: BP 124/53
--- NOTE | 2025-05-16 15:55 | W.PN.ONC2 ---
Today's Communication / Plan
-
Agree with plan for home hospice.
Impression
Impression
AML Recurrence -Blasts 80%
Multifactorial anemia in setting of AML and large volume resuscitation
Thrombocytopenia in setting of AML, hydroxyurea
Paroxsysmal a.fib
BLAKE
Acute hypoxic insufficiency secondary to COVID
Squamous cell carcinoma of the skin
Plan
Plan
Agree with plan for hospice.
No transfusion needed with platelets >24.
D/C Hydrea which is likely contributing to the platelet drop.
Discussed causes of from AML: bleeding, infection, leukostasis complicated by confusion and organ failure.
Pt and voiced understanding of rationale for not transfusing platelets.
Subjective/Objective
Chief Complaint
Heme Onc follow up of AML
Subjective
Pt opting for home hospice. Requests platelet transfusion.
Vital Signs:
Vital Signs
Temp Pulse Resp BP Pulse Ox
97.8 F 111 16 124/53 92
05/16/25 15:18 05/16/25 15:18 05/16/25 15:18 05/16/25 15:18 05/16/25 15:18
Lab Results:
Laboratory Data
WBC 65.0 10^3/uL (4.8-10.8) H* 05/16/25 05:10
Hgb 7.9 g/dL (13.0-18.0) L 05/16/25 05:10
Plt Count 24 10^3/uL (130-400) L* D 05/16/25 05:10
APTT 89.5 Sec (23.4-35.0) H 05/10/25 05:19
eGFR 58.89 05/15/25 05:06
Physical Exam
Awake, alert, chronically ill-appearing
Many ecchymoses
[2025-05-16] MEDS: CRESTOR 10 MG PO (17:10)
[2025-05-16] MEDS: ZOVIRAX PO (20:11)
[2025-05-16 23:36] VITALS: BP 117/68
[2025-05-17] MEDS: MORPHINE SULFATE 2 MG IV ×2 (06:38→10:45)
[2025-05-17 07:00] VITALS: BP 121/57
[2025-05-17] MEDS: ZOVIRAX 800 MG PO (07:33)
[2025-05-17] MEDS: PEPCID 20 MG PO (07:33)
[2025-05-17] MEDS: PACERONE 100 MG PO (07:34)
[2025-05-17] MEDS: VITAMIN B-12 1000 MCG PO (07:34)
[2025-05-17] MEDS: NORVASC 5 MG PO (07:35)
[2025-05-17 08:20] LABS: Uric Acid 4.6 mg/dl (3.5-8.5)
[2025-05-17 08:35] LABS: LDH 1581 U/L (120-246)
[2025-05-17 09:32] LABS: Hematocrit 21.6 % (39.0-52.0); Hemoglobin 7.4 g/dL (13.0-18.0); Mean Corp Hgb Conc. 34.3 g/dL (33.0-37.0); Mean Corpuscular Volume 90.0 fL (80.0-94.0); Red Cell Dist. Width 14.8 % (11.5-14.5)
[2025-05-17 09:33] LABS: Absolute Neutrophils -Man Diff 2.6 10^3/uL (1.4-6.5); Anisocytosis 1+; Hypochromasia 1+; Normal RBC Morphology No; Platelets Checked Yes; Polychromasia 1+
[2025-05-17 09:34] LABS: Ovalocytes 1+; Total Cells Counted 100
[2025-05-17 09:36] LABS: Platelet Count 18 10^3/uL (130-400)
--- NOTE | 2025-05-17 10:44 | CM ---
CM following re: discharge planning.
Reviewed pt's chart, met with pt.
Discharge order noted.
Per quality liaison, pt is accepted for admission for hospice care tomorrow and all DME will be delivered to pt's home tomorrow morning. Ambulance transport requested with pecan picker time 11:00 a.m.
arranged ambulance transport BLS with pecan picker time 12:00 p.m. PMNC completed and left with . signed out of hospital DNR.
IMM reviewed yesterday, placed on chart, pt has a copy.
D/C plan: home today with hospice.
[2025-05-17] MEDS: FLUSH (NSS) 2 FLUSH IV (10:47)
[2025-05-17 10:54] VITALS: BP 112/47
--- NOTE | 2025-05-17 11:00 | W.DCSUMMARY ---
Discharge Summary
Discharge Data
Date of Admission: 05/09/25
Date of Discharge: 05/17/25
Total time spent discharging patient (in min): 40
-
Pending Results: No
Hospital Course
Hospital course
85yo M with PMHx of squamous cell CA of the skin, followed by s/p multiple MOHS, Hx of Afib, HTN, AML, R sided chemo port, HLD came with 1 week of progressive throat pain and weakness. He was tested positive for COVID-19 5 days ago.
Admitted for viral pneumonia with possible superimposed bacterial pneumonia. Also Afib reoccurence and blast cells. Anticoagulation stopped with worsening thrombocytopenia and anemia. started on Decadron and Remdesivir 2/2 findings of pneumonia on
CT and hypoxia on the second day of admission
Patient developed hypoxia on the second day and signs of viral pneumonia on CT
initially remdesivir started, seen by infectious disease recommend to discontinue remdesivir and continue vancomycin and cefepime.
In place speech, underwent FEES.
Patient finally passed a bedside swallow eval, started on pur�ed diet.
DEXAMethasone discontinued
Added acyclovir
Infectious disease discontinued cefepime
Leukocytosis continued worsening, oncology increased
05/16
Patient received home hospice.
Social service consulted.
Patient discharged to home with home hospice.
During hospitalization patient was treated from the following
Severe sepsis with acute organ dysfunction.
Patient meets sepsis criteria on admission in form of leukocytosis, tachycardia, fever.
Source of infection viral pneumonia/superimposed bacterial pneumonia.
Acute organ dysfunction in form of acute respiratory failure
Appreciate infectious disease input, discontinue vancomycin and continue cefepime
Later cefepime discontinued, patient was started on acyclovir by oncology.
Acute hypoxic failure 2/2 Covid-19/superimposed bacterial pneumonia
Patient developed hypoxia on the second day and signs of viral pneumonia on CT
remdesivir started, seen by infectious disease recommend to discontinue remdesivir and continue vancomycin and cefepime
Decadron with hypoxia
Symptomatic mgmt
COVID-19 neg in hospital, however reported pos at home. Cont enhancd isolation.
Influenza PCR NEG
#AML
#Thrombocytopenia
#Leukocytosis
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
#An enlarged right level IIa cervical lymph node measures 1.4 x 1.2 cm
with 31% blasts
Oncology consult, note appreciated
follow CBC
Anemia w/u, check LDH, haptoglobin. WIth normal retics - concern for bone marrow dysfunction to play significant role
05/13
Worsening leukocytosis and placed overnight.
Oncology recommending to discontinue dexamethasone.
Increase hydroxyurea to 500 twice daily.
Added acyclovir
05/15
Worsening leukocytosis.
Follow-up with oncology recommendation
#Sore throat with R neck lump
#cough
#Viral COVID-19 pneumonia vs superimposed bacterial CAP with unspecified organism
R chemo port without surrounding redness or pain
CT neck w/wo contrast showed b/l ground glass opacitied on lung apex and An enlarged right level IIa cervical lymph node measures 1.4 x 1.2 cm
check for strep throat
Bcx NTD
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
legionella and Strep pneumonia urinary Ag neg
Sputum Cx
antitussives
05/13
Antibiotics continued, dexamethasone discontinued.
Isolation discontinued.
Most likely asymptomatic bacteriuria
UTI ruled out
Dysphagia.
Pur�ed
Hypokalemia.
Replace and continue to monitor.
BLAKE on admission with CKD stage 3a
Creatinine improved
Elevated alk phos
improved
Paroxysmal A-fib
Currently sinus rhythm.
Continue amiodarone
#Malaise with ambulatory dysfunction
2/2 acute disease
PT/OT
#Squamous cell CA of the skin
with large lump on R face
no significant signs of infection
Cont to follow with Derm upon D/C
History of hyperlipidemia.
Continue home meds.
History of hypertension.
Continue home med
CODE STATUS: DNR
DVT prophylaxis: SCD
Diet: Pur�ed
Disposition: Discharge home with home hospice today.
Total time spent on today's encounter was 40 minutes which included time spent in counseling the patient/family regarding diagnosis and treatment plan as listed above, goals of care, and symptom management. Case was discussed with nursing staff,
specialists, and care coordinators/case management. All labs and imaging personally reviewed by me. Remainder the time spent in detailed review of previous records, lab data, imaging, and other medical provider documentation.
Anticipated Discharge: Today
Discharge Plan
-
Patient Disposition: Home with Hospice
Discharge Diagnosis/Procedures: Acute hypoxic failure 2/2 Covid-19/superimposed bacterial pneumonia.
Acute myeloid leukemia
Diet: As tolerated, Chop all food and Supplements
Additional Diets: Soft diet
Activity: With assistance and As tolerated
Activity Restrictions/Additional Instructions:
Wound Care Instructions
R cheek: keep dressing in place, if starts to drain cover with gauze and silicone tape prn drainage.
Follow up with Dr. Templeton for dressing removal.
Referrals:
Tien Blake MD [Family Provider, [facility]]
Prescriptions:
Continued
rosuvastatin 10 MG tablet
10 mg PO QPM
amlodipine 5 mg Tablet
5 mg PO DAILY
amiodarone 100 mg tablet
100 mg PO DAILY
metoprolol tartrate 25 MG tablet
25 mg PO BID
Rx Instructions:
Take 50mg qam, 25mg qpm
acetaminophen [Tylenol] 325 mg Tablet
650 mg PO Q6HPRN PRN (Reason: mild pain)
Discontinued
doxycycline hyclate 100 mg Capsule
100 mg PO BID
Discharge Orders:
Discharge Patient (As Directed); Ordered 05/17/25
Ordered By: Omid Laura
Discharge Date and Time
Print Language: POLISH
--- NOTE | 2025-05-17 11:16 | VATNOTE ---
SQ port last Heparinized @ 1047 by primary RN. Unit then called for port de-access as pt. is being discharged to home. Port de-accessed per request.
== END 2025-05-17 12:39 | disposition hospice, home (50) | DRG 834 ==
LOC: 2 NORTH 18:18
PROVIDERS: Nurse Practitioner Acute Care; Student in an Organized Health Care Education/Training Program; ADMITTING PHYSICIAN Internal Medicine; ATTENDING PHYSICIAN General Practice; EMERGENCY PHYSICIAN Emergency Medicine; FAMILY PHYSICIAN Family Medicine; OTHER PHYSICIAN Internal Medicine Hematology & Oncology; OTHER PHYSICIAN Internal Medicine Infectious Disease
PROC: XW033E5 Introduction of Remdesivir Anti-infective into Peripheral Vein, Percutaneous Approach, New Technology Group 5 (ICD-10-PCS; 2025-05-10)
DX: C92.00 Acute myeloblastic leukemia, not having achieved remission (principal); A41.89 Other specified sepsis; J12.82 Pneumonia due to coronavirus disease 2019; J96.01 Acute respiratory failure with hypoxia; U07.1 COVID-19; J15.9 Unspecified bacterial pneumonia; R65.20 Severe sepsis without septic shock; R64 Cachexia; D84.9 Immunodeficiency, unspecified; N17.9 Acute kidney failure, unspecified; I48.0 Paroxysmal atrial fibrillation; E78.00 Pure hypercholesterolemia, unspecified; N18.31 Chronic kidney disease, stage 3a; C44.92 Squamous cell carcinoma of skin, unspecified; D69.6 Thrombocytopenia, unspecified; E86.0 Dehydration; I12.9 Hypertensive chronic kidney disease with stage 1 through stage 4 chronic kidney disease, or unspecified chronic kidney disease; D63.8 Anemia in other chronic diseases classified elsewhere; E53.8 Deficiency of other specified B group vitamins; L40.9 Psoriasis, unspecified; R13.10 Dysphagia, unspecified; E87.6 Hypokalemia; N40.0 Benign prostatic hyperplasia without lower urinary tract symptoms; R35.0 Frequency of micturition; I25.10 Atherosclerotic heart disease of native coronary artery without angina pectoris; R82.71 Bacteriuria; Z66 Do not resuscitate; Z87.01 Personal history of pneumonia (recurrent); Z83.3 Family history of diabetes mellitus; Z87.891 Personal history of nicotine dependence; Z95.5 Presence of coronary angioplasty implant and graft; Z92.21 Personal history of antineoplastic chemotherapy; Z88.8 Allergy status to other drugs, medicaments and biological substances; Z11.52 Encounter for screening for COVID-19
CPT/HCPCS: 70491; 71046; 80048; 80053; 81003; 81015; 82607; 82728; 82746; 83010; 83540; 83550; 83615; 83735; 84443; 84550; 85025; 85045; 85384; 85730; 87040; 87070; 87086; 87205; 87449; 87502; 87811; 87880; 87899; 92526; 92610; 92612; 93005; 97162; 97166; 97530; 97535; 99285; J0248; Q9967